=== PATIENT | male | born 1965 | race Caucasian/White ===

== ENCOUNTER 2020-01-03 00:49 | Day surgery (SDC) | payer OTHER, SELFPAY ==
[2019-12-28 14:18] VITALS: BMI 33.8
[2020-01-03 08:23] VITALS: BP 131/92; PULSE 79; RESP 18; TEMP 36.7
[2020-01-03] MEDS: LACTATED RINGERS 1,000 ML 150 ML IV CONT (08:25)
--- NOTE | 2020-01-03 08:37 | WPDANESEPPF ---
Anes - Initial Pre Proc Eval Procedure: Operation Date: 01/03/20 09:00 Proposed Procedures p Screening Colonoscopy - Nabeel Jhaveri DO Date/Time: 01/03/20 08:37 Surgeon: Nabeel Jhaveri DO Pre Op Diagnosis: Fam Hx Colon Ca Patient Data Age: 54 Gender: M Height: 1.8 m Weight: 107 kg Last Vital Signs Temp 36.7 C 01/03/20 08:23 Pulse 79 01/03/20 08:23 Resp 18 01/03/20 08:23 BP 131/92 H 01/03/20 08:23 Allergies Allergy/AdvReac Type Severity Reaction Status Date / Time levothyroxine sodium Allergy Severe Rash Verified 01/03/20 08:18 [From Levothroid] Home Medications Medication Instructions Recorded Confirmed Type escitalopram oxalate 20 mg PO DAILY 12/28/19 01/03/20 History fexofenadine [Herlinda Allergy] 60 mg PO Q12H 12/28/19 01/03/20 History meloxicam 15 mg PO DAILY 12/28/19 01/03/20 History testosterone cypionate 200 mg IM WEEKLY 12/28/19 01/03/20 History thyroid (pork) [[place] Thyroid] 60 mg PO DAILY 12/28/19 01/03/20 History vitamin B complex [Super B-50 1 cap PO DAILY 12/28/19 01/03/20 History Complex] Patient hx anesthesia problems: none Family hx anesthesia problems: none PMFSH Past Medical History Medical History (Updated 01/02/20 @ 14:20 by Aldair Lynch DO) Depression Hypothyroidism JULES (obstructive sleep apnea) Family History Family History (Updated 05/21/16 @ 23:19 by DOCTOR UNKNOWN) Mother Cerebrovascular accident Family history of kidney stones Father Family history of diabetes mellitus in first degree relative Family history of primary malignant neoplasm of liver Family history of malignant neoplasm of kidney Social History Social History Smoking status: Never smoker Alcohol intake: never Anes - Eval Final PreProcedure Day of Procedure 01/03/20 08:37 Patient weight: obese Heart: regular rate and rhythm Lungs: clear to auscultation and normal air movement Airway: Mallampati scale class II Neurological: alert and oriented Last oral intake: >/= 8 hours ASA classification: III Emergent: no Anesthetic plan: proceed Anesthesia type and monitoring: general GIVS and standard monitoring Informed Consent: The patient's anesthetic plan and its attendant risks and benefits were discussed with the patient/family/POA. Questions were solicited and answers provided to the satisfaction of the patient/family/POA.
--- NOTE | 2020-01-03 09:00 | P.HP_ITS ---
H&P: HPI History of Present Illness Chief complaint: Fam Hx Colon Ca Narrative: Reason for visit colonoscopy. This very pleasant gentleman is being seen at the request the primary physician. Patient was examined. Impression: Family history of colon cancer. Renal lithiasis. Hypothyroidism. Obstructive sleep apnea. Depression. Recommendation: Colonoscopy. History: This very pleasant gentleman is a family history colorectal cancer. His GI review systems negative. He is here for colonoscopy. Last colonoscopy was approximately 6 years or so ago. The patient has history of depression and is on medication for such. He also has a history of renal lithiasis. Physical examination: General: very pleasant patient in no acute distress. HEENT: Head was normocephalic sclerae is clear mouth without masses neck was supple. Heart: Rate rhythm regular without S3 or S4. Lungs: CTA. Abdomen: Soft with no guarding or rigidity. Bowel sounds were active. Neurologic: Cranial nerves 2 through 12 intact. No focal defects. No clonus. Musculoskeletal system: Revealed no joint tenderness or swelling no muscle atrophy. Extremities: Reveal no significant edema. Skin: Warm and dry with normal turgor. Mental status: intact. Patient is alert and oriented. Await thank you for allowing me to participate in the care of this most interesting patient. Review of Systems Review of Systems: All systems reviewed & are unremarkable except as noted in HPI and below PMFSH Past Medical History Medical History (Updated 01/03/20 @ 09:01 by Nabeel Jhaveri DO) Depression Hypothyroidism JULES (obstructive sleep apnea) Renal lithiasis Surgical History Surgical History (Updated 01/03/20 @ 09:02 by Nabeel Jhaveri DO) H/O lithotripsy Hx of colonoscopy Family History Family History (Updated 05/21/16 @ 23:19 by DOCTOR UNKNOWN) Mother Cerebrovascular accident Family history of kidney stones Father Family history of diabetes mellitus in first degree relative Family history of primary malignant neoplasm of liver Family history of malignant neoplasm of kidney Social History Social History Smoking status: Never smoker Alcohol intake: never Meds Home Medications and Allergies Home Medications Medication Instructions Recorded Confirmed Type escitalopram oxalate 20 mg PO DAILY 12/28/19 01/03/20 History fexofenadine [Herlinda Allergy] 60 mg PO Q12H 12/28/19 01/03/20 History meloxicam 15 mg PO DAILY 03/06/20 03/12/20 History testosterone cypionate 200 mg IM WEEKLY 12/28/19 01/03/20 History thyroid (pork) [[place] Thyroid] 60 mg PO DAILY 12/28/19 01/03/20 History vitamin B complex [Super B-50 1 cap PO DAILY 12/28/19 01/03/20 History Complex] Allergies Allergy/AdvReac Type Severity Reaction Status Date / Time levothyroxine sodium Allergy Severe Rash Verified 01/03/20 08:18 [From Levothroid] Vital Signs Vital Signs - 24 hr 01/03/20 08:23 Temperature 36.7 C Pulse Rate 79 Respiratory Rate 18 Blood Pressure 131/92 H
[2020-01-03 09:38] VITALS: BP 107/68; PULSE 67; RESP 20; O2SAT 95
[2020-01-03 09:48] VITALS: BP 115/77; PULSE 65; RESP 14; O2SAT 96
[2020-01-03 09:58] VITALS: BP 118/82; PULSE 70; RESP 19; O2SAT 97
== END 2020-01-03 10:14 | disposition home or self-care (01) ==
PROVIDERS: PCP Physician Assistant; Visit Provider Internal Medicine Gastroenterology
PROC: 0DJD8ZZ Inspection of Lower Intestinal Tract, Via Natural or Artificial Opening Endoscopic (ICD-10-PCS; CPT 45378; principal; 2020-01-03 09:00)
DX: Z12.11 Encounter for screening for malignant neoplasm of colon (principal); K63.5 Polyp of colon; K62.1 Rectal polyp; K64.8 Other hemorrhoids; E03.9 Hypothyroidism, unspecified; G47.33 Obstructive sleep apnea (adult) (pediatric); F32.9 Major depressive disorder, single episode, unspecified; E66.9 Obesity, unspecified; Z68.32 Body mass index [BMI] 32.0-32.9, adult
CPT/HCPCS: 45385; 45380; 88305; J2704; J7120

== ENCOUNTER 2020-01-11 08:26 | Outpatient (CLI) | payer OTHER, SELFPAY ==
--- NOTE | ~2020-01-11 | XR_ITS ---
XR abdomen/kub 1V DATE: 01/11/2020 08:46 INDICATION: Right groin pain TECHNIQUE: AP projection, 2 views COMPARISON: 04/20/[address] abdomen pelvis examination FINDINGS: There is an approximately 3 x 5 mm calcified calculus overlying the proximal right ureter a t the L2-3 level. There are multiple calcifications overlying the right kidney consistent with multip le right renal stones. No calcifications are noted overlying the left kidney. The psoas shadows are intact. No visceromegaly is evident. The bowel gas pattern is unremarkable, without evidence of obstruction. IMPRESSION: Approximately 3 x 5 mm proximal calcified right ureteral calculus Multiple nonobstructing right kidney stones Reviewed, dictated and finalized at [facility]. Reviewed, dictated and finalized at location D.
== END 2020-01-11 08:27 | disposition home or self-care (01) ==
PROVIDERS: PCP Physician Assistant; Visit Provider Physician Assistant
DX: R10.31 Right lower quadrant pain (principal); N20.0 Calculus of kidney
CPT/HCPCS: 74018

== ENCOUNTER → 2020-01-23 10:52 | Outpatient (CLI) | payer OTHER, SELFPAY ==
--- NOTE | ~2020-01-23 | XR_ITS ---
XR abdomen/kub 1V DATE: 01/23/2020 11:23 INDICATION: Right ureteral stone TECHNIQUE: AP projection, 2 views COMPARISON: 01/11/2020 KUB 01/23/2020 CT abdomen pelvis noncontrast examination FINDINGS: A calcified stone previously overlying the proximal right ureter on the 01/11/2020 KUB now i s noted in the lower pole right kidney. There are multiple right renal calcified stones. The psoas shadows are intact. No visceromegaly is evident. No evidence of bowel obstruction. Included skeletal structures are unremarkable, with the exception of a transitional lumbosacral verte bra with sacralization and pseudoarthrosis on the right. IMPRESSION: Nephrolithiasis Reviewed, dictated and finalized at [facility]. Reviewed, dictated and finalized at location B. IMPRESSION: Nephrolithiasis
--- NOTE | ~2020-01-23 | CT_ITS ---
EXAMINATION: CT abdomen pelvis wo con DATE: 01/23/2020 11:22 INDICATION: Right ureteral stone TECHNIQUE: Computed tomography (CT) of the abdomen and pelvis was performed without intravenous contr ast. Automated exposure control and iterative reconstruction technique were employed. Exam dose: 911 .67 mGy-cm total exam DLP. COMPARISON: 01/23/2020 KUB 01/11/2020 KUB 04/12/[address] abdomen pelvis FINDINGS: Normal heart size. No pericardial or pleural effusion. The lung bases are clear. The liver, spleen, pancreas and adrenal glands are unremarkable. No renal space-occupying mass lesion is evident on this limited noncontrast examination. There is approximately 3.5 mm obstructing proximal right ureteral calculus at the L2-3 level, with mo derate proximal right hydroureteronephrosis. There are multiple right nonobstructing kidney stones measuring up to 8 mm dimension, and several sma ll left nonobstructing kidney stones. No left ureteral calculus or left-sided hydronephrosis. Normal caliber of the abdominal aorta. No intraperitoneal or retroperitoneal or pelvic mass lesion or adenopathy or ascites. There is mild to moderate diffuse thickening of the urinary bladder wall there is moderate moderate p rostate enlargement. Small fat-containing inguinal hernias. Normal appendix. No bowel obstruction or bowel wall thickening, pneumatosis or intraperitoneal free a ir. Small fat-containing umbilical hernia. Diffuse idiopathic skeletal hyperostosis of the lower thoracic spine. No suspicious osteolytic or ost eoblastic lesions are noted. IMPRESSION: Approximately 3.5 mm obstructing calcified proximal right ureteral stone with moderate r ight hydronephrosis Bilateral nonobstructive nephrolithiasis Reviewed, dictated and finalized at [facility]. Reviewed, dictated and finalized at location B. IMPRESSION: Approximately 3.5 mm obstructing calcified proximal right ureteral stone with moderate right hydronephrosis Bilateral nonobstructive nephrolithiasis
== END ==
PROVIDERS: Visit Provider Urology
DX: N20.1 Calculus of ureter (principal); N20.0 Calculus of kidney; N13.30 Unspecified hydronephrosis
CPT/HCPCS: 74018; 74176

== ENCOUNTER 2020-02-11 12:02 | Outpatient (CLI) | payer OTHER, SELFPAY ==
--- NOTE | ~2020-02-11 | CT_ITS ---
EXAMINATION: CT abdomen pelvis wo con DATE: 02/11/2020 12:32 INDICATION: Calculus of the ureter TECHNIQUE: Computed tomography (CT) of the abdomen and pelvis was performed without intravenous contr ast. Automated exposure control and iterative reconstruction technique were employed. The dose-length product was 460.83 mGy-cm. COMPARISON: 01/23/2020 and 02/11/2020 FINDINGS: Lung bases are clear. Heart size is normal. No pericardial or pleural effusion. Liver, gallbladder, s pleen, pancreas and bilateral adrenal glands are normal. Bilateral nephrolithiasis with 5-6 x 4 mm ob structing stone at the right ureteropelvic junction with mild to moderate right hydronephrosis. At le ast 8 additional stones in the right kidney the next largest measuring 6 7 7 mm to lower pole and 3-4 mm at the upper pole. There are 2 small left renal stones measuring up to 2 mm. No stones along the ureters or left-sided hydronephrosis. Bladder is normal. Bowels including the appendix are normal. Sm all fat-containing left inguinal hernia. No free intraperitoneal gas or fluid. No pathologically enla rged abdominal or pelvic lymphadenopathy. Chronic mild anterior wedging at T5. Mild thoracic spondylo sis. IMPRESSION: 1. Bilateral nephrolithiasis with obstructing 5-6 x 4 mm stone at the right ureteropelvic junction wi th mild to moderate right hydronephrosis. Reviewed, dictated and finalized at location A. IMPRESSION: 1. Bilateral nephrolithiasis with obstructing 5-6 x 4 mm stone at the right ure teropelvic junction with mild to moderate right hydronephrosis.
--- NOTE | ~2020-02-11 | XR_ITS ---
XR abdomen/kub 1V DATE: 02/11/2020 12:16 INDICATION: Ureteral calculus TECHNIQUE: AP projection, 2 views COMPARISON: 01/23/2020 KUB FINDINGS: There is an approximately 6 L calcified calculus overlying the proximal right ureter. Multi ple additional calcified calculi are noted overlying the right kidney and possibly some subtle calcif ications of the left kidney as well. The psoas shadows are intact. No visceromegaly is evident. No evidence of bowel obstruction. Transitional lumbosacral vertebra with sacralization and pseudoarthrosis on the right. IMPRESSION: Approximately 6 mm calcified calculus of proximal right ureter Nephrolithiasis Reviewed, dictated and finalized at [facility]. Reviewed, dictated and finalized at location A.
== END 2020-02-11 12:03 | disposition home or self-care (01) ==
LOC: ANHIMG 12:03
PROVIDERS: PCP Physician Assistant; Visit Provider Urology
DX: N20.1 Calculus of ureter (principal); N20.0 Calculus of kidney; N13.30 Unspecified hydronephrosis
CPT/HCPCS: 74018; 74176

== ENCOUNTER 2020-03-06 11:11 | Outpatient (CLI) | payer OTHER, SELFPAY ==
--- NOTE | ~2020-03-06 | XR_ITS ---
XR abdomen/kub 1V DATE: 03/06/2020 11:28 INDICATION: Ureteral calculus TECHNIQUE: AP projection, 2 views COMPARISON: 02/11/2020 KUB 02/11/[address] abdomen pelvis FINDINGS: Previously reported 6 mm calcified stone overlying proximal right ureter is no longer prese nt. No apparent calcifications are noted overlying the kidneys on the current KUB. Noncontrast CT abd omen pelvis examination would be more sensitive for detection of any urinary tract calculi. No bowel obstruction. The psoas shadows are intact. No visceromegaly is evident. Diffuse idiopathic skeletal hyperostosis of the thoracic spine. Transitional lumbosacral vertebra with sacralization and pseudoarthrosis on the right. IMPRESSION: Resolution of 6 mm proximal right ureteral calcified stone since 02/11/2020 Reviewed, dictated and finalized at [facility]. Reviewed, dictated and finalized at location A.
== END 2020-03-06 11:12 | disposition home or self-care (01) ==
LOC: ANHIMG 11:16
PROVIDERS: PCP Physician Assistant; Visit Provider Urology
DX: N20.1 Calculus of ureter (principal)
CPT/HCPCS: 74018

== ENCOUNTER 2021-02-13 08:00 | Outpatient (CLI) | payer OTHER, SELFPAY ==
--- NOTE | ~2021-02-13 | XR_ITS ---
XR abdomen/kub 1V DATE: 02/13/2021 08:27 INDICATION: Bilateral kidney stones TECHNIQUE: AP projection, 2 views COMPARISON: 03/06/[address] abdomen pelvis FINDINGS: Multiple (at least 5) small (approximately 3 mm or smaller) faint calcific densities are no esteban overlying the lower pole the right kidney. Noncontrast CT examination would be more sensitive 4 d etection and localization of urinary tract calculi. No apparent calcification overlying the ureters. Stable several left-sided calcified pelvic phlebolit hs. No visceromegaly is evident. The psoas shadows are intact. No evidence of bowel obstruction. IMPRESSION: Right nephrolithiasis Reviewed, dictated and finalized at [facility]. Reviewed, dictated and finalized at location A. IMPRESSION: Right nephrolithiasis
== END 2021-02-13 08:01 | disposition home or self-care (01) ==
LOC: ANHIMG 08:06
PROVIDERS: PCP Physician Assistant; Visit Provider Nurse Practitioner Adult Health
DX: N20.0 Calculus of kidney (principal)
CPT/HCPCS: 74018

== ENCOUNTER 2023-08-06 12:02 | Emergency (ER) | payer OTHER, SELFPAY ==
[2023-08-06 12:05] VITALS: BP 174/93; PULSE 87; RESP 16; TEMP 36.3; O2SAT 98
--- NOTE | 2023-08-06 12:38 | ED.HEATRA ---
HPI - Head Injury General Chief complaint: Head Injury Stated complaint: head injury, small laceration Time Seen by Provider: 08/06/23 12:18 Source: patient Mode of arrival: ambulatory Limitations: no limitations History of Present Illness HPI Narrative: This is a 57 year old male that presents to the ER for a head injury just prior to arrival. Reports he was trimming bushes and the handle of the hand zipper trimmer hit him in the head. Sustained a laceration above his right eyebrow. He is up to date on tetanus. Denies vision changes, vomiting, numbness or weakness. Related Data Home Medications Medication Instructions Recorded Confirmed escitalopram oxalate 20 mg tablet 20 mg PO DAILY 12/28/19 09/22/22 fexofenadine 60 mg tablet (Herlinda 60 mg PO Q12H 12/28/19 09/22/22 Allergy) meloxicam 15 mg tablet 15 mg PO DAILY 12/28/19 09/22/22 testosterone cypionate 200 mg/mL 200 mg IM WEEKLY 12/28/19 09/22/22 intramuscular oil thyroid (pork) 60 mg tablet 60 mg PO DAILY 12/28/19 09/22/22 ([place] Thyroid) vitamin B complex (Super B-50 1 cap PO DAILY 12/28/19 09/22/22 Complex capsule) acetaminophen 500 mg tablet 500 mg PO Q6H PRN 08/11/22 09/22/22 (Tylenol Extra Strength) antiarthritic combination no.2 900 mg PO 08/11/22 09/22/22 mg tablet (glucosamine-chondroitin) aspirin 325 mg tablet 325 mg PO DAILY 08/11/22 09/22/22 bupropion HCl 300 mg 24 hr tablet, 300 mg PO QAM 08/11/22 09/22/22 extended release caffeine 200 mg tablet 200 mg PO BID PRN 08/11/22 09/22/22 cholecalciferol (vitamin D3) 125 125 mcg PO DAILY 08/11/22 09/22/22 mcg (5,000 unit) capsule omega-3 fatty acids-fish oil 360 1 cap PO DAILY 08/11/22 09/22/22 mg-1,200 mg capsule (Fish Oil) Allergies Allergy/AdvReac Type Severity Reaction Status Date / Time levothyroxine sodium Allergy Severe Rash Verified 09/22/22 13:30 [From Levothroid] Review of Systems Review of Systems: CONSTITUTIONAL: Denies fever EYES: Denies visual changes GASTROINTESTINAL: Denies vomiting NEUROLOGIC: Denies headache, numbness, or weakness. All systems reviewed & are unremarkable except as noted in HPI and below PMFSH Past Medical History Medical History (Updated 08/06/23 @ 12:51 by Paige Ruff PA-C) Adenomatous colon polyp Allergies Arthritis Asthma Depression History of kidney stones Hypertension Hypothyroidism JULES (obstructive sleep apnea) Renal lithiasis Tear of left rotator cuff Thyroid disorder Surgical History Surgical History H/O lithotripsy History of elbow surgery Hx of colonoscopy Family History Family History Mother Cerebrovascular accident Family history of kidney stones Asthma Depression Thyroid disorder Father Family history of diabetes mellitus in first degree relative Family history of primary malignant neoplasm of liver Family history of malignant neoplasm of kidney Diabetes mellitus Hypertension Depression Heart disease Cerebrovascular accident Sibling Depression Social History Social History Smoking status: Never smoker Alcohol intake: never Substance use: never Living arrangements: with roommate(s) 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 HEAD: Normocephalic. 1.5cm linear superficial laceration above the right eyebrow EYES: PERRLA and EOMI. ENT: Nares clear, no rhinorrhea or epistaxis. Mucous membranes moist. Oropharynx without tonsillar hypertrophy exudate or other lesions. Bilateral TMs pearly paul non-bulging NECK: Supple. No adenopathy or masses. CHEST: Clear to auscultation. No respiratory distress. No wheezes rales or rhonchi HEART: Regular rate and rhythm. No murmur heard. Normal peripheral pulses. EXTREMITIES: Nor
[2023-08-06 12:57] VITALS: BP 163/98; PULSE 89; RESP 16; TEMP 36.6; O2SAT 100
== END 2023-08-06 13:10 | disposition home or self-care (01) ==
PROVIDERS: Emergency Provider Physician Assistant; PCP Physician Assistant
DX: S01.111A Laceration without foreign body of right eyelid and periocular area, initial encounter (principal); J45.909 Unspecified asthma, uncomplicated; I10 Essential (primary) hypertension; G47.33 Obstructive sleep apnea (adult) (pediatric); E03.9 Hypothyroidism, unspecified; M19.90 Unspecified osteoarthritis, unspecified site; F32.A Depression, unspecified; Z79.82 Long term (current) use of aspirin; Z86.010 Personal history of colon polyps; Z87.442 Personal history of urinary calculi; W22.8XXA Striking against or struck by other objects, initial encounter; Y93.H2 Activity, gardening and landscaping
CPT/HCPCS: 12011; 99283

== ENCOUNTER 2024-12-14 10:27 | Emergency (ER) | payer OTHER, SELFPAY ==
[2024-12-14] VITALS (14 sets, daily range): BP systolic 147–176; BP diastolic 99–113; PULSE 85–96; RESP 18; TEMP 36.6; O2SAT 92–100
--- NOTE | ~2024-12-14 | CT_ITS ---
EXAMINATION: CT abdomen pelvis wo con DATE: 12/14/2024 13:18 INDICATION: Left lower quadrant abdominal pain. Nephrolithiasis. TECHNIQUE: Computed tomography (CT) of the abdomen and pelvis was performed without intravenous contr ast. Automated exposure control and iterative reconstruction technique were employed. The dose-length product was 432.82 mGy-cm. COMPARISON: 02/11/2020 FINDINGS: Lung bases are clear. Heart size is normal. No pericardial or pleural effusion. Liver, gallbladder, s pleen, pancreas and bilateral adrenal glands are normal. Multiple bilateral renal stones with 5 mm ob structing stone at the proximal left ureter resulting in mild left hydronephrosis and moderate perine phric stranding. There are at least 12 stones in the right kidney, the largest clustered in a lower p ole calyx measuring up to 6 mm in maximal diameter. There are at least 7 additional stones in the lef t kidney, the largest measuring up to 4 mm. No other ureteral stones. Small region of increased densi ty in the right deep and aspirated bladder near the ureterovesicular junction consistent with collect ion minute stones or milk of calcium. No other ureteral stones. Bladder is otherwise unremarkable. Dimitris wels including appendix are normal. Prostatomegaly measuring 5.3 x 4.3 cm. Small left fat-containing inguinal hernia. No free intraperitoneal gas or fluid. No pathologically enlarged abdominal or pelvic lymphadenopathy. Mild lumbar and lower thoracic spondylosis. IMPRESSION: 1. Bilateral nephrolithiasis with obstructing 5 mm stone at the proximal left ureter with mild left h ydronephrosis and moderate perinephric stranding. Reviewed, dictated and finalized at location A. AR SEPARATOR IMPRESSION: 1. Bilateral nephrolithiasis with obstructing 5 mm stone at the proximal left u reter with mild left hydronephrosis and moderate perinephric stranding.
--- OUTSIDE RECORDS SUMMARY | 2024-12-14 11:01 | XMS_ITS ---
Author Organization Unknown Medications Medication Instructions Effective Dates (start - stop) Status 24 HR bupropion hydrochlorid e 300 MG Extended Release Oral Tablet [id number]:00:00.00 0+00:00 - Completed escitalopram 20 MG Oral Tablet 2 [id number]:00:00.000+00:00 - Completed - [id number]:00 :00.000+00:00 - Completed ofloxacin 3 MG/ML Ophthalmic Solution [id number]:00:00.000+00:0 0 - Completed meloxicam 15 MG Oral Tablet 2022T:00:00.000+00:00 - Completed fluticasone propionate 0.05 MG/ACTUAT Metered Dose Nasal [place] [id number]:00:00.000+00:0 0 - Completed meloxicam 15 MG Oral Tablet 2022:00:00.000+00:00 - Completed escitalopram 20 MG Oral Tablet 2 [id number]:00:00.000+00:00 - Completed triamcinolone acetonide 1 MG /ML Topical Cream [id number]:00:00.000+00:0 0 - Completed - [id number]:00 :00.000+00:00 - Completed escitalopram 20 MG Oral Tablet 2 [id number]:00:00.000+00:00 - Completed 24 HR bupropion hydrochlorid e 300 MG Extended Release Oral Tablet [id number]:00:00.00 0+00:00 - Completed escitalopram 20 MG Oral Tablet 2 [id number]:00:00.000+00:00 - Completed 24 HR bupropion hydrochlorid e 300 MG Extended Release Oral Tablet [id number]:00:00.00 0+00:00 - Completed 24 HR bupropion hydrochlorid e 300 MG Extended Release Oral Tablet [id number]:00:00.00 0+00:00 - Completed ofloxacin 3 MG/ML Otic Solution [id number]:00:00.000+00:00 - Completed meloxicam 15 MG Oral Tablet 2021:00:00.000+00:00 - Completed amoxicillin 875 MG / clavula abhilash 125 MG Oral Tablet [id number]:00:00.000+00:0 0 - Completed Patient Care team information Name Category Status Period Participants - - Proposed period not known -
--- OUTSIDE RECORDS SUMMARY | 2024-12-14 11:01 | XMS_ITS | Clinical Summary ---
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 Name Role Phone Tamiko Solitario Primary Care Provider [phone] Allergies No known active allergies Medications fexofenadine (HERLINDA) 180 mg tablet 1 tablet (180 mg total) daily Active vitamin B complex capsule Rx: Vitamin B Complex-C - Capsule Active cyanocobalamin 2,000 mcg tablet daily Active BD LUER-KAYLEEN SYRINGE 3 mL 23 x 1 syringe USE WEEKLY WITH TESTOSTERONE 12 Syringe 3 9 Active testosterone cypionate (DEPO-TESTOTER ONE) 200 mg/mL injection Inject 0.5 mL (100 mg total) into the muscle as instructed once a week 6 mL 1 9 Active triamcinolone (KENALOG) 0.1 % cream Apply topically 2 (two) times a day as needed for irritation 45 g 3 Active zinc gluconate 50 mg tablet Take 1 tablet (50 mg total) by mouth daily Active fluticasone propionate (FLONASE) 50 mcg/actuation nasal sprayIndicatio ns:Acute maxillary sinusitis, recurrence not specified Administer 2 sprays into each nostril daily 1 each 3 Active omega 3-oqw-wus-fish oil 1,000 mg (120 mg-180 mg) capsule Active glucosam-navid- tkz7-C-owxy-melanie sw 750 mg-644 mg- 30 mg-1 mg tablet Take by mouth Active calcium sirv-M3-terair ium glo 133 mg calcium -133 unit-67 mg capsule Take by mouth Activ e albuterol HFA (PROVENTIL HFA,VENTOLIN HFA,PROAIR HFA) 90 mcg/actuation inhaler Inhale 2 puffs every 6 (six) hours as needed for wheezing 1 each 1 4 12/20/19 25 Active cyclobenzaprin e (FLEXERIL) 10 mg tabletIndicati ons:Muscle soreness Take 1 tablet (10 mg total) by mouth 2 (two) times a day as needed for muscle spasms for up to 5 days 10 tablet 4 Active buPROPion XL (WELLBUTRIN XL) 300 mg 24 hr tablet TAKE 1 TABLET BY MOUTH EVERY DAY IN THE MORNING 90 tablet 1 4 Active Kingsbury Thyroid 60 mg tablet TAKE 1 TABLET BY MOUTH EVERY DAY 30 tablet 5 4 Active escitalopram (LEXAPRO) 20 mg tablet TAKE 1 TABLET BY MOUTH EVERY DAY 90 tablet 1 4 Active meloxicam (MOBIC) 15 mg tabletIndicati ons:Right sided sciatica TAKE 1 TABLET BY MOUTH EVERY DAY 30 tablet 5 4 Active benzonatate (TESSALON) 200 mg capsuleIndicat ions:Acute cough Take 1 capsule (200 mg total) by mouth 3 (three) times a day as needed for cough keep tessalon out of reach of children, especially children under the age of 10, due to possible serious risk such as if ingested by children under the age of 10. 30 capsule 5 Active amoxicillin-cl avulanate (Augmentin) 875-125 mg per tabletIndicati ons:Acute maxillary sinusitis, recurrence not specified Take 1 tablet by mouth 2 (two) times a day for 7 days 14 tablet 5 12/03/19 25 Active Problems Problem Noted Date Diagnosed Date Diabetes mellitus screening 06/20/2024 Assessment & Plan (06/20/2024 5:27 PM CDT): Check labs Elevated hemoglobin (CMS/HCC) 12/31/2023 Assessment & Plan (06/20/2024 5:27 PM CDT): Elevated hemoglobin. Recheck labs. Maybe secondary to his testosterone Assessment & Plan (12/31/2023 3:04 PM MANAGER GRAPHIC): Patient has elevated hemoglobin. Check iron indices. He declines any knowledge of hemochromatosis in the family Obesity (BMI 30-39.9) 06/15/2023 Assessment & Plan (06/20/2024 5:27 PM CDT): Discussed the patient's BMI. The BMI is above average. BMI management plan is completed. BMI Follow-up includes: nutrition counseling, exercise counseling and education provided. Assessment & Plan (02/17/2024 2:56 PM CDT): Weight/BMI is in healthy range. Continue healthy lifestyle to maintain. Assessment & Plan (12/31/2023 3:02 PM MANAGER GRAPHIC): Discussed the patient's BMI. The BMI is above average. BMI management plan is completed. BMI Follow-up includes: nutrition counseling, exercise counseling and education provided. Assessment & Plan (06/15/2023 9:16 AM CDT): Discussed the patient's BMI. The BMI is above average. BMI management plan is completed. BMI Follow-up includes: nutrition counseling, exercise counseling and education provided. Grief 06/15/2023 Assessment & Plan (06/20/2024 8:59 AM CDT): Persistent depression symptoms that seem to be intensified by grief of his father's about a year ago. Discussed grief counseling with [facility] as well as grief share groups. Discussed adding medication to his Lexapro 20 and Wellbutrin XL 300 but together agreed that counseling is helping at this point is most important Assessment & Plan (06/15/2023 10:23 PM CDT): Doing well with Lexapro and Wellbutrin. Feels like he needs a little more help as worried about anxiety. Will go ahead and start BuSpar 10 mg up to t.i.d. p.r.n.. Strongly encouraged counseling through hospice. Also encouraged him sit with hospice so that he understands the dying process so that him and his dad will both have more comfort during this time. Annual physical exam 12/10/2021 Assessment & Plan (06/20/2024 8:59 AM CDT): Encouraged healthy lifestyle, good nutrition and exercise. Encouraged Calcium and Vitamin D and weight bearing exercise for bone health. Reviewed immunizations Reviewed age appropirate screenings. Assessment & Plan (12/31/2023 2:58 PM MANAGER GRAPHIC): Encouraged healthy lifestyle, good nutrition and exercise. Encouraged Calcium and Vitamin D and weight bearing exercise for bone health. Reviewed immunizations Reviewed age appropirate screenings. Assessment & Plan (12/15/2022 9:24 AM MANAGER GRAPHIC): Encouraged healthy lifestyle, good nutrition and exercise. Encouraged Calcium and Vitamin D and weight bearing exercise for bone health. Reviewed immunizations Reviewed age appropirate screenings. Assessment & Plan (12/10/2021 6:28 PM MANAGER GRAPHIC): Encouraged healthy lifestyle, good nutrition and exercise. Encouraged Calcium and Vitamin D and weight bearing exercise for bone health. Reviewed immunizations Reviewed age appropirate screenings. Chronic nasal congestion 08/09/2021 Assessment & Plan (08/09/2021 9:26 PM CDT): Suspect this is sinusitis but with a pandemic in our community will go ahead and rule out COVID. He will be sent for COVID testing at this wants the collection site. He is to quarantine until those test results are available. Will go ahead and start antibiotic, antihistamine (Claritin OR Zyrtec), Mucinex 12hour and Steroid nasal spray (Flonase). Push fluids. Rest. Supportive care. If sxs worsen or don\'t improve, pt is to followup in the office. Fatigue 06/04/2021 Assessment & Plan (06/20/2024 5:27 PM CDT): Probably multifactorial. Check labs and followup to re-evaluate Assessment & Plan (12/15/2022 9:23 AM MANAGER GRAPHIC): Probably multifactorial. Check labs and followup to re-evaluate Assessment & Plan (12/10/2021 6:26 PM MANAGER GRAPHIC): Probably multifactorial. Check labs and followup to re-evaluate Assessment & Plan (06/04/2021 8:40 AM CDT): Probably multifactorial. Check labs and followup to re-evaluate Mixed hyperlipidemia 06/04/2021 Assessment & Plan (06/20/2024 5:27 PM CDT): Encouraged patient to follow low fat/low chol diet like the Mediterranean diet. Increase good fats in the diet. Increase exercise. Monitor labs as needed. Assessment & Plan (12/31/2023 2:59 PM MANAGER GRAPHIC): Encouraged patient to follow low fat/low chol diet like the Mediterranean diet. Increase good fats in the diet. Increase exercise. Monitor labs as needed. Assessment & Plan (12/15/2022 9:23 AM MANAGER GRAPHIC): Encouraged patient to follow low fat/low chol diet like the Mediterranean diet. Increase good fats in the diet. Increase exercise. Monitor labs as needed. Assessment & Plan (12/10/2021 6:26 PM MANAGER GRAPHIC): Encouraged patient to follow fat/low chol diet like the Mediterranean diet. Increase good fats in the diet. Increase exercise. Monitor labs as needed. Assessment & Plan (06/04/2021 8:39 AM CDT): Encouraged patient to follow fat/low chol diet like the Mediterranean diet. Increase good fats in the diet. Increase exercise. Monitor labs as needed. Right sided sciatica 05/30/2020 Assessment & Plan (05/30/2020 7:55 PM CDT): NSAIDs prn ICE/heat Exercise/activity, do not sit/lay around excessively Encouraged PT. . Family history of colon cancer 05/22/2019 Assessment & Plan (06/20/2024 8:57 AM CDT): Next colonoscopy is due in December of 2024. Will refer to his next visit as he prefers to see Dr. Erik billings at [facility]. Assessment & Plan (07/07/2019 10:26 AM CDT): Pt has made contact with Dr. Jhaveri again for followup colonoscopy. He plans to repeat in the new year. Assessment & Plan (05/22/2019 8:21 AM CDT): Refer back to Dr. Jhaveri for repeat colonoscopy Seasonal allergies 04/06/2019 Assessment & Plan (06/20/2024 8:58 AM CDT): Continue allergy regimen with Herlinda albuterol and Flonase Assessment & Plan (12/31/2023 3:01 PM MANAGER GRAPHIC): Continue with allergy regimen Assessment & Plan (06/04/2021 6:42 AM CDT): Stable with current otc regimen Assessment & Plan (12/01/2020 8:27 AM MANAGER GRAPHIC): Continue otc prn Assessment & Plan (07/07/2019 10:27 AM CDT): Stable with current regimen. BMI 32.0-32.9,adult 10/21/2018 Assessment & Plan (06/20/2024 5:26 PM CDT): Discussed the patient's BMI. The BMI is above average. BMI management plan is completed. BMI Follow-up includes: nutrition counseling, exercise counseling and education provided. Assessment & Plan (07/07/2019 10:25 AM CDT): Obesity is unchanged. Discussed the patient's BMI. The BMI is above average. BMI management plan is completed. BMI Follow-up includes: nutrition counseling, exercise counseling and education provided. Assessment & Plan (02/01/2019 8:44 AM CDT): BMI Follow-up includes: Discussed diet and exercising counseling. Acquired hypothyroidism 07/03/2018 Assessment & Plan (06/20/2024 5:27 PM CDT): Continue Kingsbury 60 mg. Monitor labs. Assessment & Plan (12/31/2023 2:59 PM MANAGER GRAPHIC): Continue levothyroxine. Monitor labs. Assessment & Plan (06/15/2023 10:22 PM CDT): Continue levothyroxine. Monitor labs. Assessment & Plan (12/15/2022 9:23 AM MANAGER GRAPHIC): Continue levothyroxine. Monitor labs. Assessment & Plan (12/10/2021 6:23 PM MANAGER GRAPHIC): Continue levothyroxine. Monitor labs. Assessment & Plan (06/04/2021 6:41 AM CDT): Continue levothyroxine. Monitor labs. Assessment & Plan (12/01/2020 8:27 AM MANAGER GRAPHIC): Check labs. Continue Kingsbury Assessment & Plan (04/28/2020 8:30 AM CDT): Due to check labs. Continue replacement Assessment & Plan (11/26/2019 9:13 AM MANAGER GRAPHIC): Continue replacement Assessment & Plan (07/07/2019 10:25 AM CDT): Stable. Continue replacement Assessment & Plan (05/22/2019 8:11 AM CDT): Continue with the Kingsbury. Check the labs prn Hypogonadism in male 07/03/2018 Assessment & Plan (06/20/2024 8:58 AM CDT): Continue with urology for testosterone injections Assessment & Plan (12/31/2023 2:59 PM MANAGER GRAPHIC): Continue testosterone supplement per Urology Assessment & Plan (12/15/2022 9:23 AM MANAGER GRAPHIC): Continue per Urology for management of his hypogonadism and testosterone replacement Assessment & Plan (12/10/2021 6:23 PM MANAGER GRAPHIC): Continue Testosterone replacement managed by Urology Assessment & Plan (06/04/2021 6:41 AM CDT): Continue testosterone injections per Urology Assessment & Plan (12/01/2020 10:32 AM MANAGER GRAPHIC): Managed by Urology Assessment & Plan (04/28/2020 8:30 AM CDT): Managed by Urology Assessment & Plan (11/26/2019 9:12 AM MANAGER GRAPHIC): Continue the replacement Assessment & Plan (07/07/2019 10:24 AM CDT): Stable with testosterone replacement Assessment & Plan (05/22/2019 8:11 AM CDT): Continue the supplement Moderate episode of recurrent major depressive d isorder 05/30/2017 Assessment & Plan (06/20/2024 8:59 AM CDT): Persistent depression symptoms that seem to be intensified by grief of his father's about a year ago. Discussed grief counseling with E[facility] as well as grief share groups. Discussed adding medication to his Lexapro 20 and Wellbutrin XL 300 but together agreed that counseling is helping at this point is most important Assessment & Plan (12/31/2023 3:02 PM MANAGER GRAPHIC): Stable with Wellbutrin and Lexapro Assessment & Plan (06/15/2023 10:22 PM CDT): Doing well with Lexapro and Wellbutrin. Feels like he needs a little more help as worried about anxiety. Will go ahead and start BuSpar 10 mg up to t.i.d. p.r.n.. Strongly encouraged counseling through hospice. Also encouraged him sit with hospice so that he understands the dying process so that him and his dad will both have more comfort during this time. Assessment & Plan (12/15/2022 9:23 AM MANAGER GRAPHIC): Continue Wellbutrin and Lexapro Assessment & Plan (12/10/2021 6:22 PM MANAGER GRAPHIC): Patient is having increased depression sxs. He denies any suicidal or homocidal thoughts. Continue LExapro 20 Increase WellbutrinXL 300mg He is to call if he notes increase in sxs or if his sxs don't respond to the dose increase. Assessment & Plan (06/04/2021 6:42 AM CDT): Stable with wellbutrin and lexapro Assessment & Plan (12/01/2020 8:27 AM MANAGER GRAPHIC): Continue lexapro and Wellbutrin Assessment & Plan (05/30/2020 7:54 PM CDT): Improving with addition of the Wellbutrin. Continue the lexparo Assessment & Plan (04/28/2020 8:31 AM CDT): Continue lexapro. Start Wellbutrin. No history of seizures. Reviewed risks, benefit, alternatives, side effects and proper use. Take first thing in the morning. He is on swing so will have to shift the dosing. He voiced understanding. Assessment & Plan (11/26/2019 9:18 AM MANAGER GRAPHIC): Stable with the Lexapro. Assessment & Plan (07/07/2019 10:27 AM CDT): This is a significant, separately identifiable problem that was evaluated and managed on the same day as the wellness exam Improving with the Lexapro. Still not sleeping great. Monitor closely as may be more related to shift work. Assessment & Plan (05/22/2019 8:24 AM CDT): Not fully controlled. Increase to 20mg daily. Will send a new Rx. Followup 4-6 weeks Resolved Problems Problem Noted Date Diagnosed Date Resolved Date Left thigh pain 02/17/2024 06/20/2024 Assessment & Plan (02/17/2024 3:00 PM CDT): Patient is complaining of left thigh pain. He states he feels very point tender mid thigh lateral side. I do not appreciate an actual mass but I can appreciate the tenderness. He describes numb streak from his groin down to his ankle on the medial side. He has good strength and full range of motion of the hip. Some aggravation with flexion but no aggravation or replication of his pain with trying to stressed that IT band. Suspect this is musculoskeletal and not related to the injection that he received the day of presentation of his discomfort. Recommend physical therapy. Stressed the importance of decreasing and returning back to only Mobic not adding additional ibuprofen as this will not be healthy for his kidney function. He can use Tylenol for breakthrough pain. Ice and heat to the area as well as topicals as needed. Will await evaluation by physical therapy and if symptoms persist will need to further evaluate. He is in agreement with the plan BMI 32.0-32.9,adult 06/15/2023 02/17/20 Assessment & Plan (12/31/2023 3:02 PM MANAGER GRAPHIC): Discussed the patient's BMI. The BMI is above average. BMI management plan is completed. BMI Follow-up includes: nutrition counseling, exercise counseling and education provided. Assessment & Plan (06/15/2023 9:16 AM CDT): Discussed the patient's BMI. The BMI is above average. BMI management plan is completed. BMI Follow-up includes: nutrition counseling, exercise counseling and education provided. Dermatitis 06/15/2023 06/20/2024 Assessment & Plan (06/15/2023 10:23 PM CDT): Sounds like he has tinea cruris. Recommend mixing equal amounts of the triamcinolone with Lamisil available [id number] to use in the area until resolved. Stressed the importance of keeping the area clean and dry may even use a powder if needed. Call if symptoms worsen or do not resolve BMI 31.0-31.9,adult 12/15/2022 06/20/20 Assessment & Plan (02/17/2024 2:56 PM CDT): Weight/BMI is in healthy range. Continue healthy lifestyle to maintain. Assessment & Plan (12/15/2022 8:31 AM MANAGER GRAPHIC): Discussed the patient's BMI. The BMI is above average. BMI management plan is completed. BMI Follow-up includes: nutrition counseling, exercise counseling and education provided. Obesity (BMI 30-39.9) 12/10/20212022 Assessment & Plan (12/15/2022 9:24 AM MANAGER GRAPHIC): Discussed the patient's BMI. The BMI is above average. BMI management plan is completed. BMI Follow-up includes: nutrition counseling, exercise counseling and education provided. Assessment & Plan (12/10/2021 8:11 AM MANAGER GRAPHIC): Obesity is unchanged. Discussed the patient's BMI. The BMI is above average. BMI management plan is completed. BMI Follow-up includes: nutrition counseling, exercise counseling and education provided. BMI 33.0-33.9,adult 12/10/2021 12/15/19 Assessment & Plan (12/10/2021 8:12 AM MANAGER GRAPHIC): Obesity is unchanged. Discussed the patient's BMI. The BMI is above average. BMI management plan is completed. BMI Follow-up includes: nutrition counseling, exercise counseling and education provided. Prostate cancer screening 12/10/2021 Assessment & Plan (12/10/2021 6:26 PM MANAGER GRAPHIC): Check labs Arthralgia 12/10/2021 06/20/2024 Assessment & Plan (12/10/2021 6:27 PM MANAGER GRAPHIC): This is a significant, separately identifiable problem that was evaluated and managed on the same day as the wellness exam Patient is noting increased joint pain. Mother and sister both have RA. Will check labs and determine followup pending results. Acute non-recurrent frontal sinusitis 12/10/2021 12/15/2022 Assessment & Plan (12/10/2021 6:29 PM MANAGER GRAPHIC): This is a significant, separately identifiable problem that was evaluated and managed on the same day as the wellness exam Start antibiotic, antihistamine (Claritin OR Zyrtec), Mucinex 12hour and Steroid nasal spray (Flonase). Push fluids. Rest. Supportive care. If sxs worsen or don\'t improve, pt is to followup in the office. Obesity (BMI 30-39.9) 06/04/20212021 Assessment & Plan (06/04/2021 8:11 AM CDT): Obesity is unchanged. Discussed the patient's BMI. The BMI is above average. BMI management plan is completed. BMI Follow-up includes: nutrition counseling, exercise counseling and education provided. BMI 32.0-32.9,adult 06/04/2021 12/10/19 Assessment & Plan (06/04/2021 8:11 AM CDT): Obesity is unchanged. Discussed the patient's BMI. The BMI is above average. BMI management plan is completed. BMI Follow-up includes: nutrition counseling, exercise counseling and education provided. Diabetes mellitus screening 06/04/2021 06/15/2023 Assessment & Plan (12/15/2022 9:24 AM MANAGER GRAPHIC): Check labs Assessment & Plan (12/10/2021 6:26 PM MANAGER GRAPHIC): Check labs Assessment & Plan (06/04/2021 8:39 AM CDT): Check labs BMI 34.0-34.9,adult 12/01/2020 06/04/20 21 Assessment & Plan (12/01/2020 8:03 AM MANAGER GRAPHIC): Obesity is unchanged. Discussed the patient's BMI. The BMI is above average. BMI management plan is completed. BMI Follow-up includes: nutrition counseling, exercise counseling and education provided. Obesity (BMI 30-39.9) 12/01/20202020 Assessment & Plan (12/01/2020 8:03 AM MANAGER GRAPHIC): Obesity is unchanged. Discussed the patient's BMI. The BMI is above average. BMI management plan is completed. BMI Follow-up includes: nutrition counseling, exercise counseling and education provided. Annual physical exam 11/28/2020 021 Assessment & Plan (12/01/2020 8:28 AM MANAGER GRAPHIC): Encouraged healthy lifestyle, good nutrition and exercise. Encouraged Calcium and Vitamin D and weight bearing exercise for bone health. Reviewed immunizations Reviewed age appropirate screenings. Obesity (BMI 30-39.9) 04/28/20202020 Assessment & Plan (05/30/2020 7:52 PM CDT): Obesity is unchanged. Discussed the patient's BMI. The BMI is above average. BMI management plan is completed. BMI Follow-up includes: nutrition counseling, exercise counseling and education provided. Assessment & Plan (04/28/2020 8:31 AM CDT): Obesity is unchanged. Discussed the patient's BMI. The BMI is above average. BMI management plan is completed. BMI Follow-up includes: nutrition counseling, exercise counseling and education provided. Right groin pain 01/04/2020 04/28/2020 Assessment & Plan (01/04/2020 7:45 AM CDT): Discussed differentials of kidney stones vs hernia vs other etiology. Pt left without leaving urine sample. Will check KUB and await results for plans. If KUB is negative and pain persists, may consider hernia workup Elevated BP without diagnosis of hypertension 11/26/1912/31/2023 Assessment & Plan (12/10/2021 6:26 PM MANAGER GRAPHIC): Bp is elevated today but he is on cold medication. Will have him start the Augmentin and stop all D products. He is to take his bp at work in 1 week to determine control. Assessment & Plan (12/01/2020 8:27 AM MANAGER GRAPHIC): Stable without medication Assessment & Plan (11/26/2019 9:14 AM MANAGER GRAPHIC): Pt to call with readings to see if needs treatment. Annual physical exam 07/07/2019 020 Assessment & Plan (07/07/2019 10:27 AM CDT): Encouraged healthy lifestyle, good nutrition and exercise. Encouraged Calcium and Vitamin D and weight bearing exercise for bone health. Reviewed immunizations Reviewed age appropirate screenings. BMI 35.0-35.9,adult 02/01/2019 12/01/19 21 Assessment & Plan (05/29/2020 8:25 AM CDT): Obesity is unchanged. Discussed the patient's BMI. The BMI is above average. BMI management plan is completed. BMI Follow-up includes: nutrition counseling, exercise counseling and education provided. Assessment & Plan (04/28/2020 8:30 AM CDT): Obesity is unchanged. Discussed the patient's BMI. The BMI is above average. BMI management plan is completed. BMI Follow-up includes: nutrition counseling, exercise counseling and education provided. Assessment & Plan (11/26/2019 9:13 AM MANAGER GRAPHIC): Obesity is unchanged. Discussed the patient's BMI. The BMI is above average. BMI management plan is completed. BMI Follow-up includes: nutrition counseling, exercise counseling and education provided. Assessment & Plan (07/07/2019 10:24 AM CDT): Obesity is unchanged. Discussed the patient's BMI. The BMI is above average. BMI management plan is completed. BMI Follow-up includes: nutrition counseling, exercise counseling and education provided. Assessment & Plan (05/22/2019 7:45 AM CDT): Obesity is unchanged. Discussed the patient's BMI. The BMI is above average. BMI management plan is completed. BMI Follow-up includes: nutrition counseling, exercise counseling and education provided. Assessment & Plan (02/01/2019 8:43 AM CDT): BMI Follow-up includes: Discussed diet and exercising counseling. Encounters Date Type Department Care Team Description 11/26/2024 4:30 PM MANAGER GRAPHIC Office Visit [facility] [address] [address] Jermaine Causey NP Acute maxillary sinusitis, recurrence not specified (Primary Dx); Acute cough from Last 3 Months Immunizations Immunization Administration Dates Next Due Influenza, Quadrivalent, Lexis l Culture-based MDCK, Preservative Free, Antibiotic Free, Intramuscular 07/28/2018 Influenza, Quadrivalent, Spl it, Preservative Free, Intramuscular 09/28/2022,08/16/2021,07/31/2020,08/08,06/20/2017,06/20/2017,06/17/2017 Influenza, Trivalent, IM (MDV) 08/24/2018,2013 Influenza, Unspecified 10/24/2023(Deferr ed: Patient Refused),10/24/2023(Deferred: Patient Refused),10/24/2023(Deferred: Patient Refused),11/24/2022(Deferred: Patient Refused),09/29/2022,08/16/2021, 020,08/08/2019 Pfizer SARS-CoV-2 Monovalent Vaccination (12+ Yrs) PURPLE 09/09/2022,08/16/2021,01/21/2021,11/22 Tdap 10/05/2018 ZOSTER Recombinant 03/14/2021,10/01/2020 Surgical History Surgery Date Site/Laterality Comments LITHOTRIPSY ELBOW SURGERY FRACTURE SURGERY Medical History Medical History Date Comments Obesity (BMI 30-39.9) 04/28/2020 BMI 35.0-35.9,adult 02/01/2019 Anxiety Asthma Depression Sleep apnea Kidney stone Family History Medical History Relation Name Comments Arthritis Father Bharat COPD Father Bharat Cancer Father Bharat Colon cancer Father Bharat Dementia Father Bharat Depression Father Bharat Diabetes Father Bharat Heart disease Father Bharat Hyperlipidemia Father Bharat Hypertension Father Bharat Kidney disease Father Bharat Liver cancer Father Bharat Heart disease Mother Stephany Stroke Mother Stephany Thyroid disease Mother Stephany Relation Name Status Comments Father Bharat Mother Stephany Social History Tobacco Use Types Packs/Day Years Used Date Smoking Tobacco: Never Smokeless Tobacco: Never Tobacco Cessation:Counseling Given: Not Answered Alcohol Use Standard Drinks/Week Comments Never 0 (1 standard drink = 0.6 oz pur e alcohol) AUDIT-C Answer Date Recorded Frequency of Alcohol Consumption Not on file 06/20/2024 Q2: How many drinks containi ng alcohol do you have on a typical day when you are drinking? 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 Not on file Not on file Obstetrics History Last Filed Vital Signs Vital Sign Reading Time Taken Comments Blood Pressure 145/89 11/26/2024 5:00 PM MANAGER GRAPHIC Pulse 82 11/26/2024 5:00 PM MANAGER GRAPHIC Temperature 36.6 C (97.9 F) 11/26/2024 5:00 PM MANAGER GRAPHIC Respiratory Rate 18 11/26/2024 5:00 PM MANAGER GRAPHIC Oxygen Saturation 99% 11/26/2024 5:00 PM MANAGER GRAPHIC Inhaled Oxygen Concentration - - Weight 104.9 kg (231 lb 3.2 oz) 11/26/2024 5:00 PM MANAGER GRAPHIC Height 180.3 cm (5' 10.98 ) 11/26/2024 5:[address] Body Mass Index 32.26 11/26/2024 5:00 PM MANAGER GRAPHIC Plan of Treatment Health Maintenance Due Date Last Done Comments Hepatitis C Screening 1965 Hepatitis B Screening 1981 Prostate Cancer Screening-PSA 01/01/2024 12/31/2021, 10/20/2018 Covid-19 Vaccine ( season) 2024 09/09/2022, 09/08/2022, 08/16/2021, Additional history exists Influenza Vaccine (#1) 2024 2, 09/28/2022, 08/16/2021, Additional history exists Regular Well Visit/Exam 18-64 12/21/2024 12/21/2023, 12/15/2022, 12/10/2021, Additional history exists Colon Cancer Screening-Colonoscopy 01/02/2025 01/03/2020 Depression Screening 06/20/2025 06/20/2024, 06/20/2024, 02/17/2024, Additional history exists DTaP/Tdap/Td Vaccine (2 - Td or Tdap) 10/05/2028 10/05/2018 Colon Cancer Screening-CT Colonography Discontinued 01/03/2020 Colon Cancer Screening-DNA Stool Discontinued 01/03/2020 Colon Cancer Screening-FIT Discontinued 01/03/2020 Colon Cancer Screening-Sigmoidoscopy Discontinued 01/03/2020 Zoster Vaccine Completed 03/14/2021, 10/01/2020 Pneumococcal vaccine <65 Aged Out No longer eligible based on patient's age to complete this topic Procedures Procedure Name Priority Date/Time Associated Diagnosis Comments PSA SCREEN Routine 12/31/2021 8:09 AM MANAGER GRAPHIC COLONOSCOPY Routine 01/03/2020 from Last 3 Months or Most Recently Relevant to Health Maintenance Results * PSA screen (12/31/2021 8:09 AM MANAGER GRAPHIC) [facility] PSA 1.3 0.0 - 4.0 ng/mL [facility] - Comment: Sergio ECLIA methodology. According to the [place] [employer], Serum PSA should decrease and remain at undetectable levels after radical prostatectomy. The AUA defines biochemical recurrence as an initial PSA value 0.2 ng/mL or greater followed by a subsequent confirmatory PSA value 0.2 ng/mL or greater. Values obtained with different assay methods or kits cannot be used interchangeably. Results cannot be interpreted as absolute evidence of the presence or absence of malignant disease. 12/31/2021 8:09 AM MANAGER GRAPHIC 12/31/2021 [facility] 01/01/2022 4:11 PM MANAGER GRAPHIC Performed at: [address] [place], [place] [id number] [place], [place] [id number] Schedule Planning Manager: Gerardo Lundberg PhD, Phone: [phone] Tamiko RAMSEY LAB BLOOD ORDERABLES Final Result [facility] - 01 * Colonoscopy (01/03/2020) Anatomical Region Laterality Modality Other Narrative 01/03/2020 Dr. Emilio Espinal's in [place]. Negative, but plan to repeat in 5 years. Historical Provider MD ENDOSCOPY PROCEDURES Hetal l Result from Last 3 Months or Most Recently Relevant to Health Maintenance Insurance [employer] [facility] [employer] Care Teams Handy Worker Relationship Specialty Start Date End Date Tamiko Solitario PA [address] [address] PCP - General Internal Medicine 02/01/19
--- OUTSIDE RECORDS SUMMARY | 2024-12-14 11:01 | XMS_ITS | Continuity of Care Document ---
Author Organization [facility] Address [address] [place] [address] Phone Care Team Providers Care Towel Rolling Machine Operator Name Role Phone Abad De La Fuente MD Unavailable Unavailable Advance Directives Directive Yes / No Effective Date File Name No Information Encounters Encounter Description Practice Location Reason(s) For Visit Diagnoses Date Provider Providers Copied on Encounter [facility], [address], [place], [place], [id number], tel:[phone] [facility] No Information 2 Sudhakar Melgoza. [address], [place], [place], [id number] , [place]. tel:[phone] Referring Provider: Rah Asif, [address] [place] [address], [place], [address]. tel:[phone] Family History Family Member Type Diagnosis Age At Onset No Information Payers Payer name Insurance type Covered green party ID Authoriza tion(s) No Information Social History Type Description Quantity Date Captured Comments Sex Male Smoking Status No Information Chief Complaint And Reason For Visit No Information Reason For Referral Reason For Referral No Information History Of Present Illness Encounter Date Complaint History Of Prese nt Illness No Information Functional Status Date Functional Assessmen t No Information Instructions Date Instruction Additional Infor mation No Information Assessments Type Assessment Date No Information Patient Care Teams Name Effective Dates (start - stop) Status Members No Information
--- OUTSIDE RECORDS SUMMARY | 2024-12-14 11:01 | XMS_ITS | Clinical Summary ---
Author Organization [facility] Address [address] [place] [address] [address] Phone Care Team Providers Care Coal Inspector Name Role Phone Tamiko Solitario PAC Primary Care Provider [phone]- [phone] Social History Tobacco Use Types Packs/Day Years Used Date Smoking Tobacco: Never Assessed Sex and Gender Information Value Date Recorded Sex Assigned at Not on file Legal Sex Male 12:39 AM CDT Gender Identity Not on file Sexual Orientation Not on file Plan of Treatment Health Maintenance Due Date Last Done Comments Hepatitis C Virus (HCV) Screening 1965 TdaP Immunization 1963 Cologuard 2013 Immunochemical Fecal Occult Blood 2013 Pneumococcal Immunization (5 0+ years) (1 of 1 - PCV) 2013 Zoster Immunization (1 of 2) 2013 PSA Discussion 2018 Influenza Immunization (#1) 2024 SARS-COV-2 Immunization (1 - 2023- season) 2024 Colonoscopy 01/02/2025 01/03/2020 Colorectal Cancer Screening 01/02/2025 Respiratory Syncytial Virus (RSV) Immunization (Adult) (1 - 1-dose 75+ series) 2038 01/03/2020 Hepatitis B Immunization Aged Out No longer eligible based on patient's age to complete this topic Meningococcal Immunization (ACWY) Aged Out No longer eligible based on patient's age to complete this topic Pneumococcal Immunization Combined Aged Out No longer eligible based on patient's age to complete this topic Rotavirus Immunization Aged Out No lo nger eligible based on patient's age to complete this topic Procedures Procedure Name Priority Date/Time Associated Diagnosis Comments COLONOSCOPY Routine 01/03/2020 from Last 3 Months or Most Recently Relevant to Health Maintenance Results * COLONOSCOPY (01/03/2020) Nabeel Jhaveri DO PROCEDURE/MINOR SURGICAL ORDERA BLES Final Result from Last 3 Months or Most Recently Relevant to Health Maintenance Care Teams Coal Inspector Relationship Specialty Start Date End Date Tamiko Solitario, PAC PCP - General Physician Stope Miner 01/09/20
--- OUTSIDE RECORDS SUMMARY | 2024-12-14 11:01 | XMS_ITS | Referral Summary ---
Author Organization [facility] [address] [facility] Address [address] [place] [address] Care Team Providers Care Consulting Services Manager Name Role Phone Tamiko Solitario Primary Care Provider [phone]- [phone] Encounters Date Type Department Care Team Description 11/26/2024 4:30 PM DOCUMENTATION IMPROVEMENT SPECIALIST Office Visit [facility] at [address] [address] Jermaine Causey NP Acute maxillary sinusitis, recurrence not specified (Primary Dx); Acute cough from Last 3 Months Allergies No known active allergies Medications fexofenadine (ZANE) 180 mg tablet 1 tablet (180 mg [...] nostril daily 1 each 3 Active omega 3-fka-qaw-fish oil 1,000 mg (120 mg-180 mg) capsule Active glucosam-navid- tnd8-M-stut-melanie sw 750 mg-644 mg- 30 mg-1 mg tablet Take by mouth Active calcium bimh-R1-fmqcju ium glo 133 mg calcium -133 unit-67 [...] THE MORNING 90 tablet 1 4 Active [place] Thyroid 60 mg tablet TAKE 1 TABLET [...] testosterone Assessment & Plan (12/31/2023 3:04 PM DOCUMENTATION IMPROVEMENT SPECIALIST): Patient has elevated hemoglobin. Check iron indices. [...] maintain. Assessment & Plan (12/31/2023 3:02 PM DOCUMENTATION IMPROVEMENT SPECIALIST): Discussed the patient's BMI. The BMI is [...] screenings. Assessment & Plan (12/31/2023 2:58 PM DOCUMENTATION IMPROVEMENT SPECIALIST): Encouraged healthy lifestyle, good nutrition and exercise. Encouraged Calcium and Vitamin D and weight bearing exercise for bone health. Reviewed immunizations Reviewed age appropirate screenings. Assessment & Plan (12/15/2022 9:24 AM DOCUMENTATION IMPROVEMENT SPECIALIST): Encouraged healthy lifestyle, good nutrition and exercise. Encouraged Calcium and Vitamin D and weight bearing exercise for bone health. Reviewed immunizations Reviewed age appropirate screenings. Assessment & Plan (12/10/2021 6:28 PM DOCUMENTATION IMPROVEMENT SPECIALIST): Encouraged healthy lifestyle, good nutrition and exercise. [...] re-evaluate Assessment & Plan (12/15/2022 9:23 AM DOCUMENTATION IMPROVEMENT SPECIALIST): Probably multifactorial. Check labs and followup to re-evaluate Assessment & Plan (12/10/2021 6:26 PM DOCUMENTATION IMPROVEMENT SPECIALIST): Probably multifactorial. Check labs and followup to re-evaluate Assessment & Plan (06/04/2021 8:40 AM CDT): Probably multifactorial. Check labs and followup to re-evaluate Mixed hyperlipidemia 06/04/2021 Assessment & Plan (06/20/2024 5:27 PM CDT): Encouraged patient to follow low fat/low chol diet like the Mediterranean diet. Increase good fats in the diet. Increase exercise. Monitor labs as needed. Assessment & Plan (12/31/2023 2:59 PM DOCUMENTATION IMPROVEMENT SPECIALIST): Encouraged patient to follow low fat/low chol diet like the Mediterranean diet. Increase good fats in the diet. Increase exercise. Monitor labs as needed. Assessment & Plan (12/15/2022 9:23 AM DOCUMENTATION IMPROVEMENT SPECIALIST): Encouraged patient to follow low fat/low chol diet like the Mediterranean diet. Increase good fats in the diet. Increase exercise. Monitor labs as needed. Assessment & Plan (12/10/2021 6:26 PM DOCUMENTATION IMPROVEMENT SPECIALIST): Encouraged patient to follow fat/low chol diet [...] as he prefers to see Dr. Erik selby at [facility]. Assessment & Plan (07/07/2019 10:26 AM CDT): Pt has made contact with Dr. Jhaveri again for followup colonoscopy. He plans to repeat in the new year. Assessment & Plan (05/22/2019 8:21 AM CDT): Refer back to Dr. Jhaveri for repeat colonoscopy Seasonal allergies 04/06/2019 Assessment & Plan (06/20/2024 8:58 AM CDT): Continue allergy regimen with Zane albuterol and Flonase Assessment & Plan (12/31/2023 3:01 PM DOCUMENTATION IMPROVEMENT SPECIALIST): Continue with allergy regimen Assessment & Plan (06/04/2021 6:42 AM CDT): Stable with current otc regimen Assessment & Plan (12/01/2020 8:27 AM DOCUMENTATION IMPROVEMENT SPECIALIST): Continue otc prn Assessment & Plan (07/07/2019 [...] & Plan (06/20/2024 5:27 PM CDT): Continue [place] 60 mg. Monitor labs. Assessment & Plan (12/31/2023 2:59 PM DOCUMENTATION IMPROVEMENT SPECIALIST): Continue levothyroxine. Monitor labs. Assessment & Plan (06/15/2023 10:22 PM CDT): Continue levothyroxine. Monitor labs. Assessment & Plan (12/15/2022 9:23 AM DOCUMENTATION IMPROVEMENT SPECIALIST): Continue levothyroxine. Monitor labs. Assessment & Plan (12/10/2021 6:23 PM DOCUMENTATION IMPROVEMENT SPECIALIST): Continue levothyroxine. Monitor labs. Assessment & Plan (06/04/2021 6:41 AM CDT): Continue levothyroxine. Monitor labs. Assessment & Plan (12/01/2020 8:27 AM DOCUMENTATION IMPROVEMENT SPECIALIST): Check labs. Continue [place] Assessment & Plan (04/28/2020 8:30 AM CDT): Due to check labs. Continue replacement Assessment & Plan (11/26/2019 9:13 AM DOCUMENTATION IMPROVEMENT SPECIALIST): Continue replacement Assessment & Plan (07/07/2019 10:25 AM CDT): Stable. Continue replacement Assessment & Plan (05/22/2019 8:11 AM CDT): Continue with the [place]. Check the labs prn Hypogonadism in male 07/03/2018 Assessment & Plan (06/20/2024 8:58 AM CDT): Continue with urology for testosterone injections Assessment & Plan (12/31/2023 2:59 PM DOCUMENTATION IMPROVEMENT SPECIALIST): Continue testosterone supplement per Urology Assessment & Plan (12/15/2022 9:23 AM DOCUMENTATION IMPROVEMENT SPECIALIST): Continue per Urology for management of his hypogonadism and testosterone replacement Assessment & Plan (12/10/2021 6:23 PM DOCUMENTATION IMPROVEMENT SPECIALIST): Continue Testosterone replacement managed by Urology Assessment & Plan (06/04/2021 6:41 AM CDT): Continue testosterone injections per Urology Assessment & Plan (12/01/2020 10:32 AM DOCUMENTATION IMPROVEMENT SPECIALIST): Managed by Urology Assessment & Plan (04/28/2020 8:30 AM CDT): Managed by Urology Assessment & Plan (11/26/2019 9:12 AM DOCUMENTATION IMPROVEMENT SPECIALIST): Continue the replacement Assessment & Plan (07/07/2019 [...] important Assessment & Plan (12/31/2023 3:02 PM DOCUMENTATION IMPROVEMENT SPECIALIST): Stable with Wellbutrin and Lexapro Assessment & [...] time. Assessment & Plan (12/15/2022 9:23 AM DOCUMENTATION IMPROVEMENT SPECIALIST): Continue Wellbutrin and Lexapro Assessment & Plan (12/10/2021 6:22 PM DOCUMENTATION IMPROVEMENT SPECIALIST): Patient is having increased depression sxs. He denies any suicidal or homocidal thoughts. Continue LExapro 20 Increase WellbutrinXL 300mg He is to call if he notes increase in sxs or if his sxs don't respond to the dose increase. Assessment & Plan (06/04/2021 6:42 AM CDT): Stable with wellbutrin and lexapro Assessment & Plan (12/01/2020 8:27 AM DOCUMENTATION IMPROVEMENT SPECIALIST): Continue lexapro and Wellbutrin Assessment & Plan [...] understanding. Assessment & Plan (11/26/2019 9:18 AM DOCUMENTATION IMPROVEMENT SPECIALIST): Stable with the Lexapro. Assessment & Plan [...] with the plan BMI 32.0-32.9,adult 06/15/2023 02/17/20 24 Assessment & Plan (12/31/2023 3:02 PM DOCUMENTATION IMPROVEMENT SPECIALIST): Discussed the patient's BMI. The BMI is [...] amounts of the triamcinolone with Lamisil available irxw-wbu-wzjcegr to use in the area until resolved. Stressed the importance of keeping the area clean and dry may even use a powder if needed. Call if symptoms worsen or do not resolve BMI 31.0-31.9,adult 12/15/2022 06/20/20 Assessment & Plan (02/17/2024 2:56 PM CDT): Weight/BMI is in healthy range. Continue healthy lifestyle to maintain. Assessment & Plan (12/15/2022 8:31 AM DOCUMENTATION IMPROVEMENT SPECIALIST): Discussed the patient's BMI. The BMI is above average. BMI management plan is completed. BMI Follow-up includes: nutrition counseling, exercise counseling and education provided. Obesity (BMI 30-39.9) 12/10/20212022 Assessment & Plan (12/15/2022 9:24 AM DOCUMENTATION IMPROVEMENT SPECIALIST): Discussed the patient's BMI. The BMI is above average. BMI management plan is completed. BMI Follow-up includes: nutrition counseling, exercise counseling and education provided. Assessment & Plan (12/10/2021 8:11 AM DOCUMENTATION IMPROVEMENT SPECIALIST): Obesity is unchanged. Discussed the patient's BMI. The BMI is above average. BMI management plan is completed. BMI Follow-up includes: nutrition counseling, exercise counseling and education provided. BMI 33.0-33.9,adult 12/10/2021 12/15/19 Assessment & Plan (12/10/2021 8:12 AM DOCUMENTATION IMPROVEMENT SPECIALIST): Obesity is unchanged. Discussed the patient's BMI. The BMI is above average. BMI management plan is completed. BMI Follow-up includes: nutrition counseling, exercise counseling and education provided. Prostate cancer screening 12/10/2021 Assessment & Plan (12/10/2021 6:26 PM DOCUMENTATION IMPROVEMENT SPECIALIST): Check labs Arthralgia 12/10/2021 06/20/2024 Assessment & Plan (12/10/2021 6:27 PM DOCUMENTATION IMPROVEMENT SPECIALIST): This is a significant, separately identifiable problem that was evaluated and managed on the same day as the wellness exam Patient is noting increased joint pain. Mother and sister both have RA. Will check labs and determine followup pending results. Acute non-recurrent frontal sinusitis 12/10/2021 12/15/2022 Assessment & Plan (12/10/2021 6:29 PM DOCUMENTATION IMPROVEMENT SPECIALIST): This is a significant, separately identifiable problem [...] 06/15/2023 Assessment & Plan (12/15/2022 9:24 AM DOCUMENTATION IMPROVEMENT SPECIALIST): Check labs Assessment & Plan (12/10/2021 6:26 PM DOCUMENTATION IMPROVEMENT SPECIALIST): Check labs Assessment & Plan (06/04/2021 8:39 AM CDT): Check labs BMI 34.0-34.9,adult 12/01/2020 06/04/20 21 Assessment & Plan (12/01/2020 8:03 AM DOCUMENTATION IMPROVEMENT SPECIALIST): Obesity is unchanged. Discussed the patient's BMI. The BMI is above average. BMI management plan is completed. BMI Follow-up includes: nutrition counseling, exercise counseling and education provided. Obesity (BMI 30-39.9) 12/01/20202020 Assessment & Plan (12/01/2020 8:03 AM DOCUMENTATION IMPROVEMENT SPECIALIST): Obesity is unchanged. Discussed the patient's BMI. The BMI is above average. BMI management plan is completed. BMI Follow-up includes: nutrition counseling, exercise counseling and education provided. Annual physical exam 11/28/2020 021 Assessment & Plan (12/01/2020 8:28 AM DOCUMENTATION IMPROVEMENT SPECIALIST): Encouraged healthy lifestyle, good nutrition and exercise. [...] workup Elevated BP without diagnosis of hypertension 11/26/19 20 12/31/2023 Assessment & Plan (12/10/2021 6:26 PM DOCUMENTATION IMPROVEMENT SPECIALIST): Bp is elevated today but he is on cold medication. Will have him start the Augmentin and stop all D products. He is to take his bp at work in 1 week to determine control. Assessment & Plan (12/01/2020 8:27 AM DOCUMENTATION IMPROVEMENT SPECIALIST): Stable without medication Assessment & Plan (11/26/2019 9:14 AM DOCUMENTATION IMPROVEMENT SPECIALIST): Pt to call with readings to see [...] provided. Assessment & Plan (11/26/2019 9:13 AM DOCUMENTATION IMPROVEMENT SPECIALIST): Obesity is unchanged. Discussed the patient's BMI. [...] Follow-up includes: Discussed diet and exercising counseling. Immunizations Immunization Administration Dates Next Due Influenza, Quadrivalent, Lexis l Culture-based MDCK, Preservative Free, Antibiotic Free, Intramuscular 07/28/2018 Influenza, Quadrivalent, Spl it, Preservative Free, Intramuscular 09/28/2022,08/16/2021,07/31/2020,08/08,06/20/2017,06/20/2017,06/17/2017 Influenza, Trivalent, IM (MDV) 08/24/2018,2013 Influenza, Unspecified 10/24/2023(Deferr ed: Patient Refused),10/24/2023(Deferred: Patient Refused),10/24/2023(Deferred: Patient Refused),11/24/2022(Deferred: Patient Refused),09/29/2022,08/16/2021, 020,08/08/2019 Pfizer SARS-CoV-2 Monovalent Vaccination (12+ Yrs) PURPLE 09/09/2022,08/16/2021,01/21/2021,11/22 Tdap 10/05/2018 ZOSTER Recombinant 03/14/2021,10/01/2020 Social History Tobacco Use Types Packs/Day Years [...] on file Legal Sex Male 8:44 PM DOCUMENTATION IMPROVEMENT SPECIALIST Gender Identity Male 08/04/2021 1:13 PM CDT Sexual Orientation Not on file 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3 cm (5' 10.98 ) 11/26/2024 5:[address] Body Mass Index 32.26 11/26/2024 5:00 PM DOCUMENTATION IMPROVEMENT SPECIALIST Plan of Treatment Not on file Procedures Procedure Name Priority Date/Time Associated Diagnosis Comments PSA SCREEN Routine 12/31/2021 8:09 AM DOCUMENTATION IMPROVEMENT SPECIALIST COLONOSCOPY Routine 01/03/2020 from Last 3 Months or Most Recently Relevant to Health Maintenance Results * PSA screen (12/31/2021 8:09 AM DOCUMENTATION IMPROVEMENT SPECIALIST) PSA 1.3 0.0 - 4.0 ng/mL [facility] - 01 Comment: Sergio ECLIA methodology. According to the [place] [employer], Serum PSA should decrease and [...] absence of malignant disease. 12/31/2021 8:09 AM DOCUMENTATION IMPROVEMENT SPECIALIST 12/31/2021 Narrative [facility] - 01/01/2022 4:11 PM DOCUMENTATION IMPROVEMENT SPECIALIST Performed at: [facility] [id number] Government Services Professional: Gerardo Lundberg PhD, Phone: [phone] Tamiko RAMSEY LAB BLOOD ORDERABLES Final Result [facility] - 01 * Colonoscopy (01/03/2020) Anatomical Region Laterality Modality Other Narrative 01/03/2020 Dr. Emilio Espinal's in [place]. Negative, but plan to repeat in 5 years. Historical Provider MD ENDOSCOPY PROCEDURES Hetal l Result from Last 3 Months or Most Recently Relevant to Health Maintenance Insurance [facility] Care Teams Consulting Services Manager Relationship Specialty Start Date End Date Tamiko Solitario PA [address] [place] [id number] PCP - General Internal Medicine 02/01/19
--- NOTE | 2024-12-14 13:04 | ED_ITS ---
HPI - General Adult General Chief complaint: Urogenital-Male <Di Villar PA-C - Last Filed: 12/14/24 13:10> Stated complaint: L. flank pain, hx kidney stones <Di Villar PA-C - Last Filed: 12/14/24 13:10> Time Seen by Provider: 12/14/24 13:04 <Di Villar PA-C - Last Filed: 12/14/24 13:10> Focused HPI: Patient is a 59-year-old male who presents the ED with report left lower abdominal pain. Patient reports pain began around 4am this morning, has been progressively worsening. history of multiple previous kidney stones which have required lithotripsy in the past. Sees Dr. Garcia. States pain today feels similar. Tried taking hydrocodone home without improvement. Reports N/V. Denies diarrhea, constipation, fevers, difficulty urinating, dysuria, hematuria. Denies testicular pain or swelling. GENERAL: Uncomfortable-appearing, obese with BMI of 33.1, and in mild acute distress d/t pain. HEAD: Normocephalic, atraumatic. CHEST: Clear to auscultation. ?No respiratory distress. HEART: Regular rate and rhythm.? ABD: TTP in LLQ, normoactive BS, no rebound. NEURO: ?Alert and oriented x3. Patient screened in triage and initial orders placed.? ?Additional care and disposition to be based upon?diagnostic testing and treatment. <Di Villar PA-C - Last Filed: 12/14/24 13:10> Source: patient <Di Villar PA-C - Last Filed: 12/14/24 13:10> Mode of arrival: ambulatory <Di Villar PA-C - Last Filed: 12/14/24 13:10> Limitations: no limitations <Di Villar PA-C - Last Filed: 12/14/24 13:10> History of Present Illness HPI narrative: Agree with the HPI as described above. Patient did try and go to his urologist's office today and was referred to the emergency department for testing and imaging. <Bentley Roth MD - Last Filed: 12/14/24 15:50> Related Data Home medications: Home Medications ?Medication ?Instructions ?Recorded ?Confirmed ?Last Taken ?Type escitalopram oxalate 20 mg tablet 20 mg PO DAILY 12/28/19 09/22/22 01/03/20 History fexofenadine 60 mg tablet (Herlinda 60 mg PO Q12H 12/28/19 09/22/22 01/02/20 History Allergy) meloxicam 15 mg tablet 15 mg PO DAILY 12/28/19 09/22/22 01/03/20 History testosterone cypionate 200 mg/mL 200 mg IM WEEKLY 12/28/19 09/22/22 12/20/19 History intramuscular oil thyroid (pork) 60 mg tablet 60 mg PO DAILY 12/28/19 09/22/22 01/03/20 History (Dequincy Thyroid) vitamin B complex (Super B-50 1 cap PO DAILY 12/28/19 09/22/22 01/01/20 History Complex capsule) acetaminophen 500 mg tablet 500 mg PO Q6H PRN 08/11/22 09/22/22 Unknown History (Tylenol Extra Strength) antiarthritic combination no.2 900 mg PO 08/11/22 09/22/22 Unknown History mg tablet (glucosamine-chondroitin) aspirin 325 mg tablet 325 mg PO DAILY 08/11/22 09/22/22 Unknown History bupropion HCl 300 mg 24 hr tablet, 300 mg PO QAM 08/11/22 09/22/22 Unknown History extended release caffeine 200 mg tablet 200 mg PO BID PRN 08/11/22 09/22/22 Unknown History cholecalciferol (vitamin D3) 125 125 mcg PO DAILY 08/11/22 09/22/22 Unknown History mcg (5,000 unit) capsule omega-3 fatty acids-fish oil 360 1 cap PO DAILY 08/11/22 09/22/22 Unknown History mg-1,200 mg capsule (Fish Oil) <Di Villar PA-C - Last Filed: 12/14/24 13:10> Allergies/adverse reactions: Allergies Allergy/AdvReac Type Severity Reaction Status Date / Time levothyroxine sodium (From Allergy Severe Rash Verified 12/14/24 10:28 Levothroid) <iD Villar PA-C - Last Filed: 12/14/24 13:10> Review of Systems 2 Review of Systems: As reviewed above in HPI <Bentley Roth MD - Last Filed: 12/14/24 15:50> PMFSH Past Medical History Medical History: Medical History Tear of left rotator cuff History of kidney stones Thyroid disorder Hypertension Arthritis Asthma Allergies Adenomatous colon polyp Renal lithiasis Depression Hypothyroidism JULES (obstructive sleep apnea) <Di Villar PA-C - Last Filed: 12/14/24 13:10> Surgical History Surgical History: Surgical History History of elbow surgery H/O lithotripsy Hx of colonoscopy <Di Villar PA-C - Last Filed: 12/14/24 13:10> Family History Family History: Family History Mother Cerebrovascular accident Family history of kidney stones Asthma Depression Thyroid disorder Father Family history of diabetes mellitus in first degree relative Family history of primary malignant neoplasm of liver Family history of malignant neoplasm of kidney Diabetes mellitus Hypertension Depression Heart disease Cerebrovascular accident Sibling Depression <Di Villar PA-C - Last Filed: 12/14/24 13:10> Social History Social History: Social History Smoking status: Never smoker Alcohol intake: never Substance use: never Living arrangements: with roommate(s) 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 Mucous membranes moist. NECK: Supple. CHEST: [Clear to auscultation. No respiratory distress.] HEART: [Regular rate and rhythm]. No murmur heard. [Normal peripheral pulses.] ABDOMEN: [Soft, nondistended], [nontender], [No rigidity or guarding] EXTREMITIES: Normal range of motion. [No edema.] SKIN: Warm, dry, no rash. NEURO: [No focal deficits]. Alert and oriented [x3.] PSYCH: [Normal mood and affect.] <Bentley Roth MD - Last Filed: 12/14/24 15:50> Course Vital Signs Vital signs: Vital Signs Temperature 36.6 C 12/14/24 10:31 Pulse Rate 85 12/14/24 10:31 Respiratory Rate 18 12/14/24 10:31 Blood Pressure 176/113 H 12/14/24 10:31 Pulse Oximetry 100 12/14/24 10:31 Oxygen Delivery Room Air 12/14/24 10:31 Temperature 36.6 C 12/14/24 10:31 Pulse Rate 96 12/14/24 14:10 Respiratory Rate 18 12/14/24 14:10 Blood Pressure 163/107 H 12/14/24 15:31 Pulse Oximetry 96 12/14/24 15:31 Oxygen Delivery Room Air 12/14/24 10:31 <Di Villar PA-C - Last Filed: 12/14/24 13:10> Vital Signs Temperature 36.6 C 12/14/24 10:31 Pulse Rate 85 12/14/24 10:31 Respiratory Rate 18 12/14/24 10:31 Blood Pressure 176/113 H 12/14/24 10:31 Pulse Oximetry 100 12/14/24 10:31 Oxygen Delivery Room Air 12/14/24 10:31 Temperature 36.6 C 12/14/24 10:31 Pulse Rate 96 12/14/24 14:10 Respiratory Rate 18 12/14/24 14:10 Blood Pressure 163/107 H 12/14/24 15:31 Pulse Oximetry 96 12/14/24 15:31 Oxygen Delivery Room Air 12/14/24 10:31 <Bentley Roth MD - Last Filed: 12/14/24 15:50> Medical Decision Making MDM Narrative Medical decision making narrative: MSE by LULU in triage. <Di Villar PA-C - Last Filed: 12/14/24 13:10> MSE by LULU in triage. 59-year-old male with history of recurrent nephrolithiasis presenting to the emergency room with chief complaint of left- sided lower quadrant pain radiating towards his groin similar to his previous kidney stone pain. Patient has had previous lithotripsy with his urologist Dr. Garcia. Denies any urinary complaints such as hematuria, dysuria, frequency or difficulty urinating. Patient states this feels very similar to his prior kidney stone. Otherwise well-appearing, not any acute distress, soft nontender nondistended abdomen. Patient has some mild hypertension but no tachycardia, fever or hypoxia. Considerations presently are for nephrolithiasis, obstructing kidney stone, nonobstructing kidney stone, hydroureter, less likely infected stone or other intra-abdominal process such as diverticulitis given left lower quadrant localization. He is otherwise well-appearing. Workup was ordered including a noncontrast CT, blood work and urinalysis. Patient was given p.o. medications and re-evaluated with improvement in his pain control. Workup shows a leukocytosis of 14.3, no signs of infection on the urinalysis. Normal appearing platelets and hemoglobin count. Chemistry panel shows normal electrolytes, normal renal function and glucose. Urinalysis without any signs of infection or blood. CT scan shows bilateral nephrolithiasis with a new 5 mm obstructing stone in the proximal left ureter with mild left hydro and moderate perinephric stranding. Patient was re-evaluated and had of pain scale at 0 presently after oral medications. Patient felt significantly improved. Will reach out to his urologist Dr. Garcia for recommendations regarding the obstructing stone. Spoke with the urologist who also presented at bedside to evaluate the patient. Recommendations for outpatient ESWL given patient's improvement with minimal analgesics and no significant derangements on laboratory assessment. Patient comfortable this plan and was given additional dose of oxycodone here in the emergency department followed by being sent home with oral pain medications and instructions on follow-up as provided by Urology with plan for appointment next Tuesday. Patient was given strict return precautions by both myself and Dr. Garcia and was safe for discharge at this time. <Bentley Roth MD - Last Filed: 12/14/24 15:50> Medical Records Medical records reviewed: Yes I reviewed the external patient's medical records. <Bentley Roth MD - Last Filed: 12/14/24 15:50> Vital Signs Vital Signs: Vital Signs Temperature 36.6 C 12/14/24 10:31 Pulse Rate 85 12/14/24 10:31 Respiratory Rate 18 12/14/24 10:31 Blood Pressure 176/113 H 12/14/24 10:31 Pulse Oximetry 100 12/14/24 10:31 Oxygen Delivery Room Air 12/14/24 10:31 Temperature 36.6 C 12/14/24 10:31 Pulse Rate 96 12/14/24 14:10 Respiratory Rate 18 12/14/24 14:10 Blood Pressure 163/107 H 12/14/24 15:31 Pulse Oximetry 96 12/14/24 15:31 Oxygen Delivery Room Air 12/14/24 10:31 <Di Villar PA-C - Last Filed: 12/14/24 13:10> Vital Signs Temperature 36.6 C 12/14/24 10:31 Pulse Rate 85 12/14/24 10:31 Respiratory Rate 18 12/14/24 10:31 Blood Pressure 176/113 H 12/14/24 10:31 Pulse Oximetry 100 12/14/24 10:31 Oxygen Delivery Room Air 12/14/24 10:31 Temperature 36.6 C 12/14/24 10:31 Pulse Rate 96 12/14/24 14:10 Respiratory Rate 18 12/14/24 14:10 Blood Pressure 163/107 H 12/14/24 15:31 Pulse Oximetry 96 12/14/24 15:31 Oxygen Delivery Room Air 12/14/24 10:31 <Bentley Roth MD - Last Filed: 12/14/24 15:50> Lab Data Lab results reviewed: Yes I reviewed the patient's lab results. <Bentley Roth MD - Last Filed: 12/14/24 15:50> Result diagrams: 12/14/24 13:53 12/14/24 13:53 <Di Villar PA-C - Last Filed: 12/14/24 13:10> Labs: Lab Results 12/14/24 Range/Units 13:53 WBC 14.3 H (4.5-10.0) K/mm3 RBC 5.84 (4.6-6.20) M/mm3 Hgb 17.8 (14.0-18.0) g/dL Hct 52.3 H (42.0-52.0) % MCV 89.6 (80-100) fl MCH 30.5 (26-34) pg MCHC 34.0 (32-36) g/dl RDW 13.1 (11.5-14.5) % Plt Count 272 (150-375) k/mm3 MPV 9.0 (7.4-10.4) fl Immature Gran % (Auto) 0.3 (0-0.5) % Neut % (Auto) 83.1 H (45.5-73.1) % Lymph % (Auto) 8.1 L (18.3-44.2) % [place] % (Auto) 7.4 (2.6-8.5) % Eos % (Auto) 0.8 (0-4.4) % Baso % (Auto) 0.3 (0.2-1.2) % Lymph # (Auto) 1.15 (0.9-3.2) K/mm3 [place] # (Auto) 1.1 H (0.1-0.6) K/mm3 Eos # (Auto) 0.1 (0-0.3) K/mm3 Baso # (Auto) 0.0 (0.0-0.1) K/mm3 Abs Immat Gran (auto) 0.04 H (0.00-0.031) K/mm3 Absolute Neuts (auto) 11.9 H (1.3-6.7) K/mm3 Absolute Nucleated RBC 0.000 (0.0-0.012) K/mm3 Nucleated RBC % 0.0 (0.0-0.2) % Sodium 137 (137-145) mmol/L Potassium 4.3 (3.4-5.0) mmol/L Chloride 101 (98-107) mmol/L Carbon Dioxide 25 (22-30) mmol/L Anion Gap 11 (4-12) mmol/L BUN 17 (9-20) mg/dL Creatinine 1.14 (0.7-1.3) mg/dL Estim Creat Clear Calc 73 ml/min Estimated GFR > 60 (59 - ) Glucose 118 H (65-110) mg/dL Calcium 9.9 (8.4-10.2) mg/dL Urine Color Yellow (Yellow) Urine Appearance Clear (Clear) Urine pH 6.5 (5.0-9.0) Ur Specific [place] 1.017 (1.001-1.035) Urine Protein Negative (Negative) mg/dL Urine Glucose (UA) Negative (Negative) mg/dL Urine Ketones Negative (Negative) mg/dL Ur Blood (Man) Negative (Negative) Urine Nitrate Negative (Negative) Urine Bilirubin Negative (Negative) Urine Urobilinogen 0.2 (<2.0) mg/dL Leukocyte Esterase Rfl Negative (Negative) CHARAN/UL <Di Villar PA-C - Last Filed: 12/14/24 13:10> Lab Results 12/14/24 Range/Units 13:53 WBC 14.3 H (4.5-10.0) K/mm3 RBC 5.84 (4.6-6.20) M/mm3 Hgb 17.8 (14.0-18.0) g/dL Hct 52.3 H (42.0-52.0) % MCV 89.6 (80-100) fl MCH 30.5 (26-34) pg MCHC 34.0 (32-36) g/dl RDW 13.1 (11.5-14.5) % Plt Count 272 (150-375) k/mm3 MPV 9.0 (7.4-10.4) fl Immature Gran % (Auto) 0.3 (0-0.5) % Neut % (Auto) 83.1 H (45.5-73.1) % Lymph % (Auto) 8.1 L (18.3-44.2) % [place] % (Auto) 7.4 (2.6-8.5) % Eos % (Auto) 0.8 (0-4.4) % Baso % (Auto) 0.3 (0.2-1.2) % Lymph # (Auto) 1.15 (0.9-3.2) K/mm3 [place] # (Auto) 1.1 H (0.1-0.6) K/mm3 Eos # (Auto) 0.1 (0-0.3) K/mm3 Baso # (Auto) 0.0 (0.0-0.1) K/mm3 Abs Immat Gran (auto) 0.04 H (0.00-0.031) K/mm3 Absolute Neuts (auto) 11.9 H (1.3-6.7) K/mm3 Absolute Nucleated RBC 0.000 (0.0-0.012) K/mm3 Nucleated RBC % 0.0 (0.0-0.2) % Sodium 137 (137-145) mmol/L Potassium 4.3 (3.4-5.0) mmol/L Chloride 101 (98-107) mmol/L Carbon Dioxide 25 (22-30) mmol/L Anion Gap 11 (4-12) mmol/L BUN 17 (9-20) mg/dL Creatinine 1.14 (0.7-1.3) mg/dL Estim Creat Clear Calc 73 ml/min Estimated GFR > 60 (59 - ) Glucose 118 H (65-110) mg/dL Calcium 9.9 (8.4-10.2) mg/dL Urine Color Yellow (Yellow) Urine Appearance Clear (Clear) Urine pH 6.5 (5.0-9.0) Ur Specific [place] 1.017 (1.001-1.035) Urine Protein Negative (Negative) mg/dL Urine Glucose (UA) Negative (Negative) mg/dL Urine Ketones Negative (Negative) mg/dL Ur Blood (Man) Negative (Negative) Urine Nitrate Negative (Negative) Urine Bilirubin Negative (Negative) Urine Urobilinogen 0.2 (<2.0) mg/dL Leukocyte Esterase Rfl Negative (Negative) CHARAN/UL <Bentley Roth MD - Last Filed: 12/14/24 15:50> Imaging Data Attestation: I personally reviewed and interpreted this imaging study as follows: < Bentley Roth MD - Last Filed: 12/14/24 15:50> My impression: Impressions Abdomen/Pelvis CT 12/14/24 14:01 IMPRESSION: 1. Bilateral nephrolithiasis with obstructing 5 mm stone at the proximal left ureter with mild left hydronephrosis and moderate perinephric stranding. <Bentley Roth MD - Last Filed: 12/14/24 15:50> Discharge Plan Discharge Clinical Impression: Kidney stone on left side, History of kidney stones <Di Villar PA-C - Last Filed: 12/14/24 13:10> Patient Disposition: Home, Self-Care <NII Hernandez Last Filed: 12/14/24 13:10> Condition: Stable <NII Hernandez Last Filed: 12/14/24 13:10> Instructions: Antibiotic Form, Kidney Stones (ED), Lithotripsy (DC) <NII Hernandez Last Filed: 12/14/24 13:10> Additional Instructions: Please follow-up with Dr. Garcia outpatient for your scheduled lithotripsy next Tuesday. Call the outpatient urology office if you have any worsening symptoms and need to be seen sooner. If you have intractable pain, intractable nausea or other new concerns such as inability to urinate, developing fevers or any other concerns you could always get repeat evaluation in the emergency department at that time. We will send you home with pain medications. <NII Hernandez Last Filed: 12/14/24 13:10> Patient Language: Telugu <NII Hernandez Last Filed: 12/14/24 13:10> Prescriptions: New oxycodone 5 mg tablet 5 mg PO Q4H PRN (Reason: pain) 3 Days Qty: 18 0RF acetaminophen [Tylenol Extra Strength] 500 mg tablet 1,000 mg PO TID PRN (Reason: pain) Qty: 30 0RF ondansetron 4 mg tablet,disintegrating 4 mg PO Q8H PRN (Reason: nausea and vomiting) Qty: 20 0RF No Action bupropion HCl 300 mg tablet extended release 24 hr 300 mg PO QAM acetaminophen [Tylenol Extra Strength] 500 mg tablet 500 mg PO Q6H PRN cholecalciferol (vitamin D3) 125 mcg (5,000 unit) capsule 125 mcg PO DAILY omega-3 fatty acids-fish oil [Fish Oil] 360-1,200 mg capsule 1 cap PO DAILY glucosamine-chondroitin 900 mg tablet PO aspirin 325 mg tablet 325 mg PO DAILY caffeine 200 mg tablet 200 mg PO BID PRN fexofenadine [Herlinda Allergy] 60 mg Tablet 60 mg PO Q12H meloxicam 15 mg tablet 15 mg PO DAILY testosterone cypionate 200 mg/mL oil 200 mg IM WEEKLY vitamin B complex [Super B-50 Complex] Capsule 1 cap PO DAILY escitalopram oxalate 20 mg tablet 20 mg PO DAILY thyroid (pork) [Dequincy Thyroid] 60 mg tablet 60 mg PO DAILY <Di Villar PA-C - Last Filed: 12/14/24 13:10> Follow-up/Referrals: Nic Garcia MD [Physician] - 1 Week (Lithotripsy outpatient. Left- sided kidney stone.) Altaf,ROXY Morrison [Primary Care Provider] - <Di Villar PA-C - Last Filed: 12/14/24 13:10> Time of Disposition: 15:50 <Di Villar PA-C - Last Filed: 12/14/24 13:10> 15:50 <Bentley Roth MD - Last Filed: 12/14/24 15:50>
--- OUTSIDE RECORDS SUMMARY | 2024-12-14 13:25 | XMS_ITS | Clinical Summary ---
Author Organization [facility] Address [address] [address] Phone Care Team Providers Care Employment Law Specialist Name Role Phone Taimko Solitario PAC Primary Care Provider [phone] Social History Tobacco Use Types Packs/Day Years [...] Recently Relevant to Health Maintenance Care Teams Employment Law Specialist Relationship Specialty Start Date End Date Tamiko Solitario, PAC PCP - General Physician Pool Player 01/09/20
--- OUTSIDE RECORDS SUMMARY | 2024-12-14 13:25 | XMS_ITS | Referral Summary ---
Author Organization [facility] [place] [facility] [facility] Address [address] [place] [address] Care Team Providers Care Manufacturing Technology Professor Name Role Phone Tamiko Solitario Primary Care Provider [phone]- [phone] Encounters Date Type Department Care Team Description 11/26/2024 4:30 PM BASKETBALL COMMENTATOR Office Visit [facility] [address] [address] Jermaine Causey NP Acute maxillary [...] nostril daily 1 each 3 Active omega 6-vsc-dqy-fish oil 1,000 mg (120 mg-180 mg) capsule Active glucosam-navid- tra4-D-xzcb-melanie sw 750 mg-644 mg- 30 mg-1 mg tablet Take by mouth Active calcium nyso-V1-wvlrse ium glo 133 mg calcium -133 unit-67 [...] THE MORNING 90 tablet 1 4 Active [place] Thyroid 60 mg tablet TAKE 1 TABLET [...] testosterone Assessment & Plan (12/31/2023 3:04 PM BASKETBALL COMMENTATOR): Patient has elevated hemoglobin. Check iron indices. [...] maintain. Assessment & Plan (12/31/2023 3:02 PM BASKETBALL COMMENTATOR): Discussed the patient's BMI. The BMI is [...] screenings. Assessment & Plan (12/31/2023 2:58 PM BASKETBALL COMMENTATOR): Encouraged healthy lifestyle, good nutrition and exercise. Encouraged Calcium and Vitamin D and weight bearing exercise for bone health. Reviewed immunizations Reviewed age appropirate screenings. Assessment & Plan (12/15/2022 9:24 AM BASKETBALL COMMENTATOR): Encouraged healthy lifestyle, good nutrition and exercise. Encouraged Calcium and Vitamin D and weight bearing exercise for bone health. Reviewed immunizations Reviewed age appropirate screenings. Assessment & Plan (12/10/2021 6:28 PM BASKETBALL COMMENTATOR): Encouraged healthy lifestyle, good nutrition and exercise. [...] re-evaluate Assessment & Plan (12/15/2022 9:23 AM BASKETBALL COMMENTATOR): Probably multifactorial. Check labs and followup to re-evaluate Assessment & Plan (12/10/2021 6:26 PM BASKETBALL COMMENTATOR): Probably multifactorial. Check labs and followup to re-evaluate Assessment & Plan (06/04/2021 8:40 AM CDT): Probably multifactorial. Check labs and followup to re-evaluate Mixed hyperlipidemia 06/04/2021 Assessment & Plan (06/20/2024 5:27 PM CDT): Encouraged patient to follow low fat/low chol diet like the Mediterranean diet. Increase good fats in the diet. Increase exercise. Monitor labs as needed. Assessment & Plan (12/31/2023 2:59 PM BASKETBALL COMMENTATOR): Encouraged patient to follow low fat/low chol diet like the Mediterranean diet. Increase good fats in the diet. Increase exercise. Monitor labs as needed. Assessment & Plan (12/15/2022 9:23 AM BASKETBALL COMMENTATOR): Encouraged patient to follow low fat/low chol diet like the Mediterranean diet. Increase good fats in the diet. Increase exercise. Monitor labs as needed. Assessment & Plan (12/10/2021 6:26 PM BASKETBALL COMMENTATOR): Encouraged patient to follow fat/low chol diet [...] prefers to see Dr. Erik selby at [facility]. Assessment & Plan (07/07/2019 10:26 AM CDT): [...] Flonase Assessment & Plan (12/31/2023 3:01 PM BASKETBALL COMMENTATOR): Continue with allergy regimen Assessment & Plan (06/04/2021 6:42 AM CDT): Stable with current otc regimen Assessment & Plan (12/01/2020 8:27 AM BASKETBALL COMMENTATOR): Continue otc prn Assessment & Plan (07/07/2019 [...] & Plan (06/20/2024 5:27 PM CDT): Continue [place] 60 mg. Monitor labs. Assessment & Plan (12/31/2023 2:59 PM BASKETBALL COMMENTATOR): Continue levothyroxine. Monitor labs. Assessment & Plan (06/15/2023 10:22 PM CDT): Continue levothyroxine. Monitor labs. Assessment & Plan (12/15/2022 9:23 AM BASKETBALL COMMENTATOR): Continue levothyroxine. Monitor labs. Assessment & Plan (12/10/2021 6:23 PM BASKETBALL COMMENTATOR): Continue levothyroxine. Monitor labs. Assessment & Plan (06/04/2021 6:41 AM CDT): Continue levothyroxine. Monitor labs. Assessment & Plan (12/01/2020 8:27 AM BASKETBALL COMMENTATOR): Check labs. Continue [place] Assessment & Plan (04/28/2020 8:30 AM CDT): Due to check labs. Continue replacement Assessment & Plan (11/26/2019 9:13 AM BASKETBALL COMMENTATOR): Continue replacement Assessment & Plan (07/07/2019 10:25 AM CDT): Stable. Continue replacement Assessment & Plan (05/22/2019 8:11 AM CDT): Continue with the [place]. Check the labs prn Hypogonadism in male 07/03/2018 Assessment & Plan (06/20/2024 8:58 AM CDT): Continue with urology for testosterone injections Assessment & Plan (12/31/2023 2:59 PM BASKETBALL COMMENTATOR): Continue testosterone supplement per Urology Assessment & Plan (12/15/2022 9:23 AM BASKETBALL COMMENTATOR): Continue per Urology for management of his hypogonadism and testosterone replacement Assessment & Plan (12/10/2021 6:23 PM BASKETBALL COMMENTATOR): Continue Testosterone replacement managed by Urology Assessment & Plan (06/04/2021 6:41 AM CDT): Continue testosterone injections per Urology Assessment & Plan (12/01/2020 10:32 AM BASKETBALL COMMENTATOR): Managed by Urology Assessment & Plan (04/28/2020 8:30 AM CDT): Managed by Urology Assessment & Plan (11/26/2019 9:12 AM BASKETBALL COMMENTATOR): Continue the replacement Assessment & Plan (07/07/2019 [...] important Assessment & Plan (12/31/2023 3:02 PM BASKETBALL COMMENTATOR): Stable with Wellbutrin and Lexapro Assessment & [...] time. Assessment & Plan (12/15/2022 9:23 AM BASKETBALL COMMENTATOR): Continue Wellbutrin and Lexapro Assessment & Plan (12/10/2021 6:22 PM BASKETBALL COMMENTATOR): Patient is having increased depression sxs. He denies any suicidal or homocidal thoughts. Continue LExapro 20 Increase WellbutrinXL 300mg He is to call if he notes increase in sxs or if his sxs don't respond to the dose increase. Assessment & Plan (06/04/2021 6:42 AM CDT): Stable with wellbutrin and lexapro Assessment & Plan (12/01/2020 8:27 AM BASKETBALL COMMENTATOR): Continue lexapro and Wellbutrin Assessment & Plan [...] understanding. Assessment & Plan (11/26/2019 9:18 AM BASKETBALL COMMENTATOR): Stable with the Lexapro. Assessment & Plan [...] 24 Assessment & Plan (12/31/2023 3:02 PM BASKETBALL COMMENTATOR): Discussed the patient's BMI. The BMI is [...] amounts of the triamcinolone with Lamisil available [id number]-[id number] to use in the area until resolved. Stressed the importance of keeping the area clean and dry may even use a powder if needed. Call if symptoms worsen or do not resolve BMI 31.0-31.9,adult 12/15/2022 06/20/20 Assessment & Plan (02/17/2024 2:56 PM CDT): Weight/BMI is in healthy range. Continue healthy lifestyle to maintain. Assessment & Plan (12/15/2022 8:31 AM BASKETBALL COMMENTATOR): Discussed the patient's BMI. The BMI is above average. BMI management plan is completed. BMI Follow-up includes: nutrition counseling, exercise counseling and education provided. Obesity (BMI 30-39.9) 12/10/20212022 Assessment & Plan (12/15/2022 9:24 AM BASKETBALL COMMENTATOR): Discussed the patient's BMI. The BMI is above average. BMI management plan is completed. BMI Follow-up includes: nutrition counseling, exercise counseling and education provided. Assessment & Plan (12/10/2021 8:11 AM BASKETBALL COMMENTATOR): Obesity is unchanged. Discussed the patient's BMI. The BMI is above average. BMI management plan is completed. BMI Follow-up includes: nutrition counseling, exercise counseling and education provided. BMI 33.0-33.9,adult 12/10/2021 12/15/19 Assessment & Plan (12/10/2021 8:12 AM BASKETBALL COMMENTATOR): Obesity is unchanged. Discussed the patient's BMI. The BMI is above average. BMI management plan is completed. BMI Follow-up includes: nutrition counseling, exercise counseling and education provided. Prostate cancer screening 12/10/2021 Assessment & Plan (12/10/2021 6:26 PM BASKETBALL COMMENTATOR): Check labs Arthralgia 12/10/2021 06/20/2024 Assessment & Plan (12/10/2021 6:27 PM BASKETBALL COMMENTATOR): This is a significant, separately identifiable problem that was evaluated and managed on the same day as the wellness exam Patient is noting increased joint pain. Mother and sister both have RA. Will check labs and determine followup pending results. Acute non-recurrent frontal sinusitis 12/10/2021 12/15/2022 Assessment & Plan (12/10/2021 6:29 PM BASKETBALL COMMENTATOR): This is a significant, separately identifiable problem [...] 06/15/2023 Assessment & Plan (12/15/2022 9:24 AM BASKETBALL COMMENTATOR): Check labs Assessment & Plan (12/10/2021 6:26 PM BASKETBALL COMMENTATOR): Check labs Assessment & Plan (06/04/2021 8:39 AM CDT): Check labs BMI 34.0-34.9,adult 12/01/2020 06/04/20 21 Assessment & Plan (12/01/2020 8:03 AM BASKETBALL COMMENTATOR): Obesity is unchanged. Discussed the patient's BMI. The BMI is above average. BMI management plan is completed. BMI Follow-up includes: nutrition counseling, exercise counseling and education provided. Obesity (BMI 30-39.9) 12/01/20202020 Assessment & Plan (12/01/2020 8:03 AM BASKETBALL COMMENTATOR): Obesity is unchanged. Discussed the patient's BMI. The BMI is above average. BMI management plan is completed. BMI Follow-up includes: nutrition counseling, exercise counseling and education provided. Annual physical exam 11/28/2020 021 Assessment & Plan (12/01/2020 8:28 AM BASKETBALL COMMENTATOR): Encouraged healthy lifestyle, good nutrition and exercise. [...] 12/31/2023 Assessment & Plan (12/10/2021 6:26 PM BASKETBALL COMMENTATOR): Bp is elevated today but he is on cold medication. Will have him start the Augmentin and stop all D products. He is to take his bp at work in 1 week to determine control. Assessment & Plan (12/01/2020 8:27 AM BASKETBALL COMMENTATOR): Stable without medication Assessment & Plan (11/26/2019 9:14 AM BASKETBALL COMMENTATOR): Pt to call with readings to see [...] provided. Assessment & Plan (11/26/2019 9:13 AM BASKETBALL COMMENTATOR): Obesity is unchanged. Discussed the patient's BMI. 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 Not on file Not on file Last Filed Vital Signs Vital Sign Reading Time Taken Comments Blood Pressure 145/89 11/26/2024 5:00 PM BASKETBALL COMMENTATOR Pulse 82 11/26/2024 5:00 PM BASKETBALL COMMENTATOR Temperature 36.6 C (97.9 F) 11/26/2024 5:00 PM BASKETBALL COMMENTATOR Respiratory Rate 18 11/26/2024 5:00 PM BASKETBALL COMMENTATOR Oxygen Saturation 99% 11/26/2024 5:00 PM BASKETBALL COMMENTATOR Inhaled Oxygen Concentration - - Weight 104.9 kg (231 lb 3.2 oz) 11/26/2024 5:00 PM BASKETBALL COMMENTATOR Height 180.3 cm (5' 10.98 ) 11/26/2024 5:[address] Body Mass Index 32.26 11/26/2024 5:00 PM BASKETBALL COMMENTATOR Plan of Treatment Not on file Procedures Procedure Name Priority Date/Time Associated Diagnosis Comments PSA SCREEN Routine 12/31/2021 8:09 AM BASKETBALL COMMENTATOR COLONOSCOPY Routine 01/03/2020 from Last 3 Months or Most Recently Relevant to Health Maintenance Results * PSA screen (12/31/2021 8:09 AM BASKETBALL COMMENTATOR) PSA 1.3 0.0 - 4.0 ng/mL [facility] - 01 Comment: Sergio ECLIA methodology. According to the [employer], Serum PSA should decrease and [...] absence of malignant disease. 12/31/2021 8:09 AM BASKETBALL COMMENTATOR 12/31/2021 Narrative [facility] - 01/01/2022 4:11 PM BASKETBALL COMMENTATOR Performed at: [facility] [id number] [address] Commissioner: Gerardo Lundberg PhD, Phone: [phone] Tamiko RAMSEY LAB BLOOD ORDERABLES Final Result [facility] - 01 * Colonoscopy (01/03/2020) Anatomical Region Laterality Modality Other Narrative 01/03/2020 Dr. Emilio Espinal's in [place]. Negative, but plan to repeat in 5 years. Historical Provider MD ENDOSCOPY PROCEDURES Hetal l Result from Last 3 Months or Most Recently Relevant to Health Maintenance [facility] Care Teams Manufacturing Technology Professor Relationship Specialty Start Date End Date Tamiko Solitario PA [address] [place] [address] PCP - General Internal Medicine 02/01/19
--- OUTSIDE RECORDS SUMMARY | 2024-12-14 13:25 | XMS_ITS | Clinical Summary ---
Author Organization [facility] [address] [facility] Address [address] [place] [address] Care Team Providers Care Actuarial Director Name Role Phone Tamiko Solitario Primary Care Provider [phone]- [phone] Allergies No known active allergies Medications fexofenadine [...] nostril daily 1 each 3 Active omega 1-spj-jik-fish oil 1,000 mg (120 mg-180 mg) capsule Active glucosam-navid- rhb9-H-iniv-melanie sw 750 mg-644 mg- 30 mg-1 mg tablet Take by mouth Active calcium eysq-R9-dbapsc ium glo 133 mg calcium -133 unit-67 [...] THE MORNING 90 tablet 1 4 Active Union Thyroid 60 mg tablet TAKE 1 TABLET [...] testosterone Assessment & Plan (12/31/2023 3:04 PM BOX LINING MACHINE OPERATOR): Patient has elevated hemoglobin. Check iron indices. [...] maintain. Assessment & Plan (12/31/2023 3:02 PM BOX LINING MACHINE OPERATOR): Discussed the patient's BMI. The BMI is [...] screenings. Assessment & Plan (12/31/2023 2:58 PM BOX LINING MACHINE OPERATOR): Encouraged healthy lifestyle, good nutrition and exercise. Encouraged Calcium and Vitamin D and weight bearing exercise for bone health. Reviewed immunizations Reviewed age appropirate screenings. Assessment & Plan (12/15/2022 9:24 AM BOX LINING MACHINE OPERATOR): Encouraged healthy lifestyle, good nutrition and exercise. Encouraged Calcium and Vitamin D and weight bearing exercise for bone health. Reviewed immunizations Reviewed age appropirate screenings. Assessment & Plan (12/10/2021 6:28 PM BOX LINING MACHINE OPERATOR): Encouraged healthy lifestyle, good nutrition and exercise. [...] re-evaluate Assessment & Plan (12/15/2022 9:23 AM BOX LINING MACHINE OPERATOR): Probably multifactorial. Check labs and followup to re-evaluate Assessment & Plan (12/10/2021 6:26 PM BOX LINING MACHINE OPERATOR): Probably multifactorial. Check labs and followup to re-evaluate Assessment & Plan (06/04/2021 8:40 AM CDT): Probably multifactorial. Check labs and followup to re-evaluate Mixed hyperlipidemia 06/04/2021 Assessment & Plan (06/20/2024 5:27 PM CDT): Encouraged patient to follow low fat/low chol diet like the Mediterranean diet. Increase good fats in the diet. Increase exercise. Monitor labs as needed. Assessment & Plan (12/31/2023 2:59 PM BOX LINING MACHINE OPERATOR): Encouraged patient to follow low fat/low chol diet like the Mediterranean diet. Increase good fats in the diet. Increase exercise. Monitor labs as needed. Assessment & Plan (12/15/2022 9:23 AM BOX LINING MACHINE OPERATOR): Encouraged patient to follow low fat/low chol diet like the Mediterranean diet. Increase good fats in the diet. Increase exercise. Monitor labs as needed. Assessment & Plan (12/10/2021 6:26 PM BOX LINING MACHINE OPERATOR): Encouraged patient to follow fat/low chol diet [...] prefers to see Dr. Erik billings at [facility]. Assessment & Plan (07/07/2019 10:26 AM CDT): [...] Flonase Assessment & Plan (12/31/2023 3:01 PM BOX LINING MACHINE OPERATOR): Continue with allergy regimen Assessment & Plan (06/04/2021 6:42 AM CDT): Stable with current otc regimen Assessment & Plan (12/01/2020 8:27 AM BOX LINING MACHINE OPERATOR): Continue otc prn Assessment & Plan (07/07/2019 [...] & Plan (06/20/2024 5:27 PM CDT): Continue Union 60 mg. Monitor labs. Assessment & Plan (12/31/2023 2:59 PM BOX LINING MACHINE OPERATOR): Continue levothyroxine. Monitor labs. Assessment & Plan (06/15/2023 10:22 PM CDT): Continue levothyroxine. Monitor labs. Assessment & Plan (12/15/2022 9:23 AM BOX LINING MACHINE OPERATOR): Continue levothyroxine. Monitor labs. Assessment & Plan (12/10/2021 6:23 PM BOX LINING MACHINE OPERATOR): Continue levothyroxine. Monitor labs. Assessment & Plan (06/04/2021 6:41 AM CDT): Continue levothyroxine. Monitor labs. Assessment & Plan (12/01/2020 8:27 AM BOX LINING MACHINE OPERATOR): Check labs. Continue Union Assessment & Plan (04/28/2020 8:30 AM CDT): Due to check labs. Continue replacement Assessment & Plan (11/26/2019 9:13 AM BOX LINING MACHINE OPERATOR): Continue replacement Assessment & Plan (07/07/2019 10:25 AM CDT): Stable. Continue replacement Assessment & Plan (05/22/2019 8:11 AM CDT): Continue with the Union. Check the labs prn Hypogonadism in male 07/03/2018 Assessment & Plan (06/20/2024 8:58 AM CDT): Continue with urology for testosterone injections Assessment & Plan (12/31/2023 2:59 PM BOX LINING MACHINE OPERATOR): Continue testosterone supplement per Urology Assessment & Plan (12/15/2022 9:23 AM BOX LINING MACHINE OPERATOR): Continue per Urology for management of his hypogonadism and testosterone replacement Assessment & Plan (12/10/2021 6:23 PM BOX LINING MACHINE OPERATOR): Continue Testosterone replacement managed by Urology Assessment & Plan (06/04/2021 6:41 AM CDT): Continue testosterone injections per Urology Assessment & Plan (12/01/2020 10:32 AM BOX LINING MACHINE OPERATOR): Managed by Urology Assessment & Plan (04/28/2020 8:30 AM CDT): Managed by Urology Assessment & Plan (11/26/2019 9:12 AM BOX LINING MACHINE OPERATOR): Continue the replacement Assessment & Plan (07/07/2019 [...] important Assessment & Plan (12/31/2023 3:02 PM BOX LINING MACHINE OPERATOR): Stable with Wellbutrin and Lexapro Assessment & [...] time. Assessment & Plan (12/15/2022 9:23 AM BOX LINING MACHINE OPERATOR): Continue Wellbutrin and Lexapro Assessment & Plan (12/10/2021 6:22 PM BOX LINING MACHINE OPERATOR): Patient is having increased depression sxs. He denies any suicidal or homocidal thoughts. Continue LExapro 20 Increase WellbutrinXL 300mg He is to call if he notes increase in sxs or if his sxs don't respond to the dose increase. Assessment & Plan (06/04/2021 6:42 AM CDT): Stable with wellbutrin and lexapro Assessment & Plan (12/01/2020 8:27 AM BOX LINING MACHINE OPERATOR): Continue lexapro and Wellbutrin Assessment & Plan [...] understanding. Assessment & Plan (11/26/2019 9:18 AM BOX LINING MACHINE OPERATOR): Stable with the Lexapro. Assessment & Plan [...] 02/17/20 Assessment & Plan (12/31/2023 3:02 PM BOX LINING MACHINE OPERATOR): Discussed the patient's BMI. The BMI is [...] amounts of the triamcinolone with Lamisil available [id number] to use in the area until resolved. Stressed the importance of keeping the area clean and dry may even use a powder if needed. Call if symptoms worsen or do not resolve BMI 31.0-31.9,adult 12/15/2022 06/20/20 Assessment & Plan (02/17/2024 2:56 PM CDT): Weight/BMI is in healthy range. Continue healthy lifestyle to maintain. Assessment & Plan (12/15/2022 8:31 AM BOX LINING MACHINE OPERATOR): Discussed the patient's BMI. The BMI is above average. BMI management plan is completed. BMI Follow-up includes: nutrition counseling, exercise counseling and education provided. Obesity (BMI 30-39.9) 12/10/20212022 Assessment & Plan (12/15/2022 9:24 AM BOX LINING MACHINE OPERATOR): Discussed the patient's BMI. The BMI is above average. BMI management plan is completed. BMI Follow-up includes: nutrition counseling, exercise counseling and education provided. Assessment & Plan (12/10/2021 8:11 AM BOX LINING MACHINE OPERATOR): Obesity is unchanged. Discussed the patient's BMI. The BMI is above average. BMI management plan is completed. BMI Follow-up includes: nutrition counseling, exercise counseling and education provided. BMI 33.0-33.9,adult 12/10/2021 12/15/19 Assessment & Plan (12/10/2021 8:12 AM BOX LINING MACHINE OPERATOR): Obesity is unchanged. Discussed the patient's BMI. The BMI is above average. BMI management plan is completed. BMI Follow-up includes: nutrition counseling, exercise counseling and education provided. Prostate cancer screening 12/10/2021 Assessment & Plan (12/10/2021 6:26 PM BOX LINING MACHINE OPERATOR): Check labs Arthralgia 12/10/2021 06/20/2024 Assessment & Plan (12/10/2021 6:27 PM BOX LINING MACHINE OPERATOR): This is a significant, separately identifiable problem that was evaluated and managed on the same day as the wellness exam Patient is noting increased joint pain. Mother and sister both have RA. Will check labs and determine followup pending results. Acute non-recurrent frontal sinusitis 12/10/2021 12/15/2022 Assessment & Plan (12/10/2021 6:29 PM BOX LINING MACHINE OPERATOR): This is a significant, separately identifiable problem [...] 06/15/2023 Assessment & Plan (12/15/2022 9:24 AM BOX LINING MACHINE OPERATOR): Check labs Assessment & Plan (12/10/2021 6:26 PM BOX LINING MACHINE OPERATOR): Check labs Assessment & Plan (06/04/2021 8:39 AM CDT): Check labs BMI 34.0-34.9,adult 12/01/2020 06/04/20 21 Assessment & Plan (12/01/2020 8:03 AM BOX LINING MACHINE OPERATOR): Obesity is unchanged. Discussed the patient's BMI. The BMI is above average. BMI management plan is completed. BMI Follow-up includes: nutrition counseling, exercise counseling and education provided. Obesity (BMI 30-39.9) 12/01/20202020 Assessment & Plan (12/01/2020 8:03 AM BOX LINING MACHINE OPERATOR): Obesity is unchanged. Discussed the patient's BMI. The BMI is above average. BMI management plan is completed. BMI Follow-up includes: nutrition counseling, exercise counseling and education provided. Annual physical exam 11/28/2020 021 Assessment & Plan (12/01/2020 8:28 AM BOX LINING MACHINE OPERATOR): Encouraged healthy lifestyle, good nutrition and exercise. [...] 11/26/1912/31/2023 Assessment & Plan (12/10/2021 6:26 PM BOX LINING MACHINE OPERATOR): Bp is elevated today but he is on cold medication. Will have him start the Augmentin and stop all D products. He is to take his bp at work in 1 week to determine control. Assessment & Plan (12/01/2020 8:27 AM BOX LINING MACHINE OPERATOR): Stable without medication Assessment & Plan (11/26/2019 9:14 AM BOX LINING MACHINE OPERATOR): Pt to call with readings to see [...] provided. Assessment & Plan (11/26/2019 9:13 AM BOX LINING MACHINE OPERATOR): Obesity is unchanged. Discussed the patient's BMI. 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 Obstetrics History Last Filed Vital Signs Vital Sign Reading Time Taken Comments Blood Pressure 145/89 11/26/2024 5:00 PM BOX LINING MACHINE OPERATOR Pulse 82 11/26/2024 5:00 PM BOX LINING MACHINE OPERATOR Temperature 36.6 C (97.9 F) 11/26/2024 5:00 PM BOX LINING MACHINE OPERATOR Respiratory Rate 18 11/26/2024 5:00 PM BOX LINING MACHINE OPERATOR Oxygen Saturation 99% 11/26/2024 5:00 PM BOX LINING MACHINE OPERATOR Inhaled Oxygen Concentration - - Weight 104.9 kg (231 lb 3.2 oz) 11/26/2024 5:00 PM BOX LINING MACHINE OPERATOR Height 180.3 cm (5' 10.98 ) 11/26/2024 5:[address] Body Mass Index 32.26 11/26/2024 5:00 PM BOX LINING MACHINE OPERATOR Plan of Treatment Health Maintenance Due Date [...] Comments PSA SCREEN Routine 12/31/2021 8:09 AM BOX LINING MACHINE OPERATOR COLONOSCOPY Routine 01/03/2020 from Last 3 Months or Most Recently Relevant to Health Maintenance Results * PSA screen (12/31/2021 8:09 AM BOX LINING MACHINE OPERATOR) [facility] PSA 1.3 0.0 - 4.0 ng/mL [facility] - Comment: Sergio ECLIA methodology. According to the [place] [employer], Serum PSA should decrease and [...] absence of malignant disease. 12/31/2021 8:09 AM BOX LINING MACHINE OPERATOR 12/31/2021 [facility] 01/01/2022 4:11 PM BOX LINING MACHINE OPERATOR Performed at: [address] [place], [place] [id number] [place], [place] [id number] Dye Expert: Gerardo Lundberg PhD, Phone: [phone] Tamiko RAMSEY LAB BLOOD ORDERABLES Final Result [facility] - 01 * Colonoscopy (01/03/2020) Anatomical Region Laterality Modality Other Narrative 01/03/2020 Dr. Emilio Espinal's in [place]. Negative, but plan to repeat in 5 years. Historical Provider MD ENDOSCOPY PROCEDURES Hetal l Result from Last 3 Months or Most Recently Relevant to Health Maintenance Insurance [employer] [facility] [employer] Care Teams Actuarial Director Relationship Specialty Start Date End Date Tamiko Solitario PA [address] [address] PCP - General Internal Medicine 02/01/19
--- OUTSIDE RECORDS SUMMARY | 2024-12-14 13:25 | XMS_ITS | Continuity of Care Document ---
Author Organization [facility] Address [address] [place] [address] Phone Care Team Providers Care Pipeline Systems Operator Name Role Phone Abad De La Fuente MD Unavailable Unavailable Advance Directives Directive Yes / No Effective Date File Name No Information Encounters Encounter Description Practice Location Reason(s) For Visit Diagnoses Date Provider Providers Copied on Encounter [facility], [address], [place], [place], [id number], tel:[phone] [facility] No Information 2 Sudhakar Melgoza. [address], [address], [place], [place], [id number] , [place]. tel:[phone] Referring Provider: Rah Asif, [address] [place] [address] [address], [place], [address]. tel:[phone] Family History Family Member Type Diagnosis Age At Onset No Information Payers Payer name Insurance type Covered libertarian ID Authoriza tion(s) No Information Social History [...]
[2024-12-14] MEDS: oxyCODONE HCL (*CRX) 5 MG TAB IR PO ×2 (13:47→15:51)
[2024-12-14] MEDS: ACETAMINOPHEN 500 MG TABLET 1000 MG PO (13:47)
[2024-12-14] MEDS: ONDANSETRON HCL ODT 4 MG TABLET PO (13:48)
[2024-12-14 14:01] LABS: Add Urine Microscopic? NO; Appearance Urine Clear (Clear); Basophils Percent Auto 0.3 % (0.2-1.2); Bilirubin Urine Negative (Negative); Blood Urine Negative (Negative); Color Urine Yellow (Yellow); Eosinophils Absolute Auto 0.1 K/mm3 (0-0.3); Eosinophils Percent Auto 0.8 % (0-4.4); Glucose Urine UA Negative (Negative); Hematocrit 52.3 % (42.0-52.0); Hemoglobin 17.8 g/dL (14.0-18.0); Immature Granulocyte Absolute 0.04 K/mm3 (0.00-0.031); Immature Granulocyte Percent A 0.3 % (0-0.5); Ketones Urine Negative (Negative); Leukocyte Esterase Ur Negative LEU/UL (Negative); Lymphocytes Absolute Auto 1.15 K/mm3 (0.9-3.2); Lymphocytes Percent Auto 8.1 % (18.3-44.2); Mean Corpuscular Hemoglobin 30.5 pg (26-34); Mean Corpuscular Volume 89.6 fl (80-100); Monocytes Absolute Auto 1.1 K/mm3 (0.1-0.6); Monocytes Percent Auto 7.4 % (2.6-8.5); Neutrophils Absolute Auto 11.9 K/mm3 (1.3-6.7); Neutrophils Percent Auto 83.1 % (45.5-73.1); Nitrate Urine Negative (Negative); Platelet Count Result 272 k/mm3 (150-375); Protein Urine Negative (Negative); Red Blood Count 5.84 M/mm3 (4.6-6.20); Red Cell Distribution Width 13.1 % (11.5-14.5); Specific Grav Ur 1.017 (1.001-1.035); Urobilinogen Urine 0.2 mg/dL (<2.0); White Blood Count 14.3 K/mm3 (4.5-10.0); pH Urine 6.5 (5.0-9.0)
[2024-12-14 14:16] LABS: Anion Gap 11 mmol/L (4-12); Blood Urea Nitrogen 17 mg/dL (9-20); Calcium 9.9 mg/dL (8.4-10.2); Carbon Dioxide 25 mmol/L (22-30); Chloride 101 mmol/L (98-107); Estimated CRCL calculation 73 ml/min; Estimated Glomerular Filt Rate > 60; Glucose 118 mg/dL (65-110); Potassium 4.3 mmol/L (3.4-5.0); Sodium 137 mmol/L (137-145)
--- NOTE | 2024-12-14 15:25 | WPDURCON ---
Assessment and Plan Assessment and plan (1) Left ureteral stone: Code(s): N20.1 - Calculus of ureter Status: Acute (2) Right renal stone: Code(s): N20.0 - Calculus of kidney Status: Acute Assessment and Plan: Patient to be discharged we will make arrangements for left ESWL Urology Consult Note HPI Date Seen: 12/14/24 Primary Care Provider: Tamiko Solitario, PA Consult Narrative Narrative: Rah Chang is a 59 year old male well known to our service with a history urolithiasis that have become significantly less frequent recently. He presents, however with recurrent left flank pain and imaging show an obstructing 5-6 mm left proximal ureteral stone and right lower calyceal stones. He has come quite comfortable with minimal analgesics. After discussion of options he is electing for discharge with outpatient left ESWL. Review of Systems Cardiovascular: Cardiovascular: Denies chest pain, Denies lightheadedness, Denies palpitations and Denies dyspnea Respiratory: Respiratory: Denies dyspnea Gastrointestinal: Gastrointestinal: Denies diarrhea, Denies nausea and Denies vomiting Genitourinary: Genitourinary: Denies hematuria and Denies dysuria Endocrine: Endocrine: Denies palpitations PMFSH Past Medical History Medical History Tear of left rotator cuff History of kidney stones Thyroid disorder Hypertension Arthritis Asthma Allergies Adenomatous colon polyp Renal lithiasis Depression Hypothyroidism JULES (obstructive sleep apnea) Surgical History Surgical History History of elbow surgery H/O lithotripsy Hx of colonoscopy Family History Family History Mother Cerebrovascular accident Family history of kidney stones Asthma Depression Thyroid disorder Father Family history of diabetes mellitus in first degree relative Family history of primary malignant neoplasm of liver Family history of malignant neoplasm of kidney Diabetes mellitus Hypertension Depression Heart disease Cerebrovascular accident Sibling Depression Social History Social History Smoking status: Never smoker Alcohol intake: never Substance use: never Living arrangements: with roommate(s) 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- [employer] Meds Home Medications and Allergies Home Medications ?Medication ?Instructions ?Recorded ?Confirmed ?Type escitalopram oxalate 20 mg tablet 20 mg PO DAILY 12/28/19 09/22/22 History fexofenadine 60 mg tablet (Herlinda 60 mg PO Q12H 12/28/19 09/22/22 History Allergy) meloxicam 15 mg tablet 15 mg PO DAILY 12/28/19 09/22/22 History testosterone cypionate 200 mg/mL 200 mg IM WEEKLY 12/28/19 09/22/22 History intramuscular oil thyroid (pork) 60 mg tablet 60 mg PO DAILY 12/28/19 09/22/22 History ([place]mond Thyroid) vitamin B complex (Super B-50 1 cap PO DAILY 12/28/19 09/22/22 History Complex capsule) acetaminophen 500 mg tablet 500 mg PO Q6H PRN 08/11/22 09/22/22 History (Tylenol Extra Strength) antiarthritic combination no.2 900 mg PO 08/11/22 09/22/22 History mg tablet (glucosamine-chondroitin) aspirin 325 mg tablet 325 mg PO DAILY 08/11/22 09/22/22 History bupropion HCl 300 mg 24 hr tablet, 300 mg PO QAM 08/11/22 09/22/22 History extended release caffeine 200 mg tablet 200 mg PO BID PRN 08/11/22 09/22/22 History cholecalciferol (vitamin D3) 125 125 mcg PO DAILY 08/11/22 09/22/22 History mcg (5,000 unit) capsule omega-3 fatty acids-fish oil 360 1 cap PO DAILY 08/11/22 09/22/22 History mg-1,200 mg capsule (Fish Oil) Allergies Allergy/AdvReac Type Severity Reaction Status Date / Time levothyroxine sodium (From Allergy Severe Rash Verified 12/14/24 10:28 Levothroid) Vital Signs Vital Signs - 24 hr 12/14/24 10:31 12/14/24 13:58 12/14/24 14:00 Temperature 97.9 F Pulse Rate 85 Respiratory Rate 18 Blood Pressure 176/113 H Pulse Oximetry 100 95 96 Oxygen Delivery Room Air 12/14/24 14:01 12/14/24 14:10 12/14/24 14:12 Temperature Pulse Rate 96 Respiratory Rate 18 Blood Pressure 160/104 H 155/103 H 155/103 H Pulse Oximetry 96 96 95 Oxygen Delivery 12/14/24 14:15 12/14/24 14:16 Temperature Pulse Rate Respiratory Rate Blood Pressure 157/99 H Pulse Oximetry 95 93 Oxygen Delivery Exam Const: General: no acute distress Resp: Effort & Inspection: normal respiratory effort GI: Inspection: non-distended GI Palp: No abdominal tenderness and No Guarding due to palpation present (GI) Auscultation: normal bowel sounds Results Labs 12/14/24 13:53 12/14/24 13:53 Labs: Short CBC 12/14/24 Range/Units 13:53 WBC 14.3 H (4.5-10.0) K/mm3 Hgb 17.8 (14.0-18.0) g/dL Hct 52.3 H (42.0-52.0) % Plt Count 272 (150-375) k/mm3 BMP 12/14/24 13:53 Sodium 137 Potassium 4.3 Chloride 101 Carbon Dioxide 25 BUN 17 Creatinine 1.14 Glucose 118 H Calcium 9.9 Urine 12/14/24 Range/Units 13:53 Urine Color Yellow (Yellow) Urine Appearance Clear (Clear) Urine pH 6.5 (5.0-9.0) Ur Specific [place] 1.017 (1.001-1.035) Urine Protein Negative (Negative) mg/dL Urine Glucose (UA) Negative (Negative) mg/dL
== END 2024-12-14 16:18 | disposition home or self-care (01) ==
PROVIDERS: Physician Assistant; Emergency Provider Student in an Organized Health Care Education/Training Program; PCP Physician Assistant
DX: N13.2 Hydronephrosis with renal and ureteral calculous obstruction (principal); I10 Essential (primary) hypertension; J45.909 Unspecified asthma, uncomplicated; E03.9 Hypothyroidism, unspecified; G47.33 Obstructive sleep apnea (adult) (pediatric); M19.90 Unspecified osteoarthritis, unspecified site; F32.A Depression, unspecified; Z86.0101 Personal history of adenomatous and serrated colon polyps; Z87.442 Personal history of urinary calculi; Z79.82 Long term (current) use of aspirin; Z79.899 Other long term (current) drug therapy
CPT/HCPCS: 36415; 74176; 80048; 81003; 85025; 99284; A9270

== ENCOUNTER 2024-12-14 22:42 | Emergency (ER) | payer OTHER, SELFPAY ==
--- OUTSIDE RECORDS SUMMARY | 2024-12-14 22:44 | XMS_ITS ---
Author Organization Unknown Medications Medication Instructions Effective Dates (start - stop) Status 24 HR bupropion hydrochlorid e 300 MG Extended Release Oral Tablet [id number]:00:00.00 0+00:00 - Completed escitalopram 20 MG Oral Tablet 2 470-05-40H57:00:00.000+00:00 - Completed - 1642-92-86D43:00 :00.000+00:00 - Completed ofloxacin 3 MG/ML Ophthalmic Solution [id number]:00:00.000+00:0 0 - Completed meloxicam 15 MG Oral Tablet 2022T:00:00.000+00:00 - Completed fluticasone propionate 0.05 MG/ACTUAT Metered Dose Nasal [place] [id number]:00:00.000+00:0 0 - Completed meloxicam 15 MG Oral Tablet 2022:00:00.000+00:00 - Completed escitalopram 20 MG Oral Tablet 2 [id number]:00:00.000+00:00 - Completed triamcinolone acetonide 1 MG /ML Topical Cream 9748-10-08Z38:00:00.000+00:0 0 - Completed - [id number]:00 :00.000+00:00 - Completed escitalopram 20 MG Oral Tablet 2 [id number]:00:00.000+00:00 - Completed 24 HR bupropion hydrochlorid e 300 MG Extended Release Oral Tablet [id number]:00:00.00 0+00:00 - Completed escitalopram 20 MG Oral Tablet 2 [id number]:00:00.000+00:00 - Completed 24 HR bupropion hydrochlorid e 300 MG Extended Release Oral Tablet [id number]:00:00.00 0+00:00 - Completed 24 HR bupropion hydrochlorid e 300 MG Extended Release Oral Tablet [id number]:00:00.00 0+00:00 - Completed ofloxacin 3 MG/ML Otic Solution [id number]:00:00.000+00:00 - Completed meloxicam 15 MG Oral Tablet 2021:00:00.000+00:00 - Completed amoxicillin 875 MG / clavula abhilash 125 MG Oral Tablet [id number]:00:00.000+00:0 0 - Completed Patient Care team information Name Category Status Period Participants - - Proposed period not known -
--- OUTSIDE RECORDS SUMMARY | 2024-12-14 22:44 | XMS_ITS | Clinical Summary ---
Author Organization [facility] Address [address] [address] Phone Care Team Providers Care Dust Collector Operator Name Role Phone Tamiko Solitario PAC Primary Care Provider [phone]- [phone] Social History Tobacco Use Types Packs/Day Years [...] Recently Relevant to Health Maintenance Care Teams Dust Collector Operator Relationship Specialty Start Date End Date Tamiko Solitario, PAC PCP - General Physician Veterinary Microbiologist 01/09/20
--- OUTSIDE RECORDS SUMMARY | 2024-12-14 22:44 | XMS_ITS | Continuity of Care Document ---
Author Organization [facility] Address [address] [place] [address] Phone Care Team Providers Care Spinal Surgeon Name Role Phone Abad De La Fuente MD Unavailable Unavailable Advance Directives Directive Yes / No Effective Date File Name No Information Encounters Encounter Description Practice Location Reason(s) For Visit Diagnoses Date Provider Providers Copied on Encounter [facility], [address], [place], [place], [id number], tel:[phone] [facility] No Information 2 Sudhakar Melgoza. [address], [place], [place], [address] , [place]. tel:[phone] Referring Provider: Rah Asif, [address] [place] [address] 10, [place], [address]. tel:[phone] Family History Family Member Type Diagnosis Age [...]
--- OUTSIDE RECORDS SUMMARY | 2024-12-14 22:44 | XMS_ITS | Referral Summary ---
Author Organization [facility] [address] [facility] Address [address] [place] [address] Care Team Providers Care Bow Maker Machine Tender Name Role Phone Tamiko Solitario Primary Care Provider [phone]- [phone] Encounters Date Type Department Care Team Description 11/26/2024 4:30 PM BODY DESIGNER Office Visit [facility] at [address] [address] Jermaine Causey NP Acute maxillary [...] nostril daily 1 each 3 Active omega 2-zbp-mna-fish oil 1,000 mg (120 mg-180 mg) capsule Active glucosam-navid- usz2-N-hofr-melanie sw 750 mg-644 mg- 30 mg-1 mg tablet Take by mouth Active calcium igen-M0-hhmhue ium glo 133 mg calcium -133 unit-67 [...] THE MORNING 90 tablet 1 4 Active Hinsdale Thyroid 60 mg tablet TAKE 1 TABLET [...] testosterone Assessment & Plan (12/31/2023 3:04 PM BODY DESIGNER): Patient has elevated hemoglobin. Check iron indices. [...] maintain. Assessment & Plan (12/31/2023 3:02 PM BODY DESIGNER): Discussed the patient's BMI. The BMI is [...] screenings. Assessment & Plan (12/31/2023 2:58 PM BODY DESIGNER): Encouraged healthy lifestyle, good nutrition and exercise. Encouraged Calcium and Vitamin D and weight bearing exercise for bone health. Reviewed immunizations Reviewed age appropirate screenings. Assessment & Plan (12/15/2022 9:24 AM BODY DESIGNER): Encouraged healthy lifestyle, good nutrition and exercise. Encouraged Calcium and Vitamin D and weight bearing exercise for bone health. Reviewed immunizations Reviewed age appropirate screenings. Assessment & Plan (12/10/2021 6:28 PM BODY DESIGNER): Encouraged healthy lifestyle, good nutrition and exercise. [...] re-evaluate Assessment & Plan (12/15/2022 9:23 AM BODY DESIGNER): Probably multifactorial. Check labs and followup to re-evaluate Assessment & Plan (12/10/2021 6:26 PM BODY DESIGNER): Probably multifactorial. Check labs and followup to re-evaluate Assessment & Plan (06/04/2021 8:40 AM CDT): Probably multifactorial. Check labs and followup to re-evaluate Mixed hyperlipidemia 06/04/2021 Assessment & Plan (06/20/2024 5:27 PM CDT): Encouraged patient to follow low fat/low chol diet like the Mediterranean diet. Increase good fats in the diet. Increase exercise. Monitor labs as needed. Assessment & Plan (12/31/2023 2:59 PM BODY DESIGNER): Encouraged patient to follow low fat/low chol diet like the Mediterranean diet. Increase good fats in the diet. Increase exercise. Monitor labs as needed. Assessment & Plan (12/15/2022 9:23 AM BODY DESIGNER): Encouraged patient to follow low fat/low chol diet like the Mediterranean diet. Increase good fats in the diet. Increase exercise. Monitor labs as needed. Assessment & Plan (12/10/2021 6:26 PM BODY DESIGNER): Encouraged patient to follow fat/low chol diet [...] prefers to see Dr. Erik selby at [facility]. Assessment & Plan (07/07/2019 10:26 AM CDT): [...] Flonase Assessment & Plan (12/31/2023 3:01 PM BODY DESIGNER): Continue with allergy regimen Assessment & Plan (06/04/2021 6:42 AM CDT): Stable with current otc regimen Assessment & Plan (12/01/2020 8:27 AM BODY DESIGNER): Continue otc prn Assessment & Plan (07/07/2019 [...] & Plan (06/20/2024 5:27 PM CDT): Continue Hinsdale 60 mg. Monitor labs. Assessment & Plan (12/31/2023 2:59 PM BODY DESIGNER): Continue levothyroxine. Monitor labs. Assessment & Plan (06/15/2023 10:22 PM CDT): Continue levothyroxine. Monitor labs. Assessment & Plan (12/15/2022 9:23 AM BODY DESIGNER): Continue levothyroxine. Monitor labs. Assessment & Plan (12/10/2021 6:23 PM BODY DESIGNER): Continue levothyroxine. Monitor labs. Assessment & Plan (06/04/2021 6:41 AM CDT): Continue levothyroxine. Monitor labs. Assessment & Plan (12/01/2020 8:27 AM BODY DESIGNER): Check labs. Continue Hinsdale Assessment & Plan (04/28/2020 8:30 AM CDT): Due to check labs. Continue replacement Assessment & Plan (11/26/2019 9:13 AM BODY DESIGNER): Continue replacement Assessment & Plan (07/07/2019 10:25 AM CDT): Stable. Continue replacement Assessment & Plan (05/22/2019 8:11 AM CDT): Continue with the Hinsdale. Check the labs prn Hypogonadism in male 07/03/2018 Assessment & Plan (06/20/2024 8:58 AM CDT): Continue with urology for testosterone injections Assessment & Plan (12/31/2023 2:59 PM BODY DESIGNER): Continue testosterone supplement per Urology Assessment & Plan (12/15/2022 9:23 AM BODY DESIGNER): Continue per Urology for management of his hypogonadism and testosterone replacement Assessment & Plan (12/10/2021 6:23 PM BODY DESIGNER): Continue Testosterone replacement managed by Urology Assessment & Plan (06/04/2021 6:41 AM CDT): Continue testosterone injections per Urology Assessment & Plan (12/01/2020 10:32 AM BODY DESIGNER): Managed by Urology Assessment & Plan (04/28/2020 8:30 AM CDT): Managed by Urology Assessment & Plan (11/26/2019 9:12 AM BODY DESIGNER): Continue the replacement Assessment & Plan (07/07/2019 [...] important Assessment & Plan (12/31/2023 3:02 PM BODY DESIGNER): Stable with Wellbutrin and Lexapro Assessment & [...] time. Assessment & Plan (12/15/2022 9:23 AM BODY DESIGNER): Continue Wellbutrin and Lexapro Assessment & Plan (12/10/2021 6:22 PM BODY DESIGNER): Patient is having increased depression sxs. He denies any suicidal or homocidal thoughts. Continue LExapro 20 Increase WellbutrinXL 300mg He is to call if he notes increase in sxs or if his sxs don't respond to the dose increase. Assessment & Plan (06/04/2021 6:42 AM CDT): Stable with wellbutrin and lexapro Assessment & Plan (12/01/2020 8:27 AM BODY DESIGNER): Continue lexapro and Wellbutrin Assessment & Plan [...] understanding. Assessment & Plan (11/26/2019 9:18 AM BODY DESIGNER): Stable with the Lexapro. Assessment & Plan [...] 24 Assessment & Plan (12/31/2023 3:02 PM BODY DESIGNER): Discussed the patient's BMI. The BMI is [...] amounts of the triamcinolone with Lamisil available [id number] to use in the area until resolved. Stressed the importance of keeping the area clean and dry may even use a powder if needed. Call if symptoms worsen or do not resolve BMI 31.0-31.9,adult 12/15/2022 06/20/20 Assessment & Plan (02/17/2024 2:56 PM CDT): Weight/BMI is in healthy range. Continue healthy lifestyle to maintain. Assessment & Plan (12/15/2022 8:31 AM BODY DESIGNER): Discussed the patient's BMI. The BMI is above average. BMI management plan is completed. BMI Follow-up includes: nutrition counseling, exercise counseling and education provided. Obesity (BMI 30-39.9) 12/10/20212022 Assessment & Plan (12/15/2022 9:24 AM BODY DESIGNER): Discussed the patient's BMI. The BMI is above average. BMI management plan is completed. BMI Follow-up includes: nutrition counseling, exercise counseling and education provided. Assessment & Plan (12/10/2021 8:11 AM BODY DESIGNER): Obesity is unchanged. Discussed the patient's BMI. The BMI is above average. BMI management plan is completed. BMI Follow-up includes: nutrition counseling, exercise counseling and education provided. BMI 33.0-33.9,adult 12/10/2021 12/15/19 Assessment & Plan (12/10/2021 8:12 AM BODY DESIGNER): Obesity is unchanged. Discussed the patient's BMI. The BMI is above average. BMI management plan is completed. BMI Follow-up includes: nutrition counseling, exercise counseling and education provided. Prostate cancer screening 12/10/2021 Assessment & Plan (12/10/2021 6:26 PM BODY DESIGNER): Check labs Arthralgia 12/10/2021 06/20/2024 Assessment & Plan (12/10/2021 6:27 PM BODY DESIGNER): This is a significant, separately identifiable problem that was evaluated and managed on the same day as the wellness exam Patient is noting increased joint pain. Mother and sister both have RA. Will check labs and determine followup pending results. Acute non-recurrent frontal sinusitis 12/10/2021 12/15/2022 Assessment & Plan (12/10/2021 6:29 PM BODY DESIGNER): This is a significant, separately identifiable problem [...] 06/15/2023 Assessment & Plan (12/15/2022 9:24 AM BODY DESIGNER): Check labs Assessment & Plan (12/10/2021 6:26 PM BODY DESIGNER): Check labs Assessment & Plan (06/04/2021 8:39 AM CDT): Check labs BMI 34.0-34.9,adult 12/01/2020 06/04/20 21 Assessment & Plan (12/01/2020 8:03 AM BODY DESIGNER): Obesity is unchanged. Discussed the patient's BMI. The BMI is above average. BMI management plan is completed. BMI Follow-up includes: nutrition counseling, exercise counseling and education provided. Obesity (BMI 30-39.9) 12/01/20202020 Assessment & Plan (12/01/2020 8:03 AM BODY DESIGNER): Obesity is unchanged. Discussed the patient's BMI. The BMI is above average. BMI management plan is completed. BMI Follow-up includes: nutrition counseling, exercise counseling and education provided. Annual physical exam 11/28/2020 021 Assessment & Plan (12/01/2020 8:28 AM BODY DESIGNER): Encouraged healthy lifestyle, good nutrition and exercise. [...] 12/31/2023 Assessment & Plan (12/10/2021 6:26 PM BODY DESIGNER): Bp is elevated today but he is on cold medication. Will have him start the Augmentin and stop all D products. He is to take his bp at work in 1 week to determine control. Assessment & Plan (12/01/2020 8:27 AM BODY DESIGNER): Stable without medication Assessment & Plan (11/26/2019 9:14 AM BODY DESIGNER): Pt to call with readings to see [...] provided. Assessment & Plan (11/26/2019 9:13 AM BODY DESIGNER): Obesity is unchanged. Discussed the patient's BMI. 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 Not on file Not on file Last Filed Vital Signs Vital Sign Reading Time Taken Comments Blood Pressure 145/89 11/26/2024 5:00 PM BODY DESIGNER Pulse 82 11/26/2024 5:00 PM BODY DESIGNER Temperature 36.6 C (97.9 F) 11/26/2024 5:00 PM BODY DESIGNER Respiratory Rate 18 11/26/2024 5:00 PM BODY DESIGNER Oxygen Saturation 99% 11/26/2024 5:00 PM BODY DESIGNER Inhaled Oxygen Concentration - - Weight 104.9 kg (231 lb 3.2 oz) 11/26/2024 5:00 PM BODY DESIGNER Height 180.3 cm (5' 10.98 ) 11/26/2024 5:[address] Body Mass Index 32.26 11/26/2024 5:00 PM BODY DESIGNER Plan of Treatment Not on file Procedures Procedure Name Priority Date/Time Associated Diagnosis Comments PSA SCREEN Routine 12/31/2021 8:09 AM BODY DESIGNER COLONOSCOPY Routine 01/03/2020 from Last 3 Months or Most Recently Relevant to Health Maintenance Results * PSA screen (12/31/2021 8:09 AM BODY DESIGNER) PSA 1.3 0.0 - 4.0 ng/mL [facility] - 01 Comment: Sergio ECLIA methodology. According to the [place] [employer], Serum PSA should decrease and [...] absence of malignant disease. 12/31/2021 8:09 AM BODY DESIGNER 12/31/2021 Narrative [facility] - 01/01/2022 4:11 PM BODY DESIGNER Performed at: [facility] [id number] Endband Sizer: Gerardo Lundberg PhD, Phone: [phone] Tamiko RAMSEY LAB BLOOD ORDERABLES Final Result [facility] - 01 * Colonoscopy (01/03/2020) Anatomical Region Laterality Modality Other Narrative 01/03/2020 Dr. Emilio Espinal's in [place]. Negative, but plan to repeat in 5 years. Historical Provider MD ENDOSCOPY PROCEDURES Hetal l Result from Last 3 Months or Most Recently Relevant to Health Maintenance [facility] Care Teams Bow Maker Machine Tender Relationship Specialty Start Date End Date Tamiko Solitario PA [address] [place] [address] PCP - General Internal Medicine 02/01/19
--- OUTSIDE RECORDS SUMMARY | 2024-12-14 22:44 | XMS_ITS | Clinical Summary ---
Author Organization [facility] [address] [facility] Address [address] [place] [address] Care Team Providers Care Space Systems Operations Superintendent Name Role Phone Tamiko Solitario Primary Care Provider +1- [phone] Allergies No known active allergies Medications fexofenadine [...] nostril daily 1 each 3 Active omega 6-cci-wok-fish oil 1,000 mg (120 mg-180 mg) capsule Active glucosam-navid- ypt8-T-zyjv-melanie sw 750 mg-644 mg- 30 mg-1 mg tablet Take by mouth Active calcium uawm-O1-hxzjbr ium glo 133 mg calcium -133 unit-67 [...] THE MORNING 90 tablet 1 4 Active Crapo Thyroid 60 mg tablet TAKE 1 TABLET [...] testosterone Assessment & Plan (12/31/2023 3:04 PM CYBER OPS PLANNER): Patient has elevated hemoglobin. Check iron indices. [...] maintain. Assessment & Plan (12/31/2023 3:02 PM CYBER OPS PLANNER): Discussed the patient's BMI. The BMI is [...] screenings. Assessment & Plan (12/31/2023 2:58 PM CYBER OPS PLANNER): Encouraged healthy lifestyle, good nutrition and exercise. Encouraged Calcium and Vitamin D and weight bearing exercise for bone health. Reviewed immunizations Reviewed age appropirate screenings. Assessment & Plan (12/15/2022 9:24 AM CYBER OPS PLANNER): Encouraged healthy lifestyle, good nutrition and exercise. Encouraged Calcium and Vitamin D and weight bearing exercise for bone health. Reviewed immunizations Reviewed age appropirate screenings. Assessment & Plan (12/10/2021 6:28 PM CYBER OPS PLANNER): Encouraged healthy lifestyle, good nutrition and exercise. [...] re-evaluate Assessment & Plan (12/15/2022 9:23 AM CYBER OPS PLANNER): Probably multifactorial. Check labs and followup to re-evaluate Assessment & Plan (12/10/2021 6:26 PM CYBER OPS PLANNER): Probably multifactorial. Check labs and followup to re-evaluate Assessment & Plan (06/04/2021 8:40 AM CDT): Probably multifactorial. Check labs and followup to re-evaluate Mixed hyperlipidemia 06/04/2021 Assessment & Plan (06/20/2024 5:27 PM CDT): Encouraged patient to follow low fat/low chol diet like the Mediterranean diet. Increase good fats in the diet. Increase exercise. Monitor labs as needed. Assessment & Plan (12/31/2023 2:59 PM CYBER OPS PLANNER): Encouraged patient to follow low fat/low chol diet like the Mediterranean diet. Increase good fats in the diet. Increase exercise. Monitor labs as needed. Assessment & Plan (12/15/2022 9:23 AM CYBER OPS PLANNER): Encouraged patient to follow low fat/low chol diet like the Mediterranean diet. Increase good fats in the diet. Increase exercise. Monitor labs as needed. Assessment & Plan (12/10/2021 6:26 PM CYBER OPS PLANNER): Encouraged patient to follow fat/low chol diet [...] prefers to see Dr. Erik billings at [facility]. Assessment & Plan (07/07/2019 10:26 AM CDT): [...] Flonase Assessment & Plan (12/31/2023 3:01 PM CYBER OPS PLANNER): Continue with allergy regimen Assessment & Plan (06/04/2021 6:42 AM CDT): Stable with current otc regimen Assessment & Plan (12/01/2020 8:27 AM CYBER OPS PLANNER): Continue otc prn Assessment & Plan (07/07/2019 [...] & Plan (06/20/2024 5:27 PM CDT): Continue Crapo 60 mg. Monitor labs. Assessment & Plan (12/31/2023 2:59 PM CYBER OPS PLANNER): Continue levothyroxine. Monitor labs. Assessment & Plan (06/15/2023 10:22 PM CDT): Continue levothyroxine. Monitor labs. Assessment & Plan (12/15/2022 9:23 AM CYBER OPS PLANNER): Continue levothyroxine. Monitor labs. Assessment & Plan (12/10/2021 6:23 PM CYBER OPS PLANNER): Continue levothyroxine. Monitor labs. Assessment & Plan (06/04/2021 6:41 AM CDT): Continue levothyroxine. Monitor labs. Assessment & Plan (12/01/2020 8:27 AM CYBER OPS PLANNER): Check labs. Continue Crapo Assessment & Plan (04/28/2020 8:30 AM CDT): Due to check labs. Continue replacement Assessment & Plan (11/26/2019 9:13 AM CYBER OPS PLANNER): Continue replacement Assessment & Plan (07/07/2019 10:25 AM CDT): Stable. Continue replacement Assessment & Plan (05/22/2019 8:11 AM CDT): Continue with the Crapo. Check the labs prn Hypogonadism in male 07/03/2018 Assessment & Plan (06/20/2024 8:58 AM CDT): Continue with urology for testosterone injections Assessment & Plan (12/31/2023 2:59 PM CYBER OPS PLANNER): Continue testosterone supplement per Urology Assessment & Plan (12/15/2022 9:23 AM CYBER OPS PLANNER): Continue per Urology for management of his hypogonadism and testosterone replacement Assessment & Plan (12/10/2021 6:23 PM CYBER OPS PLANNER): Continue Testosterone replacement managed by Urology Assessment & Plan (06/04/2021 6:41 AM CDT): Continue testosterone injections per Urology Assessment & Plan (12/01/2020 10:32 AM CYBER OPS PLANNER): Managed by Urology Assessment & Plan (04/28/2020 8:30 AM CDT): Managed by Urology Assessment & Plan (11/26/2019 9:12 AM CYBER OPS PLANNER): Continue the replacement Assessment & Plan (07/07/2019 [...] important Assessment & Plan (12/31/2023 3:02 PM CYBER OPS PLANNER): Stable with Wellbutrin and Lexapro Assessment & [...] time. Assessment & Plan (12/15/2022 9:23 AM CYBER OPS PLANNER): Continue Wellbutrin and Lexapro Assessment & Plan (12/10/2021 6:22 PM CYBER OPS PLANNER): Patient is having increased depression sxs. He denies any suicidal or homocidal thoughts. Continue LExapro 20 Increase WellbutrinXL 300mg He is to call if he notes increase in sxs or if his sxs don't respond to the dose increase. Assessment & Plan (06/04/2021 6:42 AM CDT): Stable with wellbutrin and lexapro Assessment & Plan (12/01/2020 8:27 AM CYBER OPS PLANNER): Continue lexapro and Wellbutrin Assessment & Plan [...] understanding. Assessment & Plan (11/26/2019 9:18 AM CYBER OPS PLANNER): Stable with the Lexapro. Assessment & Plan [...] 02/17/20 Assessment & Plan (12/31/2023 3:02 PM CYBER OPS PLANNER): Discussed the patient's BMI. The BMI is [...] amounts of the triamcinolone with Lamisil available tlne-znc-lwwyrwl to use in the area until resolved. Stressed the importance of keeping the area clean and dry may even use a powder if needed. Call if symptoms worsen or do not resolve BMI 31.0-31.9,adult 12/15/2022 06/20/20 Assessment & Plan (02/17/2024 2:56 PM CDT): Weight/BMI is in healthy range. Continue healthy lifestyle to maintain. Assessment & Plan (12/15/2022 8:31 AM CYBER OPS PLANNER): Discussed the patient's BMI. The BMI is above average. BMI management plan is completed. BMI Follow-up includes: nutrition counseling, exercise counseling and education provided. Obesity (BMI 30-39.9) 12/10/20212022 Assessment & Plan (12/15/2022 9:24 AM CYBER OPS PLANNER): Discussed the patient's BMI. The BMI is above average. BMI management plan is completed. BMI Follow-up includes: nutrition counseling, exercise counseling and education provided. Assessment & Plan (12/10/2021 8:11 AM CYBER OPS PLANNER): Obesity is unchanged. Discussed the patient's BMI. The BMI is above average. BMI management plan is completed. BMI Follow-up includes: nutrition counseling, exercise counseling and education provided. BMI 33.0-33.9,adult 12/10/2021 12/15/19 Assessment & Plan (12/10/2021 8:12 AM CYBER OPS PLANNER): Obesity is unchanged. Discussed the patient's BMI. The BMI is above average. BMI management plan is completed. BMI Follow-up includes: nutrition counseling, exercise counseling and education provided. Prostate cancer screening 12/10/2021 Assessment & Plan (12/10/2021 6:26 PM CYBER OPS PLANNER): Check labs Arthralgia 12/10/2021 06/20/2024 Assessment & Plan (12/10/2021 6:27 PM CYBER OPS PLANNER): This is a significant, separately identifiable problem that was evaluated and managed on the same day as the wellness exam Patient is noting increased joint pain. Mother and sister both have RA. Will check labs and determine followup pending results. Acute non-recurrent frontal sinusitis 12/10/2021 12/15/2022 Assessment & Plan (12/10/2021 6:29 PM CYBER OPS PLANNER): This is a significant, separately identifiable problem [...] 06/15/2023 Assessment & Plan (12/15/2022 9:24 AM CYBER OPS PLANNER): Check labs Assessment & Plan (12/10/2021 6:26 PM CYBER OPS PLANNER): Check labs Assessment & Plan (06/04/2021 8:39 AM CDT): Check labs BMI 34.0-34.9,adult 12/01/2020 06/04/20 21 Assessment & Plan (12/01/2020 8:03 AM CYBER OPS PLANNER): Obesity is unchanged. Discussed the patient's BMI. The BMI is above average. BMI management plan is completed. BMI Follow-up includes: nutrition counseling, exercise counseling and education provided. Obesity (BMI 30-39.9) 12/01/20202020 Assessment & Plan (12/01/2020 8:03 AM CYBER OPS PLANNER): Obesity is unchanged. Discussed the patient's BMI. The BMI is above average. BMI management plan is completed. BMI Follow-up includes: nutrition counseling, exercise counseling and education provided. Annual physical exam 11/28/2020 021 Assessment & Plan (12/01/2020 8:28 AM CYBER OPS PLANNER): Encouraged healthy lifestyle, good nutrition and exercise. [...] 11/26/1912/31/2023 Assessment & Plan (12/10/2021 6:26 PM CYBER OPS PLANNER): Bp is elevated today but he is on cold medication. Will have him start the Augmentin and stop all D products. He is to take his bp at work in 1 week to determine control. Assessment & Plan (12/01/2020 8:27 AM CYBER OPS PLANNER): Stable without medication Assessment & Plan (11/26/2019 9:14 AM CYBER OPS PLANNER): Pt to call with readings to see [...] provided. Assessment & Plan (11/26/2019 9:13 AM CYBER OPS PLANNER): Obesity is unchanged. Discussed the patient's BMI. 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 Not on file Not on file Obstetrics History Last Filed Vital Signs Vital Sign Reading Time Taken Comments Blood Pressure 145/89 11/26/2024 5:00 PM CYBER OPS PLANNER Pulse 82 11/26/2024 5:00 PM CYBER OPS PLANNER Temperature 36.6 C (97.9 F) 11/26/2024 5:00 PM CYBER OPS PLANNER Respiratory Rate 18 11/26/2024 5:00 PM CYBER OPS PLANNER Oxygen Saturation 99% 11/26/2024 5:00 PM CYBER OPS PLANNER Inhaled Oxygen Concentration - - Weight 104.9 kg (231 lb 3.2 oz) 11/26/2024 5:00 PM CYBER OPS PLANNER Height 180.3 cm (5' 10.98 ) 11/26/2024 5:[address] Body Mass Index 32.26 11/26/2024 5:00 PM CYBER OPS PLANNER Plan of Treatment Health Maintenance Due Date [...] Comments PSA SCREEN Routine 12/31/2021 8:09 AM CYBER OPS PLANNER COLONOSCOPY Routine 01/03/2020 from Last 3 Months or Most Recently Relevant to Health Maintenance Results * PSA screen (12/31/2021 8:09 AM CYBER OPS PLANNER) [facility] PSA 1.3 0.0 - 4.0 ng/mL [facility] - Comment: Sergio ECLIA methodology. According to the [place] [employer], Serum PSA should decrease and [...] absence of malignant disease. 12/31/2021 8:09 AM CYBER OPS PLANNER 12/31/2021 [facility] 01/01/2022 4:11 PM CYBER OPS PLANNER Performed at: [address] [place], [place] [id number] [place], [place] [id number] Java Project Manager: Gerardo Lundberg PhD, Phone: [phone] Tamiko RAMSEY LAB BLOOD ORDERABLES Final Result [facility] - 01 * Colonoscopy (01/03/2020) Anatomical Region Laterality Modality Other Narrative 01/03/2020 Dr. Emilio Espinal's in [place]. Negative, but plan to repeat in 5 years. Historical Provider MD ENDOSCOPY PROCEDURES Hetal l Result from Last 3 Months or Most Recently Relevant to Health Maintenance Insurance [employer] [facility] [employer] Care Teams Space Systems Operations Superintendent Relationship Specialty Start Date End Date Tamiko Solitario PA [address] [address] PCP - General Internal Medicine 02/01/19
[2024-12-14 22:56] VITALS: BP 168/100; PULSE 93; RESP 17; TEMP 36.4; O2SAT 96
--- NOTE | 2024-12-14 23:29 | PC.NURSE ---
Patient states his pain is now 0/10, my pain meds are working.
--- NOTE | 2024-12-15 00:45 | PC.NURSE ---
Pt to learning and development analyst my pills kicked in, I am going to go ahead on home.
--- OUTSIDE RECORDS SUMMARY | 2024-12-15 01:04 | XMS_ITS ---
Author Organization Unknown Medications Medication Instructions Effective Dates (start - stop) Status 24 HR bupropion hydrochlorid e 300 MG Extended Release Oral Tablet [id number]:00:00.00 0+00:00 - Completed escitalopram 20 MG Oral Tablet 2 [id number]:00:00.000+00:00 - Completed - [id number]:00 :00.000+00:00 - Completed ofloxacin 3 MG/ML Ophthalmic Solution [id number]:00:00.000+00:0 0 - Completed meloxicam 15 MG Oral Tablet 2022T:00:00.000+00:00 - Completed fluticasone propionate 0.05 MG/ACTUAT Metered Dose Nasal [place] [id number]:00:00.000+00:0 0 - Completed meloxicam 15 MG Oral Tablet 2022:00:00.000+00:00 - Completed escitalopram 20 MG Oral Tablet 2 [id number]:00:00.000+00:00 - Completed triamcinolone acetonide 1 MG /ML Topical Cream [id number]:00:00.000+00:0 0 - Completed - [id number]:00 :00.000+00:00 - Completed escitalopram 20 MG Oral Tablet 2 [id number]:00:00.000+00:00 - Completed 24 HR bupropion hydrochlorid e 300 MG Extended Release Oral Tablet [id number]:00:00.00 0+00:00 - Completed escitalopram 20 MG Oral Tablet 2 [id number]:00:00.000+00:00 - Completed 24 HR bupropion hydrochlorid e 300 MG Extended Release Oral Tablet [id number]:00:00.00 0+00:00 - Completed 24 HR bupropion hydrochlorid e 300 MG Extended Release Oral Tablet [id number]:00:00.00 0+00:00 - Completed ofloxacin 3 MG/ML Otic Solution [id number]:00:00.000+00:00 - Completed meloxicam 15 MG Oral Tablet 2021:00:00.000+00:00 - Completed amoxicillin 875 MG / clavula abhilash 125 MG Oral Tablet [id number]:00:00.000+00:0 0 - Completed Patient Care team information Name Category Status Period Participants - - Proposed period not known -
--- OUTSIDE RECORDS SUMMARY | 2024-12-15 01:04 | XMS_ITS | Referral Summary ---
Author Organization [facility] [address] [facility] Address [address] [place] [address] Care Team Providers Care Pediatric Geneticist Name Role Phone Tamiko Solitario Primary Care Provider [phone] Encounters Date Type Department Care Team Description 11/26/2024 4:30 PM [facility] Office Visit [facility] at [address] [address] Jermaine Causey NP Acute maxillary [...] nostril daily 1 each 3 Active omega 3-bkh-qig-fish oil 1,000 mg (120 mg-180 mg) capsule Active glucosam-navid- knh2-L-jjrf-melanie sw 750 mg-644 mg- 30 mg-1 mg tablet Take by mouth Active calcium irfi-D0-nxosou ium glo 133 mg calcium -133 unit-67 [...] THE MORNING 90 tablet 1 4 Active [place] Thyroid 60 mg tablet TAKE 1 TABLET [...] testosterone Assessment & Plan (12/31/2023 3:04 PM [facility]): Patient has elevated hemoglobin. Check iron indices. [...] maintain. Assessment & Plan (12/31/2023 3:02 PM [facility]): Discussed the patient's BMI. The BMI is [...] screenings. Assessment & Plan (12/31/2023 2:58 PM [facility]): Encouraged healthy lifestyle, good nutrition and exercise. Encouraged Calcium and Vitamin D and weight bearing exercise for bone health. Reviewed immunizations Reviewed age appropirate screenings. Assessment & Plan (12/15/2022 9:24 AM [facility]): Encouraged healthy lifestyle, good nutrition and exercise. Encouraged Calcium and Vitamin D and weight bearing exercise for bone health. Reviewed immunizations Reviewed age appropirate screenings. Assessment & Plan (12/10/2021 6:28 PM [facility]): Encouraged healthy lifestyle, good nutrition and exercise. [...] re-evaluate Assessment & Plan (12/15/2022 9:23 AM [facility]): Probably multifactorial. Check labs and followup to re-evaluate Assessment & Plan (12/10/2021 6:26 PM [facility]): Probably multifactorial. Check labs and followup to re-evaluate Assessment & Plan (06/04/2021 8:40 AM CDT): Probably multifactorial. Check labs and followup to re-evaluate Mixed hyperlipidemia 06/04/2021 Assessment & Plan (06/20/2024 5:27 PM CDT): Encouraged patient to follow low fat/low chol diet like the Mediterranean diet. Increase good fats in the diet. Increase exercise. Monitor labs as needed. Assessment & Plan (12/31/2023 2:59 PM [facility]): Encouraged patient to follow low fat/low chol diet like the Mediterranean diet. Increase good fats in the diet. Increase exercise. Monitor labs as needed. Assessment & Plan (12/15/2022 9:23 AM [facility]): Encouraged patient to follow low fat/low chol diet like the Mediterranean diet. Increase good fats in the diet. Increase exercise. Monitor labs as needed. Assessment & Plan (12/10/2021 6:26 PM [facility]): Encouraged patient to follow fat/low chol diet [...] prefers to see Dr. Erik selby at [facility]. Assessment & Plan (07/07/2019 10:26 [...] Flonase Assessment & Plan (12/31/2023 3:01 PM [facility]): Continue with allergy regimen Assessment & Plan (06/04/2021 6:42 AM CDT): Stable with current otc regimen Assessment & Plan (12/01/2020 8:27 AM [facility]): Continue otc prn Assessment & Plan (07/07/2019 [...] & Plan (06/20/2024 5:27 PM CDT): Continue Dallas 60 mg. Monitor labs. Assessment & Plan (12/31/2023 2:59 PM [facility]): Continue levothyroxine. Monitor labs. Assessment & Plan (06/15/2023 10:22 PM CDT): Continue levothyroxine. Monitor labs. Assessment & Plan (12/15/2022 9:23 AM [facility]): Continue levothyroxine. Monitor labs. Assessment & Plan (12/10/2021 6:23 PM [facility]): Continue levothyroxine. Monitor labs. Assessment & Plan (06/04/2021 6:41 AM CDT): Continue levothyroxine. Monitor labs. Assessment & Plan (12/01/2020 8:27 AM [facility]): Check labs. Continue Dallas Assessment & Plan (04/28/2020 8:30 AM CDT): Due to check labs. Continue replacement Assessment & Plan (11/26/2019 9:13 AM [facility]): Continue replacement Assessment & Plan (07/07/2019 10:25 AM CDT): Stable. Continue replacement Assessment & Plan (05/22/2019 8:11 AM CDT): Continue with the Dallas. Check the labs prn Hypogonadism in male 07/03/2018 Assessment & Plan (06/20/2024 8:58 AM CDT): Continue with urology for testosterone injections Assessment & Plan (12/31/2023 2:59 PM [facility]): Continue testosterone supplement per Urology Assessment & Plan (12/15/2022 9:23 AM [facility]): Continue per Urology for management of his hypogonadism and testosterone replacement Assessment & Plan (12/10/2021 6:23 PM [facility]): Continue Testosterone replacement managed by Urology Assessment & Plan (06/04/2021 6:41 AM CDT): Continue testosterone injections per Urology Assessment & Plan (12/01/2020 10:32 AM [facility]): Managed by Urology Assessment & Plan (04/28/2020 8:30 AM CDT): Managed by Urology Assessment & Plan (11/26/2019 9:12 AM [facility]): Continue the replacement Assessment & Plan (07/07/2019 [...] important Assessment & Plan (12/31/2023 3:02 PM [facility]): Stable with Wellbutrin and Lexapro Assessment & [...] time. Assessment & Plan (12/15/2022 9:23 AM [facility]): Continue Wellbutrin and Lexapro Assessment & Plan (12/10/2021 6:22 PM [facility]): Patient is having increased depression sxs. He denies any suicidal or homocidal thoughts. Continue LExapro 20 Increase WellbutrinXL 300mg He is to call if he notes increase in sxs or if his sxs don't respond to the dose increase. Assessment & Plan (06/04/2021 6:42 AM CDT): Stable with wellbutrin and lexapro Assessment & Plan (12/01/2020 8:27 AM [facility]): Continue lexapro and Wellbutrin Assessment & Plan [...] understanding. Assessment & Plan (11/26/2019 9:18 AM [facility]): Stable with the Lexapro. Assessment & Plan [...] 24 Assessment & Plan (12/31/2023 3:02 PM [facility]): Discussed the patient's BMI. The BMI is [...] amounts of the triamcinolone with Lamisil available frgb-eez-faqovhk to use in the area until resolved. Stressed the importance of keeping the area clean and dry may even use a powder if needed. Call if symptoms worsen or do not resolve BMI 31.0-31.9,adult 12/15/2022 06/20/20 Assessment & Plan (02/17/2024 2:56 PM CDT): Weight/BMI is in healthy range. Continue healthy lifestyle to maintain. Assessment & Plan (12/15/2022 8:31 AM [facility]): Discussed the patient's BMI. The BMI is above average. BMI management plan is completed. BMI Follow-up includes: nutrition counseling, exercise counseling and education provided. Obesity (BMI 30-39.9) 12/10/20212022 Assessment & Plan (12/15/2022 9:24 AM [facility]): Discussed the patient's BMI. The BMI is above average. BMI management plan is completed. BMI Follow-up includes: nutrition counseling, exercise counseling and education provided. Assessment & Plan (12/10/2021 8:11 AM [facility]): Obesity is unchanged. Discussed the patient's BMI. The BMI is above average. BMI management plan is completed. BMI Follow-up includes: nutrition counseling, exercise counseling and education provided. BMI 33.0-33.9,adult 12/10/2021 12/15/19 Assessment & Plan (12/10/2021 8:12 AM [facility]): Obesity is unchanged. Discussed the patient's BMI. The BMI is above average. BMI management plan is completed. BMI Follow-up includes: nutrition counseling, exercise counseling and education provided. Prostate cancer screening 12/10/2021 Assessment & Plan (12/10/2021 6:26 PM [facility]): Check labs Arthralgia 12/10/2021 06/20/2024 Assessment & Plan (12/10/2021 6:27 PM [facility]): This is a significant, separately identifiable problem that was evaluated and managed on the same day as the wellness exam Patient is noting increased joint pain. Mother and sister both have RA. Will check labs and determine followup pending results. Acute non-recurrent frontal sinusitis 12/10/2021 12/15/2022 Assessment & Plan (12/10/2021 6:29 PM [facility]): This is a significant, separately identifiable problem [...] 06/15/2023 Assessment & Plan (12/15/2022 9:24 AM [facility]): Check labs Assessment & Plan (12/10/2021 6:26 PM [facility]): Check labs Assessment & Plan (06/04/2021 8:39 AM CDT): Check labs BMI 34.0-34.9,adult 12/01/2020 06/04/20 21 Assessment & Plan (12/01/2020 8:03 AM [facility]): Obesity is unchanged. Discussed the patient's BMI. The BMI is above average. BMI management plan is completed. BMI Follow-up includes: nutrition counseling, exercise counseling and education provided. Obesity (BMI 30-39.9) 12/01/20202020 Assessment & Plan (12/01/2020 8:03 AM [facility]): Obesity is unchanged. Discussed the patient's BMI. The BMI is above average. BMI management plan is completed. BMI Follow-up includes: nutrition counseling, exercise counseling and education provided. Annual physical exam 11/28/2020 021 Assessment & Plan (12/01/2020 8:28 AM [facility]): Encouraged healthy lifestyle, good nutrition and exercise. [...] 12/31/2023 Assessment & Plan (12/10/2021 6:26 PM [facility]): Bp is elevated today but he is on cold medication. Will have him start the Augmentin and stop all D products. He is to take his bp at work in 1 week to determine control. Assessment & Plan (12/01/2020 8:27 AM [facility]): Stable without medication Assessment & Plan (11/26/2019 9:14 AM [facility]): Pt to call with readings to see [...] provided. Assessment & Plan (11/26/2019 9:13 AM [facility]): Obesity is unchanged. Discussed the patient's BMI. 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 Not on file Not on file Last Filed Vital Signs Vital Sign Reading Time Taken Comments Blood Pressure 145/89 11/26/2024 5:00 PM [facility] Pulse 82 11/26/2024 5:00 PM [facility] Temperature 36.6 C (97.9 F) 11/26/2024 5:00 PM [facility] Respiratory Rate 18 11/26/2024 5:00 PM [facility] Oxygen Saturation 99% 11/26/2024 5:00 PM [facility] Inhaled Oxygen Concentration - - Weight 104.9 kg (231 lb 3.2 oz) 11/26/2024 5:00 PM [facility] Height 180.3 cm (5' 10.98 ) 11/26/2024 5:[address] Body Mass Index 32.26 11/26/2024 5:00 PM [facility] Plan of Treatment Not on file Procedures Procedure Name Priority Date/Time Associated Diagnosis Comments PSA SCREEN Routine 12/31/2021 8:09 AM [facility] COLONOSCOPY Routine 01/03/2020 from Last 3 Months or Most Recently Relevant to Health Maintenance Results * PSA screen (12/31/2021 8:09 AM [facility]) PSA 1.3 0.0 - 4.0 ng/mL [facility] - 01 Comment: Sergio ECLIA methodology. According to the [employer], Serum PSA should decrease and [...] absence of malignant disease. 12/31/2021 8:09 AM [facility] 12/31/2021 Narrative [facility] - 01/01/2022 4:11 PM [facility] Performed at: [facility] [id number] Import Export Agent: Gerardo Lundberg PhD, Phone: [phone] Tamiko RAMSEY LAB BLOOD ORDERABLES Final Result [facility] - 01 * Colonoscopy (01/03/2020) Anatomical Region Laterality Modality Other Narrative 01/03/2020 Dr. Emilio Espinal's in [place]. Negative, but plan to repeat in 5 years. Historical Provider MD ENDOSCOPY PROCEDURES Hetal l Result from Last 3 Months or Most Recently Relevant to Health Maintenance Insurance [facility] Care Teams Pediatric Geneticist Relationship Specialty Start Date End Date Tamiko Solitario PA [address] [place] [address] PCP - General Internal Medicine 02/01/19
--- OUTSIDE RECORDS SUMMARY | 2024-12-15 01:04 | XMS_ITS | Clinical Summary ---
Author Organization [facility] [address] [facility] [place] Address [address] [place] [address] Care Team Providers Care Gem Carver Name Role Phone Tamiko Solitario Primary Care Provider +1- [phone] Allergies No known active allergies Medications fexofenadine [...] nostril daily 1 each 3 Active omega 3-wfk-bgf-fish oil 1,000 mg (120 mg-180 mg) capsule Active glucosam-navid- jwy4-X-ukis-melanie sw 750 mg-644 mg- 30 mg-1 mg tablet Take by mouth Active calcium brox-Z7-lpjwer ium glo 133 mg calcium -133 unit-67 [...] THE MORNING 90 tablet 1 4 Active Cheney Thyroid 60 mg tablet TAKE 1 TABLET [...] testosterone Assessment & Plan (12/31/2023 3:04 PM FLOATING LABOR GANG SUPERVISOR): Patient has elevated hemoglobin. Check iron indices. [...] maintain. Assessment & Plan (12/31/2023 3:02 PM FLOATING LABOR GANG SUPERVISOR): Discussed the patient's BMI. The BMI is [...] screenings. Assessment & Plan (12/31/2023 2:58 PM FLOATING LABOR GANG SUPERVISOR): Encouraged healthy lifestyle, good nutrition and exercise. Encouraged Calcium and Vitamin D and weight bearing exercise for bone health. Reviewed immunizations Reviewed age appropirate screenings. Assessment & Plan (12/15/2022 9:24 AM FLOATING LABOR GANG SUPERVISOR): Encouraged healthy lifestyle, good nutrition and exercise. Encouraged Calcium and Vitamin D and weight bearing exercise for bone health. Reviewed immunizations Reviewed age appropirate screenings. Assessment & Plan (12/10/2021 6:28 PM FLOATING LABOR GANG SUPERVISOR): Encouraged healthy lifestyle, good nutrition and exercise. [...] re-evaluate Assessment & Plan (12/15/2022 9:23 AM FLOATING LABOR GANG SUPERVISOR): Probably multifactorial. Check labs and followup to re-evaluate Assessment & Plan (12/10/2021 6:26 PM FLOATING LABOR GANG SUPERVISOR): Probably multifactorial. Check labs and followup to re-evaluate Assessment & Plan (06/04/2021 8:40 AM CDT): Probably multifactorial. Check labs and followup to re-evaluate Mixed hyperlipidemia 06/04/2021 Assessment & Plan (06/20/2024 5:27 PM CDT): Encouraged patient to follow low fat/low chol diet like the Mediterranean diet. Increase good fats in the diet. Increase exercise. Monitor labs as needed. Assessment & Plan (12/31/2023 2:59 PM FLOATING LABOR GANG SUPERVISOR): Encouraged patient to follow low fat/low chol diet like the Mediterranean diet. Increase good fats in the diet. Increase exercise. Monitor labs as needed. Assessment & Plan (12/15/2022 9:23 AM FLOATING LABOR GANG SUPERVISOR): Encouraged patient to follow low fat/low chol diet like the Mediterranean diet. Increase good fats in the diet. Increase exercise. Monitor labs as needed. Assessment & Plan (12/10/2021 6:26 PM FLOATING LABOR GANG SUPERVISOR): Encouraged patient to follow fat/low chol diet [...] prefers to see Dr. Erik billings at [facility]. Assessment & Plan (07/07/2019 10:26 AM [...] Flonase Assessment & Plan (12/31/2023 3:01 PM FLOATING LABOR GANG SUPERVISOR): Continue with allergy regimen Assessment & Plan (06/04/2021 6:42 AM CDT): Stable with current otc regimen Assessment & Plan (12/01/2020 8:27 AM FLOATING LABOR GANG SUPERVISOR): Continue otc prn Assessment & Plan (07/07/2019 [...] & Plan (06/20/2024 5:27 PM CDT): Continue Cheney 60 mg. Monitor labs. Assessment & Plan (12/31/2023 2:59 PM FLOATING LABOR GANG SUPERVISOR): Continue levothyroxine. Monitor labs. Assessment & Plan (06/15/2023 10:22 PM CDT): Continue levothyroxine. Monitor labs. Assessment & Plan (12/15/2022 9:23 AM FLOATING LABOR GANG SUPERVISOR): Continue levothyroxine. Monitor labs. Assessment & Plan (12/10/2021 6:23 PM FLOATING LABOR GANG SUPERVISOR): Continue levothyroxine. Monitor labs. Assessment & Plan (06/04/2021 6:41 AM CDT): Continue levothyroxine. Monitor labs. Assessment & Plan (12/01/2020 8:27 AM FLOATING LABOR GANG SUPERVISOR): Check labs. Continue Cheney Assessment & Plan (04/28/2020 8:30 AM CDT): Due to check labs. Continue replacement Assessment & Plan (11/26/2019 9:13 AM FLOATING LABOR GANG SUPERVISOR): Continue replacement Assessment & Plan (07/07/2019 10:25 AM CDT): Stable. Continue replacement Assessment & Plan (05/22/2019 8:11 AM CDT): Continue with the Cheney. Check the labs prn Hypogonadism in male 07/03/2018 Assessment & Plan (06/20/2024 8:58 AM CDT): Continue with urology for testosterone injections Assessment & Plan (12/31/2023 2:59 PM FLOATING LABOR GANG SUPERVISOR): Continue testosterone supplement per Urology Assessment & Plan (12/15/2022 9:23 AM FLOATING LABOR GANG SUPERVISOR): Continue per Urology for management of his hypogonadism and testosterone replacement Assessment & Plan (12/10/2021 6:23 PM FLOATING LABOR GANG SUPERVISOR): Continue Testosterone replacement managed by Urology Assessment & Plan (06/04/2021 6:41 AM CDT): Continue testosterone injections per Urology Assessment & Plan (12/01/2020 10:32 AM FLOATING LABOR GANG SUPERVISOR): Managed by Urology Assessment & Plan (04/28/2020 8:30 AM CDT): Managed by Urology Assessment & Plan (11/26/2019 9:12 AM FLOATING LABOR GANG SUPERVISOR): Continue the replacement Assessment & Plan (07/07/2019 [...] important Assessment & Plan (12/31/2023 3:02 PM FLOATING LABOR GANG SUPERVISOR): Stable with Wellbutrin and Lexapro Assessment & [...] time. Assessment & Plan (12/15/2022 9:23 AM FLOATING LABOR GANG SUPERVISOR): Continue Wellbutrin and Lexapro Assessment & Plan (12/10/2021 6:22 PM FLOATING LABOR GANG SUPERVISOR): Patient is having increased depression sxs. He denies any suicidal or homocidal thoughts. Continue LExapro 20 Increase WellbutrinXL 300mg He is to call if he notes increase in sxs or if his sxs don't respond to the dose increase. Assessment & Plan (06/04/2021 6:42 AM CDT): Stable with wellbutrin and lexapro Assessment & Plan (12/01/2020 8:27 AM FLOATING LABOR GANG SUPERVISOR): Continue lexapro and Wellbutrin Assessment & Plan [...] understanding. Assessment & Plan (11/26/2019 9:18 AM FLOATING LABOR GANG SUPERVISOR): Stable with the Lexapro. Assessment & Plan [...] 02/17/20 Assessment & Plan (12/31/2023 3:02 PM FLOATING LABOR GANG SUPERVISOR): Discussed the patient's BMI. The BMI is [...] amounts of the triamcinolone with Lamisil available [id number] to use in the area until resolved. Stressed the importance of keeping the area clean and dry may even use a powder if needed. Call if symptoms worsen or do not resolve BMI 31.0-31.9,adult 12/15/2022 06/20/20 Assessment & Plan (02/17/2024 2:56 PM CDT): Weight/BMI is in healthy range. Continue healthy lifestyle to maintain. Assessment & Plan (12/15/2022 8:31 AM FLOATING LABOR GANG SUPERVISOR): Discussed the patient's BMI. The BMI is above average. BMI management plan is completed. BMI Follow-up includes: nutrition counseling, exercise counseling and education provided. Obesity (BMI 30-39.9) 12/10/20212022 Assessment & Plan (12/15/2022 9:24 AM FLOATING LABOR GANG SUPERVISOR): Discussed the patient's BMI. The BMI is above average. BMI management plan is completed. BMI Follow-up includes: nutrition counseling, exercise counseling and education provided. Assessment & Plan (12/10/2021 8:11 AM FLOATING LABOR GANG SUPERVISOR): Obesity is unchanged. Discussed the patient's BMI. The BMI is above average. BMI management plan is completed. BMI Follow-up includes: nutrition counseling, exercise counseling and education provided. BMI 33.0-33.9,adult 12/10/2021 12/15/19 Assessment & Plan (12/10/2021 8:12 AM FLOATING LABOR GANG SUPERVISOR): Obesity is unchanged. Discussed the patient's BMI. The BMI is above average. BMI management plan is completed. BMI Follow-up includes: nutrition counseling, exercise counseling and education provided. Prostate cancer screening 12/10/2021 Assessment & Plan (12/10/2021 6:26 PM FLOATING LABOR GANG SUPERVISOR): Check labs Arthralgia 12/10/2021 06/20/2024 Assessment & Plan (12/10/2021 6:27 PM FLOATING LABOR GANG SUPERVISOR): This is a significant, separately identifiable problem that was evaluated and managed on the same day as the wellness exam Patient is noting increased joint pain. Mother and sister both have RA. Will check labs and determine followup pending results. Acute non-recurrent frontal sinusitis 12/10/2021 12/15/2022 Assessment & Plan (12/10/2021 6:29 PM FLOATING LABOR GANG SUPERVISOR): This is a significant, separately identifiable problem [...] 06/15/2023 Assessment & Plan (12/15/2022 9:24 AM FLOATING LABOR GANG SUPERVISOR): Check labs Assessment & Plan (12/10/2021 6:26 PM FLOATING LABOR GANG SUPERVISOR): Check labs Assessment & Plan (06/04/2021 8:39 AM CDT): Check labs BMI 34.0-34.9,adult 12/01/2020 06/04/20 21 Assessment & Plan (12/01/2020 8:03 AM FLOATING LABOR GANG SUPERVISOR): Obesity is unchanged. Discussed the patient's BMI. The BMI is above average. BMI management plan is completed. BMI Follow-up includes: nutrition counseling, exercise counseling and education provided. Obesity (BMI 30-39.9) 12/01/20202020 Assessment & Plan (12/01/2020 8:03 AM FLOATING LABOR GANG SUPERVISOR): Obesity is unchanged. Discussed the patient's BMI. The BMI is above average. BMI management plan is completed. BMI Follow-up includes: nutrition counseling, exercise counseling and education provided. Annual physical exam 11/28/2020 021 Assessment & Plan (12/01/2020 8:28 AM FLOATING LABOR GANG SUPERVISOR): Encouraged healthy lifestyle, good nutrition and exercise. [...] 11/26/1912/31/2023 Assessment & Plan (12/10/2021 6:26 PM FLOATING LABOR GANG SUPERVISOR): Bp is elevated today but he is on cold medication. Will have him start the Augmentin and stop all D products. He is to take his bp at work in 1 week to determine control. Assessment & Plan (12/01/2020 8:27 AM FLOATING LABOR GANG SUPERVISOR): Stable without medication Assessment & Plan (11/26/2019 9:14 AM FLOATING LABOR GANG SUPERVISOR): Pt to call with readings to see [...] provided. Assessment & Plan (11/26/2019 9:13 AM FLOATING LABOR GANG SUPERVISOR): Obesity is unchanged. Discussed the patient's BMI. [...] Department Care Team Description 11/26/2024 4:30 PM FLOATING LABOR GANG SUPERVISOR Office Visit [facility] [address] [address] Jermaine Causey NP Acute maxillary [...] on file Legal Sex Male 8:44 PM FLOATING LABOR GANG SUPERVISOR Gender Identity Male 08/04/2021 1:13 PM CDT Sexual Orientation Not on file Occupation Industry Job Start Date Job End Date [employer] Not on file Not on file Not on file Obstetrics History Last Filed Vital Signs Vital Sign Reading Time Taken Comments Blood Pressure 145/89 11/26/2024 5:00 PM FLOATING LABOR GANG SUPERVISOR Pulse 82 11/26/2024 5:00 PM FLOATING LABOR GANG SUPERVISOR Temperature 36.6 C (97.9 F) 11/26/2024 5:00 PM FLOATING LABOR GANG SUPERVISOR Respiratory Rate 18 11/26/2024 5:00 PM FLOATING LABOR GANG SUPERVISOR Oxygen Saturation 99% 11/26/2024 5:00 PM FLOATING LABOR GANG SUPERVISOR Inhaled Oxygen Concentration - - Weight 104.9 kg (231 lb 3.2 oz) 11/26/2024 5:00 PM FLOATING LABOR GANG SUPERVISOR Height 180.3 cm (5' 10.98 ) 11/26/2024 5:[address] Body Mass Index 32.26 11/26/2024 5:00 PM FLOATING LABOR GANG SUPERVISOR Plan of Treatment Health Maintenance Due Date [...] Comments PSA SCREEN Routine 12/31/2021 8:09 AM FLOATING LABOR GANG SUPERVISOR COLONOSCOPY Routine 01/03/2020 from Last 3 Months or Most Recently Relevant to Health Maintenance Results * PSA screen (12/31/2021 8:09 AM FLOATING LABOR GANG SUPERVISOR) [facility] PSA 1.3 0.0 - 4.0 ng/mL [facility] - Comment: Sergio ECLIA methodology. According to the [place] [employer], Serum PSA should decrease and [...] absence of malignant disease. 12/31/2021 8:09 AM FLOATING LABOR GANG SUPERVISOR 12/31/2021 [facility] 01/01/2022 4:11 PM FLOATING LABOR GANG SUPERVISOR Performed at: [address] [place], [place] [id number] [place], [place] [id number] Utility Tech: Gerardo Lundberg PhD, Phone: [phone] Tamiko RAMSEY LAB BLOOD ORDERABLES Final Result [facility] - 01 * Colonoscopy (01/03/2020) Anatomical Region Laterality Modality Other Narrative 01/03/2020 Dr. Emilio Espnial's in [place]. Negative, but plan to repeat in 5 years. Historical Provider MD ENDOSCOPY PROCEDURES Hetal l Result from Last 3 Months or Most Recently Relevant to Health Maintenance Insurance [employer] [facility] [employer] Care Teams Gem Carver Relationship Specialty Start Date End Date Tamiko Solitario PA [address] [address] PCP - General Internal Medicine 02/01/19
--- OUTSIDE RECORDS SUMMARY | 2024-12-15 01:04 | XMS_ITS | Continuity of Care Document ---
Author Organization [facility] Address [address] [place] [address] Phone Care Team Providers Care Cork Tipper Name Role Phone Abad De La Fuente MD Unavailable Unavailable Advance Directives Directive Yes / No Effective Date File Name No Information Encounters Encounter Description Practice Location Reason(s) For Visit Diagnoses Date Provider Providers Copied on Encounter [facility], [address], [place], [place], [id number], tel:[phone] [facility] No Information 2 Sudhakar Melgoza. [address], [place], [place], [id number] , [place]. tel:[phone] Referring Provider: Rah Asif, [address] [place] [address] [address], [place], [address]. tel:[phone] Family History Family Member Type Diagnosis Age At Onset No Information Payers Payer name Insurance type Covered democrat ID Authoriza tion(s) No Information Social History [...]
--- OUTSIDE RECORDS SUMMARY | 2024-12-15 01:04 | XMS_ITS | Clinical Summary ---
Author Organization [facility] Address [address] [address] Phone Care Team Providers Care Effervescent Salts Compounder Name Role Phone Tamiko Solitario PAC Primary Care Provider [phone]- [phone] Social History Tobacco Use Types Packs/Day Years [...] Recently Relevant to Health Maintenance Care Teams Effervescent Salts Compounder Relationship Specialty Start Date End Date Tamiko Solitario, PAC PCP - General Physician Bobbin Stripper 01/09/20
== END 2024-12-15 01:27 | disposition left against medical advice (07) ==
PROVIDERS: PCP Physician Assistant
DX: R10.9 Unspecified abdominal pain (principal)
CPT/HCPCS: 99199

== ENCOUNTER 2024-12-17 13:42 | Outpatient (CLI) | payer OTHER, SELFPAY ==
[2024-12-17 14:47] LABS: INR 0.9; Prothrombin Time 12.3 Seconds (11.1-14.7)
[2024-12-17 14:48] LABS: Partial Thromboplastin Time 27.6 Seconds (22.3-36.8)
--- OUTSIDE RECORDS SUMMARY | 2024-12-17 15:49 | XMS_ITS ---
Author Organization Unknown Medications Medication Instructions Effective Dates (start - stop) Status 24 HR bupropion hydrochlorid e 300 MG Extended Release Oral Tablet [id number]:00:00.00 0+00:00 - Completed escitalopram 20 MG Oral Tablet 2 590-49-09S09:00:00.000+00:00 - Completed - [id number]:00 :00.000+00:00 - Completed ofloxacin 3 MG/ML Ophthalmic Solution [id number]:00:00.000+00:0 0 - Completed meloxicam 15 MG Oral Tablet 2022T:00:00.000+00:00 - Completed fluticasone propionate 0.05 MG/ACTUAT Metered Dose Nasal [place] [id number]:00:00.000+00:0 0 - Completed meloxicam 15 MG Oral Tablet 2022:00:00.000+00:00 - Completed escitalopram 20 MG Oral Tablet 2 [id number]:00:00.000+00:00 - Completed triamcinolone acetonide 1 MG /ML Topical Cream [id number]:00:00.000+00:0 0 - Completed - [id number]:00 :00.000+00:00 - Completed escitalopram 20 MG Oral Tablet 2 [id number]:00:00.000+00:00 - Completed 24 HR bupropion hydrochlorid e 300 MG Extended Release Oral Tablet [id number]:00:00.00 0+00:00 - Completed escitalopram 20 MG Oral Tablet 2 [id number]:00:00.000+00:00 - Completed 24 HR bupropion hydrochlorid e 300 MG Extended Release Oral Tablet [id number]:00:00.00 0+00:00 - Completed 24 HR bupropion hydrochlorid e 300 MG Extended Release Oral Tablet [id number]:00:00.00 0+00:00 - Completed ofloxacin 3 MG/ML Otic Solution [id number]:00:00.000+00:00 - Completed meloxicam 15 MG Oral Tablet 2021:00:00.000+00:00 - Completed amoxicillin 875 MG / clavula abhilash 125 MG Oral Tablet [id number]:00:00.000+00:0 0 - Completed Patient Care team information Name Category Status Period Participants - - Proposed period not known -
--- OUTSIDE RECORDS SUMMARY | 2024-12-17 15:49 | XMS_ITS | Clinical Summary ---
Author Organization [facility] Address [address] [address] Phone Care Team Providers Care Adult Literacy Instructor Name Role Phone Tamiko Solitario PAC Primary Care Provider +1- [phone] Social History Tobacco Use Types Packs/Day Years [...] Recently Relevant to Health Maintenance Care Teams Adult Literacy Instructor Relationship Specialty Start Date End Date Tamiko Solitario, PAC PCP - General Physician Airplane Dispatch Clerk 01/09/20
--- OUTSIDE RECORDS SUMMARY | 2024-12-17 15:49 | XMS_ITS | Clinical Summary ---
Author Organization [facility] [address] [facility] Address [address] [place] [address] Care Team Providers Care Exhaust Equipment Operator Name Role Phone Tamiko Solitario Primary Care Provider +1- [phone] Allergies No known active allergies Medications fexofenadine [...] nostril daily 1 each 3 Active omega 2-hzp-pgo-fish oil 1,000 mg (120 mg-180 mg) capsule Active glucosam-navid- opo2-U-rbzs-melanie sw 750 mg-644 mg- 30 mg-1 mg tablet Take by mouth Active calcium vdxi-A8-dcwued ium glo 133 mg calcium -133 unit-67 [...] THE MORNING 90 tablet 1 4 Active [place] Thyroid 60 mg tablet TAKE 1 TABLET [...] testosterone Assessment & Plan (12/31/2023 3:04 PM GAMB CUTTER): Patient has elevated hemoglobin. Check iron indices. [...] maintain. Assessment & Plan (12/31/2023 3:02 PM GAMB CUTTER): Discussed the patient's BMI. The BMI is [...] screenings. Assessment & Plan (12/31/2023 2:58 PM GAMB CUTTER): Encouraged healthy lifestyle, good nutrition and exercise. Encouraged Calcium and Vitamin D and weight bearing exercise for bone health. Reviewed immunizations Reviewed age appropirate screenings. Assessment & Plan (12/15/2022 9:24 AM GAMB CUTTER): Encouraged healthy lifestyle, good nutrition and exercise. Encouraged Calcium and Vitamin D and weight bearing exercise for bone health. Reviewed immunizations Reviewed age appropirate screenings. Assessment & Plan (12/10/2021 6:28 PM GAMB CUTTER): Encouraged healthy lifestyle, good nutrition and exercise. [...] re-evaluate Assessment & Plan (12/15/2022 9:23 AM GAMB CUTTER): Probably multifactorial. Check labs and followup to re-evaluate Assessment & Plan (12/10/2021 6:26 PM GAMB CUTTER): Probably multifactorial. Check labs and followup to re-evaluate Assessment & Plan (06/04/2021 8:40 AM CDT): Probably multifactorial. Check labs and followup to re-evaluate Mixed hyperlipidemia 06/04/2021 Assessment & Plan (06/20/2024 5:27 PM CDT): Encouraged patient to follow low fat/low chol diet like the Mediterranean diet. Increase good fats in the diet. Increase exercise. Monitor labs as needed. Assessment & Plan (12/31/2023 2:59 PM GAMB CUTTER): Encouraged patient to follow low fat/low chol diet like the Mediterranean diet. Increase good fats in the diet. Increase exercise. Monitor labs as needed. Assessment & Plan (12/15/2022 9:23 AM GAMB CUTTER): Encouraged patient to follow low fat/low chol diet like the Mediterranean diet. Increase good fats in the diet. Increase exercise. Monitor labs as needed. Assessment & Plan (12/10/2021 6:26 PM GAMB CUTTER): Encouraged patient to follow fat/low chol diet [...] prefers to see Dr. Erik billings at [facility]. Assessment & Plan (07/07/2019 10:26 [...] Flonase Assessment & Plan (12/31/2023 3:01 PM GAMB CUTTER): Continue with allergy regimen Assessment & Plan (06/04/2021 6:42 AM CDT): Stable with current otc regimen Assessment & Plan (12/01/2020 8:27 AM GAMB CUTTER): Continue otc prn Assessment & Plan (07/07/2019 [...] & Plan (06/20/2024 5:27 PM CDT): Continue [place] 60 mg. Monitor labs. Assessment & Plan (12/31/2023 2:59 PM GAMB CUTTER): Continue levothyroxine. Monitor labs. Assessment & Plan (06/15/2023 10:22 PM CDT): Continue levothyroxine. Monitor labs. Assessment & Plan (12/15/2022 9:23 AM GAMB CUTTER): Continue levothyroxine. Monitor labs. Assessment & Plan (12/10/2021 6:23 PM GAMB CUTTER): Continue levothyroxine. Monitor labs. Assessment & Plan (06/04/2021 6:41 AM CDT): Continue levothyroxine. Monitor labs. Assessment & Plan (12/01/2020 8:27 AM GAMB CUTTER): Check labs. Continue [place] Assessment & Plan (04/28/2020 8:30 AM CDT): Due to check labs. Continue replacement Assessment & Plan (11/26/2019 9:13 AM GAMB CUTTER): Continue replacement Assessment & Plan (07/07/2019 10:25 AM CDT): Stable. Continue replacement Assessment & Plan (05/22/2019 8:11 AM CDT): Continue with the [place]. Check the labs prn Hypogonadism in male 07/03/2018 Assessment & Plan (06/20/2024 8:58 AM CDT): Continue with urology for testosterone injections Assessment & Plan (12/31/2023 2:59 PM GAMB CUTTER): Continue testosterone supplement per Urology Assessment & Plan (12/15/2022 9:23 AM GAMB CUTTER): Continue per Urology for management of his hypogonadism and testosterone replacement Assessment & Plan (12/10/2021 6:23 PM GAMB CUTTER): Continue Testosterone replacement managed by Urology Assessment & Plan (06/04/2021 6:41 AM CDT): Continue testosterone injections per Urology Assessment & Plan (12/01/2020 10:32 AM GAMB CUTTER): Managed by Urology Assessment & Plan (04/28/2020 8:30 AM CDT): Managed by Urology Assessment & Plan (11/26/2019 9:12 AM GAMB CUTTER): Continue the replacement Assessment & Plan (07/07/2019 [...] important Assessment & Plan (12/31/2023 3:02 PM GAMB CUTTER): Stable with Wellbutrin and Lexapro Assessment & [...] time. Assessment & Plan (12/15/2022 9:23 AM GAMB CUTTER): Continue Wellbutrin and Lexapro Assessment & Plan (12/10/2021 6:22 PM GAMB CUTTER): Patient is having increased depression sxs. He denies any suicidal or homocidal thoughts. Continue LExapro 20 Increase WellbutrinXL 300mg He is to call if he notes increase in sxs or if his sxs don't respond to the dose increase. Assessment & Plan (06/04/2021 6:42 AM CDT): Stable with wellbutrin and lexapro Assessment & Plan (12/01/2020 8:27 AM GAMB CUTTER): Continue lexapro and Wellbutrin Assessment & Plan [...] understanding. Assessment & Plan (11/26/2019 9:18 AM GAMB CUTTER): Stable with the Lexapro. Assessment & Plan [...] 02/17/20 Assessment & Plan (12/31/2023 3:02 PM GAMB CUTTER): Discussed the patient's BMI. The BMI is [...] amounts of the triamcinolone with Lamisil available cegw-mea-cvtxidi to use in the area until resolved. Stressed the importance of keeping the area clean and dry may even use a powder if needed. Call if symptoms worsen or do not resolve BMI 31.0-31.9,adult 12/15/2022 06/20/20 Assessment & Plan (02/17/2024 2:56 PM CDT): Weight/BMI is in healthy range. Continue healthy lifestyle to maintain. Assessment & Plan (12/15/2022 8:31 AM GAMB CUTTER): Discussed the patient's BMI. The BMI is above average. BMI management plan is completed. BMI Follow-up includes: nutrition counseling, exercise counseling and education provided. Obesity (BMI 30-39.9) 12/10/20212022 Assessment & Plan (12/15/2022 9:24 AM GAMB CUTTER): Discussed the patient's BMI. The BMI is above average. BMI management plan is completed. BMI Follow-up includes: nutrition counseling, exercise counseling and education provided. Assessment & Plan (12/10/2021 8:11 AM GAMB CUTTER): Obesity is unchanged. Discussed the patient's BMI. The BMI is above average. BMI management plan is completed. BMI Follow-up includes: nutrition counseling, exercise counseling and education provided. BMI 33.0-33.9,adult 12/10/2021 12/15/19 Assessment & Plan (12/10/2021 8:12 AM GAMB CUTTER): Obesity is unchanged. Discussed the patient's BMI. The BMI is above average. BMI management plan is completed. BMI Follow-up includes: nutrition counseling, exercise counseling and education provided. Prostate cancer screening 12/10/2021 Assessment & Plan (12/10/2021 6:26 PM GAMB CUTTER): Check labs Arthralgia 12/10/2021 06/20/2024 Assessment & Plan (12/10/2021 6:27 PM GAMB CUTTER): This is a significant, separately identifiable problem that was evaluated and managed on the same day as the wellness exam Patient is noting increased joint pain. Mother and sister both have RA. Will check labs and determine followup pending results. Acute non-recurrent frontal sinusitis 12/10/2021 12/15/2022 Assessment & Plan (12/10/2021 6:29 PM GAMB CUTTER): This is a significant, separately identifiable problem [...] 06/15/2023 Assessment & Plan (12/15/2022 9:24 AM GAMB CUTTER): Check labs Assessment & Plan (12/10/2021 6:26 PM GAMB CUTTER): Check labs Assessment & Plan (06/04/2021 8:39 AM CDT): Check labs BMI 34.0-34.9,adult 12/01/2020 06/04/20 21 Assessment & Plan (12/01/2020 8:03 AM GAMB CUTTER): Obesity is unchanged. Discussed the patient's BMI. The BMI is above average. BMI management plan is completed. BMI Follow-up includes: nutrition counseling, exercise counseling and education provided. Obesity (BMI 30-39.9) 12/01/20202020 Assessment & Plan (12/01/2020 8:03 AM GAMB CUTTER): Obesity is unchanged. Discussed the patient's BMI. The BMI is above average. BMI management plan is completed. BMI Follow-up includes: nutrition counseling, exercise counseling and education provided. Annual physical exam 11/28/2020 021 Assessment & Plan (12/01/2020 8:28 AM GAMB CUTTER): Encouraged healthy lifestyle, good nutrition and exercise. [...] 11/26/1912/31/2023 Assessment & Plan (12/10/2021 6:26 PM GAMB CUTTER): Bp is elevated today but he is on cold medication. Will have him start the Augmentin and stop all D products. He is to take his bp at work in 1 week to determine control. Assessment & Plan (12/01/2020 8:27 AM GAMB CUTTER): Stable without medication Assessment & Plan (11/26/2019 9:14 AM GAMB CUTTER): Pt to call with readings to see [...] provided. Assessment & Plan (11/26/2019 9:13 AM GAMB CUTTER): Obesity is unchanged. Discussed the patient's BMI. [...] Encounters Date Type Department Care Team Description 12/17/2024 Telephone [facility] Family Medicine [address] [place] [address] Tamiko Solitario PA 11/26/2024 4:30 PM GAMB CUTTER Office Visit [facility] Care at [address] [address] Jermaine Causey NP Acute maxillary [...] Father Bharat Depression Father Bharat Diabetes Father Bhraat Heart disease Father Bharat Hyperlipidemia Father Bharat [...] on file Legal Sex Male 8:44 PM GAMB CUTTER Gender Identity Male 08/04/2021 1:13 PM CDT Sexual Orientation Not on file 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 Not on file Not on file Obstetrics History Last Filed Vital Signs Vital Sign Reading Time Taken Comments Blood Pressure 145/89 11/26/2024 5:00 PM GAMB CUTTER Pulse 82 11/26/2024 5:00 PM GAMB CUTTER Temperature 36.6 C (97.9 F) 11/26/2024 5:00 PM GAMB CUTTER Respiratory Rate 18 11/26/2024 5:00 PM GAMB CUTTER Oxygen Saturation 99% 11/26/2024 5:00 PM GAMB CUTTER Inhaled Oxygen Concentration - - Weight 104.9 kg (231 lb 3.2 oz) 11/26/2024 5:00 PM GAMB CUTTER Height 180.3 cm (5' 10.98 ) 11/26/2024 5:[address] Body Mass Index 32.26 11/26/2024 5:00 PM GAMB CUTTER Plan of Treatment Health Maintenance Due Date Last Done Comments Hepatitis C Screening 1963 Hepatitis B Screening 1981 Pneumococcal vaccine <65 (1 of 2 - PCV) 1982 Prostate Cancer Screening-PSA 01/01/2024 12/31/2021, 10/20/2018 Covid-19 Vaccine (2023-2 5 season) 2024 09/09/2022, 09/08/2022, 08/16/2021, Additional history exists Influenza Vaccine (#1) 2024 , 09/28/2022, 08/16/2021, Additional history exists Regular Well Visit/Exam 18-64 12/21/2024, 12/15/2022, 12/10/2021, Additional history exists Colon Cancer Screening-Colonoscopy 01/02/2025 01/03/2020 Depression Screening 06/20/2025 06/20/2024, 06/20/2024, 02/17/2024, Additional history exists DTaP/Tdap/Td Vaccine (2 - Td or Tdap) 10/05/2028 10/05/2018 Colon Cancer Screening-CT Colonography Discontinued 01/03/2020 Colon Cancer Screening-DNA Stool Discontinued 01/03/20 20 Colon Cancer Screening-FIT Discontinued 01/03/2020 Colon Cancer Screening-Sigmoidoscopy Discontinued 01/03/2020 Zoster Vaccine Completed 03/14/2021, 10/01/2020 Procedures Procedure Name Priority Date/Time Associated Diagnosis Comments PSA SCREEN Routine 12/31/2021 8:09 AM GAMB CUTTER COLONOSCOPY Routine 01/03/2020 from Last 3 Months or Most Recently Relevant to Health Maintenance Results * PSA screen (12/31/2021 8:09 AM GAMB CUTTER) PSA 1.3 0.0 - 4.0 ng/mL [facility] - 01 Comment: Sergio ECLIA methodology. According to the [employer], Serum PSA should decrease and [...] absence of malignant disease. 12/31/2021 8:09 AM GAMB CUTTER 12/31/2021 Narrative [facility] - 01/01/2022 4:11 PM GAMB CUTTER Performed at: - [address] [id number] Shake Out Worker: Gerardo Lundberg PhD, Phone: [phone] Tamiko RAMSEY LAB BLOOD ORDERABLES Final Result [facility] - 01 * Colonoscopy (01/03/2020) Anatomical Region Laterality Modality Other Narrative 01/03/2020 Dr. Emilio Espinal's in [place]. Negative, but plan to repeat in 5 years. Historical Provider MD ENDOSCOPY PROCEDURES Hetal l Result from Last 3 Months or Most Recently Relevant to Health Maintenance Insurance [employer] [facility] Care Teams Exhaust Equipment Operator Relationship Specialty Start Date End Date Tamiko Solitario PA [address] [facility] [address] [place] [address] PCP - General Internal Medicine 02/01/19
--- OUTSIDE RECORDS SUMMARY | 2024-12-17 15:49 | XMS_ITS | Encounter Summary ---
Author Organization [facility] Address [address] [place] [address] Care Team Providers Care Divider Operator Name Role Phone Tamiko Solitario Primary Care Provider +1- [phone] Encounter Details Date Type Department Care Team (Late st Contact Info) Description 12/17/2024 Telephone [facility] Family Medicine [address] [place] [address] Tamiko Solitario PA [address] [place] [address] Social History Tobacco Use Types Packs/Day Years Used Date Smoking Tobacco: Never Smokeless Tobacco: Never Alcohol Use Standard Drinks/Week Comments Never 0 [...] on file Legal Sex Male 8:44 PM REPAIR SUPERVISOR Gender Identity Male 08/04/2021 1:13 PM CDT Sexual Orientation Not on file 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 Discharged on Oxycodone, APAP, and Zofran as needed. See Attached Notes Staff will f/u with pt IR SUPERVISOR documented in this encounter Plan of Treatment Not on file documented as of this encounter Visit Diagnoses Not on filedocumented in this encounter Care Teams Divider Operator Relationship Specialty Start Date End Date Tamiko Solitario PA [address] [facility] [address] [place] [address] PCP - General Internal Medicine 02/01/19 documented as of this encounter
--- OUTSIDE RECORDS SUMMARY | 2024-12-17 15:49 | XMS_ITS | Referral Summary ---
Author Organization [facility] [address] [facility] Address [address] [place] [address] Care Team Providers Care Spiral Spring Winder Name Role Phone Tamiko Solitario Primary Care Provider [phone] Encounters Date Type Department Care Team Description 12/17/2024 Telephone [facility] [address] [facility] [address] [place] [address] Tamiko Solitario PA 11/26/2024 4:30 PM WEIGHER AND MIXER Office Visit [facility] Care at [address] [address] Jermaine Causey NP Acute maxillary [...] nostril daily 1 each 3 Active omega 9-ypq-fbl-fish oil 1,000 mg (120 mg-180 mg) capsule Active glucosam-navid- vac0-L-nkwn-melanie sw 750 mg-644 mg- 30 mg-1 mg tablet Take by mouth Active calcium vutm-A1-mjhacn ium glo 133 mg calcium -133 unit-67 [...] THE MORNING 90 tablet 1 4 Active [place] Thyroid 60 mg tablet TAKE 1 TABLET [...] a day for 7 days 14 tablet 12/03/19 25 Active Problems Problem Noted Date Diagnosed Date Diabetes mellitus screening 06/20/2024 Assessment & Plan (06/20/2024 5:27 PM CDT): Check labs Elevated hemoglobin (CMS/HCC) 12/31/2023 Assessment & Plan (06/20/2024 5:27 PM CDT): Elevated hemoglobin. Recheck labs. Maybe secondary to his testosterone Assessment & Plan (12/31/2023 3:04 PM WEIGHER AND MIXER): Patient has elevated hemoglobin. Check iron indices. [...] maintain. Assessment & Plan (12/31/2023 3:02 PM WEIGHER AND MIXER): Discussed the patient's BMI. The BMI is [...] screenings. Assessment & Plan (12/31/2023 2:58 PM WEIGHER AND MIXER): Encouraged healthy lifestyle, good nutrition and exercise. Encouraged Calcium and Vitamin D and weight bearing exercise for bone health. Reviewed immunizations Reviewed age appropirate screenings. Assessment & Plan (12/15/2022 9:24 AM WEIGHER AND MIXER): Encouraged healthy lifestyle, good nutrition and exercise. Encouraged Calcium and Vitamin D and weight bearing exercise for bone health. Reviewed immunizations Reviewed age appropirate screenings. Assessment & Plan (12/10/2021 6:28 PM WEIGHER AND MIXER): Encouraged healthy lifestyle, good nutrition and exercise. [...] re-evaluate Assessment & Plan (12/15/2022 9:23 AM WEIGHER AND MIXER): Probably multifactorial. Check labs and followup to re-evaluate Assessment & Plan (12/10/2021 6:26 PM WEIGHER AND MIXER): Probably multifactorial. Check labs and followup to re-evaluate Assessment & Plan (06/04/2021 8:40 AM CDT): Probably multifactorial. Check labs and followup to re-evaluate Mixed hyperlipidemia 06/04/2021 Assessment & Plan (06/20/2024 5:27 PM CDT): Encouraged patient to follow low fat/low chol diet like the Mediterranean diet. Increase good fats in the diet. Increase exercise. Monitor labs as needed. Assessment & Plan (12/31/2023 2:59 PM WEIGHER AND MIXER): Encouraged patient to follow low fat/low chol diet like the Mediterranean diet. Increase good fats in the diet. Increase exercise. Monitor labs as needed. Assessment & Plan (12/15/2022 9:23 AM WEIGHER AND MIXER): Encouraged patient to follow low fat/low chol diet like the Mediterranean diet. Increase good fats in the diet. Increase exercise. Monitor labs as needed. Assessment & Plan (12/10/2021 6:26 PM WEIGHER AND MIXER): Encouraged patient to follow fat/low chol diet [...] prefers to see Dr. Erik selby at [facility]. Assessment & Plan (07/07/2019 10:26 AM [...] Flonase Assessment & Plan (12/31/2023 3:01 PM WEIGHER AND MIXER): Continue with allergy regimen Assessment & Plan (06/04/2021 6:42 AM CDT): Stable with current otc regimen Assessment & Plan (12/01/2020 8:27 AM WEIGHER AND MIXER): Continue otc prn Assessment & Plan (07/07/2019 [...] & Plan (06/20/2024 5:27 PM CDT): Continue Bismarck 60 mg. Monitor labs. Assessment & Plan (12/31/2023 2:59 PM WEIGHER AND MIXER): Continue levothyroxine. Monitor labs. Assessment & Plan (06/15/2023 10:22 PM CDT): Continue levothyroxine. Monitor labs. Assessment & Plan (12/15/2022 9:23 AM WEIGHER AND MIXER): Continue levothyroxine. Monitor labs. Assessment & Plan (12/10/2021 6:23 PM WEIGHER AND MIXER): Continue levothyroxine. Monitor labs. Assessment & Plan (06/04/2021 6:41 AM CDT): Continue levothyroxine. Monitor labs. Assessment & Plan (12/01/2020 8:27 AM WEIGHER AND MIXER): Check labs. Continue B[place]ck Assessment & Plan (04/28/2020 8:30 AM CDT): Due to check labs. Continue replacement Assessment & Plan (11/26/2019 9:13 AM WEIGHER AND MIXER): Continue replacement Assessment & Plan (07/07/2019 10:25 AM CDT): Stable. Continue replacement Assessment & Plan (05/22/2019 8:11 AM CDT): Continue with the Bismarck. Check the labs prn Hypogonadism in male 07/03/2018 Assessment & Plan (06/20/2024 8:58 AM CDT): Continue with urology for testosterone injections Assessment & Plan (12/31/2023 2:59 PM WEIGHER AND MIXER): Continue testosterone supplement per Urology Assessment & Plan (12/15/2022 9:23 AM WEIGHER AND MIXER): Continue per Urology for management of his hypogonadism and testosterone replacement Assessment & Plan (12/10/2021 6:23 PM WEIGHER AND MIXER): Continue Testosterone replacement managed by Urology Assessment & Plan (06/04/2021 6:41 AM CDT): Continue testosterone injections per Urology Assessment & Plan (12/01/2020 10:32 AM WEIGHER AND MIXER): Managed by Urology Assessment & Plan (04/28/2020 8:30 AM CDT): Managed by Urology Assessment & Plan (11/26/2019 9:12 AM WEIGHER AND MIXER): Continue the replacement Assessment & Plan (07/07/2019 [...] important Assessment & Plan (12/31/2023 3:02 PM WEIGHER AND MIXER): Stable with Wellbutrin and Lexapro Assessment & [...] time. Assessment & Plan (12/15/2022 9:23 AM WEIGHER AND MIXER): Continue Wellbutrin and Lexapro Assessment & Plan (12/10/2021 6:22 PM WEIGHER AND MIXER): Patient is having increased depression sxs. He denies any suicidal or homocidal thoughts. Continue LExapro 20 Increase WellbutrinXL 300mg He is to call if he notes increase in sxs or if his sxs don't respond to the dose increase. Assessment & Plan (06/04/2021 6:42 AM CDT): Stable with wellbutrin and lexapro Assessment & Plan (12/01/2020 8:27 AM WEIGHER AND MIXER): Continue lexapro and Wellbutrin Assessment & Plan [...] understanding. Assessment & Plan (11/26/2019 9:18 AM WEIGHER AND MIXER): Stable with the Lexapro. Assessment & Plan [...] 02/17/20 Assessment & Plan (12/31/2023 3:02 PM WEIGHER AND MIXER): Discussed the patient's BMI. The BMI is [...] amounts of the triamcinolone with Lamisil available [id number] to use in the area until resolved. Stressed the importance of keeping the area clean and dry may even use a powder if needed. Call if symptoms worsen or do not resolve BMI 31.0-31.9,adult 12/15/2022 06/20/20 Assessment & Plan (02/17/2024 2:56 PM CDT): Weight/BMI is in healthy range. Continue healthy lifestyle to maintain. Assessment & Plan (12/15/2022 8:31 AM WEIGHER AND MIXER): Discussed the patient's BMI. The BMI is above average. BMI management plan is completed. BMI Follow-up includes: nutrition counseling, exercise counseling and education provided. Obesity (BMI 30-39.9) 12/10/20212022 Assessment & Plan (12/15/2022 9:24 AM WEIGHER AND MIXER): Discussed the patient's BMI. The BMI is above average. BMI management plan is completed. BMI Follow-up includes: nutrition counseling, exercise counseling and education provided. Assessment & Plan (12/10/2021 8:11 AM WEIGHER AND MIXER): Obesity is unchanged. Discussed the patient's BMI. The BMI is above average. BMI management plan is completed. BMI Follow-up includes: nutrition counseling, exercise counseling and education provided. BMI 33.0-33.9,adult 12/10/2021 12/15/19 Assessment & Plan (12/10/2021 8:12 AM WEIGHER AND MIXER): Obesity is unchanged. Discussed the patient's BMI. The BMI is above average. BMI management plan is completed. BMI Follow-up includes: nutrition counseling, exercise counseling and education provided. Prostate cancer screening 12/10/2021 Assessment & Plan (12/10/2021 6:26 PM WEIGHER AND MIXER): Check labs Arthralgia 12/10/2021 06/20/2024 Assessment & Plan (12/10/2021 6:27 PM WEIGHER AND MIXER): This is a significant, separately identifiable problem that was evaluated and managed on the same day as the wellness exam Patient is noting increased joint pain. Mother and sister both have RA. Will check labs and determine followup pending results. Acute non-recurrent frontal sinusitis 12/10/2021 12/15/2022 Assessment & Plan (12/10/2021 6:29 PM WEIGHER AND MIXER): This is a significant, separately identifiable problem [...] 06/15/2023 Assessment & Plan (12/15/2022 9:24 AM WEIGHER AND MIXER): Check labs Assessment & Plan (12/10/2021 6:26 PM WEIGHER AND MIXER): Check labs Assessment & Plan (06/04/2021 8:39 AM CDT): Check labs BMI 34.0-34.9,adult 12/01/2020 06/04/20 Assessment & Plan (12/01/2020 8:03 AM WEIGHER AND MIXER): Obesity is unchanged. Discussed the patient's BMI. The BMI is above average. BMI management plan is completed. BMI Follow-up includes: nutrition counseling, exercise counseling and education provided. Obesity (BMI 30-39.9) 12/01/20202020 Assessment & Plan (12/01/2020 8:03 AM WEIGHER AND MIXER): Obesity is unchanged. Discussed the patient's BMI. The BMI is above average. BMI management plan is completed. BMI Follow-up includes: nutrition counseling, exercise counseling and education provided. Annual physical exam 11/28/2020 021 Assessment & Plan (12/01/2020 8:28 AM WEIGHER AND MIXER): Encouraged healthy lifestyle, good nutrition and exercise. [...] 11/26/1912/31/2023 Assessment & Plan (12/10/2021 6:26 PM WEIGHER AND MIXER): Bp is elevated today but he is on cold medication. Will have him start the Augmentin and stop all D products. He is to take his bp at work in 1 week to determine control. Assessment & Plan (12/01/2020 8:27 AM WEIGHER AND MIXER): Stable without medication Assessment & Plan (11/26/2019 9:14 AM WEIGHER AND MIXER): Pt to call with readings to see [...] provided. Assessment & Plan (11/26/2019 9:13 AM WEIGHER AND MIXER): Obesity is unchanged. Discussed the patient's BMI. 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 Not on file Not on file Last Filed Vital Signs Vital Sign Reading Time Taken Comments Blood Pressure 145/89 11/26/2024 5:00 PM WEIGHER AND MIXER Pulse 82 11/26/2024 5:00 PM WEIGHER AND MIXER Temperature 36.6 C (97.9 F) 11/26/2024 5:00 PM WEIGHER AND MIXER Respiratory Rate 18 11/26/2024 5:00 PM WEIGHER AND MIXER Oxygen Saturation 99% 11/26/2024 5:00 PM WEIGHER AND MIXER Inhaled Oxygen Concentration - - Weight 104.9 kg (231 lb 3.2 oz) 11/26/2024 5:00 PM WEIGHER AND MIXER Height 180.3 cm (5' 10.98 ) 11/26/2024 5:[address] Body Mass Index 32.26 11/26/2024 5:00 PM WEIGHER AND MIXER Plan of Treatment Not on file Procedures Procedure Name Priority Date/Time Associated Diagnosis Comments PSA SCREEN Routine 12/31/2021 8:09 AM WEIGHER AND MIXER COLONOSCOPY Routine 01/03/2020 from Last 3 Months or Most Recently Relevant to Health Maintenance Results * PSA screen (12/31/2021 8:09 AM WEIGHER AND MIXER) PSA 1.3 0.0 - 4.0 ng/mL [facility] - 01 Comment: Sergio ECLIA methodology. According to the [place] [employer], Serum PSA should decrease and [...] absence of malignant disease. 12/31/2021 8:09 AM WEIGHER AND MIXER 12/31/2021 Narrative [facility] - 01/01/2022 4:11 PM WEIGHER AND MIXER Performed at: 01 - [address] [id number] Race Car Mechanic: Gerardo Lundberg PhD, Phone: [phone] Tamiko RAMSEY LAB BLOOD ORDERABLES Final Result [facility] - 01 * Colonoscopy (01/03/2020) Anatomical Region Laterality Modality Other Narrative 01/03/2020 Dr. Emilio Pachecos in [place]. Negative, but plan to repeat in 5 years. Historical Provider MD ENDOSCOPY PROCEDURES Hetal l Result from Last 3 Months or Most Recently Relevant to Health Maintenance Insurance [facility] Care Teams Spiral Spring Winder Relationship Specialty Start Date End Date Tamiko Solitario PA [address] [place] [address] PCP - General Internal Medicine 02/01/19
--- OUTSIDE RECORDS SUMMARY | 2024-12-17 15:49 | XMS_ITS | Continuity of Care Document ---
Author Organization [facility] Address [address] [place] [address] Phone Care Team Providers Care Direct Marketing Manager Name Role Phone Abad De La Fuente MD Unavailable Unavailable Advance Directives Directive Yes / No Effective Date File Name No Information Encounters Encounter Description Practice Location Reason(s) For Visit Diagnoses Date Provider Providers Copied on Encounter [facility], [address], [place], [place], [id number], tel:[phone] [facility] No Information 2 Sudhakar Melgoza. [address], [address], [place], [place], [id number] , [place]. tel:[phone] Referring Provider: Rah Asif, [address] [place] [address] [address], [place], [address]. tel:[phone] Family History Family Member Type Diagnosis Age At Onset No Information Payers Payer name Insurance type Covered constitution party ID Authoriza tion(s) No Information Social [...]
== END 2024-12-17 13:43 | disposition home or self-care (01) ==
LOC: ANHLAB 13:44
PROVIDERS: PCP Physician Assistant; Visit Provider Urology
DX: N20.1 Calculus of ureter (principal); Z01.818 Encounter for other preprocedural examination
CPT/HCPCS: 36415; 85610; 85730; 87086

== ENCOUNTER 2024-12-21 01:09 | Day surgery (SDC) | payer OTHER, SELFPAY ==
[2024-12-17 13:09] VITALS: BMI 33.0
--- NOTE | 2024-12-17 13:15 | PC.NURSE ---
Report to the Outpatient Waiting Room, entrance under the green pavilion located off [facility], at time _0600_ on date _[id number]_. Planned Procedure Time: _0730_.? Time changes happen often and if your time is changed the preop area will call you the afternoon before. - You and your visitor will be asked to self-screen and do not enter if you have any COVID symptoms. Please call surgeon if you need to reschedule. - A mask is optional within the hospital at this time. Patients may have clear liquids (water, carbonated beverages, clear teas, apple juice) until 3 hours prior to surgery with a maximum of 20 ounces. - No food from midnight until time of surgery and no smoking, or chewing tobacco (or any form of nicotine). No chewing gum, candy or mints. Take only the following medications with a SIP of water on the morning of surgery: __Thyroid, Escitalopram and Bupropion DO NOT STOP ANY OF YOUR OTHER PRESCRIPTION MEDICATIONS PRIOR TO SURGERY EXCEPT THE FOLLOWING Hold all vitamins and supplements for 3 days per anesthesiologist. Medications to discontinue per physician ___Patient stopping Meloxicam today per Michelle's instruction.____ Date to take last dose Please no make-up, nail danish, hairspray, perfume, deodorant, or body powder the day of surgery.? No jewelry (including any body piercings) or valuables the day of surgery, leave them at home.? Please take a shower or bath the night before, or the morning of, surgery with an antibacterial soap.? Wear comfortable, loose fitting clothing. - Jewelry must be removed prior to entering the operating room.? Rings and piercings that are not removed may be cut off. - The hospital will not accept responsibility for valuables.? - Please leave all valuables, including medications, at home the day of surgery. If you are going home after surgery, a licensed combine driver must drive you home.? - NO public transportation without another adult if you receive anesthesia. - We recommend that an adult stay with you for 24 hours following discharge. - We also recommend that you do not drive, make important decision, drink alcoholic beverages, or take any drugs that were not prescribed by your health care provider for at least 24 hours after your discharge time. Follow any additional instructions given to you from your surgeon. Telephone instructions given to _Tim__and asked if any additional questions and then verbalized understanding. Patient advised to call surgeon office or pre surgery nurse liaison [phone] if any additional questions.
[2024-12-21] VITALS (8 sets, daily range): BP systolic 122–161; BP diastolic 70–97; PULSE 88–96; RESP 16–20; TEMP 36.4–37.1; O2SAT 98–100; BMI 32.8
[2024-12-21] MEDS: LACTATED RINGERS 1,000 ML 30 ML IV CONT (06:35)
--- NOTE | 2024-12-21 07:00 | WPDANESEPPF ---
Anes - Initial Pre Proc Eval Procedure: Operation Date: 12/21/24 07:30 Proposed Procedures p Left Extracorporeal Shock Wave Lithotripsy - Umang Morgan MD Date/Time: 12/21/24 07:00 Surgeon: Umang Morgan MD Pre Op Diagnosis: Left Ureteral Stone Patient Data Age: 59 Gender: M Height: 1.78 m Weight: 103.6 kg Allergies Allergy/AdvReac Type Severity Reaction Status Date / Time levothyroxine sodium (From Allergy Severe Hives Verified 12/21/24 06:45 Levothroid) Home Medications ?Medication ?Instructions ?Recorded ?Confirmed ?Type escitalopram oxalate 20 mg tablet 20 mg PO DAILY 12/28/19 12/21/24 History fexofenadine 60 mg tablet (Herlinda 60 mg PO Q12H 12/28/19 12/21/24 History Allergy) meloxicam 15 mg tablet 15 mg PO DAILY 12/28/19 12/21/24 History testosterone cypionate 200 mg/mL 200 mg IM WEEKLY 12/28/19 12/17/24 History intramuscular oil thyroid (pork) 60 mg tablet 60 mg PO DAILY 12/28/19 12/21/24 History ([place] Thyroid) vitamin B complex (Super B-50 1 cap PO DAILY 12/28/19 12/21/24 History Complex capsule) antiarthritic combination no.2 900 900 mg PO DAILY 08/11/22 12/21/24 History mg tablet (glucosamine-chondroitin) bupropion HCl 300 mg 24 hr tablet, 300 mg PO QAM 08/11/22 12/21/24 History extended release caffeine 200 mg tablet 200 mg PO BID PRN drowsiness 08/11/22 12/21/24 History cholecalciferol (vitamin D3) 125 125 mcg PO DAILY 08/11/22 12/21/24 History mcg (5,000 unit) capsule omega-3 fatty acids-fish oil 360 1 cap PO DAILY 08/11/22 12/21/24 History mg-1,200 mg capsule (Fish Oil) acetaminophen 500 mg tablet 1,000 mg (2 x 500 mg) PO TID PRN 12/14/24 12/17/24 Rx (Tylenol Extra Strength) pain #30 tabs ondansetron 4 mg disintegrating 4 mg PO Q8H PRN nausea and 12/14/24 12/21/24 Rx tablet vomiting #20 tabs oxycodone 5 mg tablet 5 mg PO Q4H PRN pain 3 days #18 12/14/24 12/17/24 Rx tabs Patient hx anesthesia problems: none Family hx anesthesia problems: none Results Review: All pre-operative results and documents have been reviewed as part of the pre-operative evaluation. [facility] Past Medical History Medical History Tear of left rotator cuff History of kidney stones Thyroid disorder Hypertension Arthritis Asthma Allergies Adenomatous colon polyp Renal lithiasis Depression Hypothyroidism JULES (obstructive sleep apnea) Surgical History Surgical History History of elbow surgery H/O lithotripsy Hx of colonoscopy Family History Family History Mother Cerebrovascular accident Family history of kidney stones Asthma Depression Thyroid disorder Father Family history of diabetes mellitus in first degree relative Family history of primary malignant neoplasm of liver Family history of malignant neoplasm of kidney Diabetes mellitus Hypertension Depression Heart disease Cerebrovascular accident Sibling Depression Social History Social History Smoking status: Never smoker Alcohol intake: never Substance use: never Living arrangements: with family 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 Hypothyroidism, JULES but non tolerating CPAP. Informed Consent: The patient's anesthetic plan and its attendant risks and benefits were discussed with the patient/family/POA. Questions were solicited and answers provided to the satisfaction of the patient/family/POA.
--- NOTE | 2024-12-21 07:29 | SUR.PREOP ---
0728- Patient to CT with IV saline locked via wheelchair.
--- NOTE | 2024-12-21 08:07 | WPDHPUPDATE1 ---
History and Physical Update Update Date/Time: 12/21/24 08:07 History and Physical has been reviewed, including an updated exam of the patient. There are NO changes in the patient's condition. Risks, benefits, and alternatives have been discussed and questions answered. Patient agrees to proceed with procedure. STONE HAS MOVED OVER THE SACRAL AREA ON THE LEFT. IT IS NOT VISIBLE ON KUB. WILL PROCEED WITH CYSTOSCOPY, LEFT RETROGRADE, LEFT URETEROSCOPY WITH STONE EXTRACTION POSSIBLE LASER STENT PLACEMENT
[2024-12-21] MEDS: ceFAZolin 2 GM/D5W 50 ML 2 GM/50 ML BAG IVPB (09:04)
--- NOTE | 2024-12-21 09:31 | W.PM.PROC2 ---
Procedure Note - Detailed Date of Procedure 12/21/24 Pre-op Diagnosis Left Ureteral Stone Post-op Diagnosis Same Procedure Performed Cystoscopy, left retrograde pyelogram, left ureteroscopy with holmium laser, stone extraction, stent placement 4.8 Kosovan contour Surgeon Umang Morgan MD Anesthesia General Description of Procedure Patient was taken to the operative suite correctly identified. Once anesthesia was obtained was placed in dorsal lithotomy position and prepped draped usual sterile fashion. Twenty-two Kosovan scope was inserted the bladder. There were no tumors noted. The left ureteral orifice was cannulated with a guidewire. I dilated with an 8/10 dilator. Rigid ureteral scope was inserted stone was localized in the mid ureter. It was too large to retrieved in 1 piece. Using a 240 micron fiber we fragmented the stone. Large pieces were sent for analysis. Reinspection of the ureter revealed no residual stone. Pyelogram was then performed confirm placement of the stent. 4.8 Kosovan contour stent was then placed with the proximal end coiled in the renal pelvis and the distal in the bladder. Bladder was drained. 2% viscous lidocaine was inserted into the urethra patient is taken recovery room stable condition. He will follow-up in 1 week for stent removal. This completes dictation. Please send a copy of op note to the office. Estimated Blood Loss 0 Drains Yes Packing No Pathology Yes Complications No immediate complications Condition Stable Disposition PACU
== END 2024-12-21 11:14 | disposition home or self-care (01) ==
PROVIDERS: PCP Physician Assistant; Visit Provider Urology
PROC: (CPT 50590; principal; 2024-12-21 07:30)
DX: N20.1 Calculus of ureter (principal)
CPT/HCPCS: 52356; 74018; 74176; 74420; 82365; 88300; C1758; C1769; J0330; J0690; J1100; J2003; J2250; J2405; J2704; J3010; J7120; Q9966

== ENCOUNTER 2025-04-15 01:26 | Day surgery (SDC) | payer OTHER, SELFPAY ==
[2025-04-15 12:19] VITALS: BP 138/95; PULSE 86; RESP 18; TEMP 36.5; O2SAT 98
[2025-04-15] MEDS: LACTATED RINGERS 1,000 ML 30 ML IV CONT (12:28)
--- NOTE | 2025-04-15 12:50 | WPDANESEPPF ---
Anes - Initial Pre Proc Eval Procedure: Operation Date: 04/15/25 13:45 Proposed Procedures p Screening Colonoscopy - Mychal Jalloh MD Date/Time: 04/15/25 12:50 Surgeon: Mychal Jalloh MD Pre Op Diagnosis: Personal history of colon polyps, unspecified Patient Data Age: 59 Gender: M Height: 1.8 m Weight: 99.6 kg Last Vital Signs Temp 36.5 C 04/15/25 12:19 Pulse 86 04/15/25 12:19 Resp 18 04/15/25 12:19 BP 138/95 H 04/15/25 12:19 Pulse Ox 98 04/15/25 12:19 O2 Del Method Room Air 04/15/25 12:19 Allergies Allergy/AdvReac Type Severity Reaction Status Date / Time levothyroxine sodium (From Allergy Severe Hives Verified 04/15/25 12:18 Levothroid) Home Medications ?Medication ?Instructions ?Recorded ?Confirmed ?Type escitalopram oxalate 20 mg tablet 20 mg PO DAILY 12/28/19 03/29/25 History fexofenadine 60 mg tablet (Herlinda 60 mg PO Q12H 12/28/19 03/29/25 History Allergy) meloxicam 15 mg tablet 15 mg PO DAILY 12/28/19 03/29/25 History testosterone cypionate 200 mg/mL 200 mg IM WEEKLY 12/28/19 03/29/25 History intramuscular oil thyroid (pork) 60 mg tablet 60 mg PO DAILY 12/28/19 03/29/25 History ([place] Thyroid) vitamin B complex (Super B-50 1 cap PO DAILY 12/28/19 03/29/25 History Complex capsule) antiarthritic combination no.2 900 900 mg PO DAILY 08/11/22 03/29/25 History mg tablet (glucosamine-chondroitin) bupropion HCl 300 mg 24 hr tablet, 300 mg PO QAM 08/11/22 03/29/25 History extended release caffeine 200 mg tablet 200 mg PO BID PRN drowsiness 08/11/22 03/29/25 History cholecalciferol (vitamin D3) 125 125 mcg PO DAILY 08/11/22 03/29/25 History mcg (5,000 unit) capsule omega-3 fatty acids-fish oil 360 1 cap PO DAILY 08/11/22 03/29/25 History mg-1,200 mg capsule (Fish Oil) acetaminophen 500 mg tablet 1,000 mg (2 x 500 mg) PO TID PRN 12/14/24 03/29/25 Rx (Tylenol Extra Strength) pain #30 tabs ondansetron 4 mg disintegrating 4 mg PO Q8H PRN nausea and 12/14/24 03/29/25 Rx tablet vomiting #20 tabs Patient hx anesthesia problems: none Family hx anesthesia problems: none Results Review: All pre-operative results and documents have been reviewed as part of the pre-operative evaluation. [facility] Past Medical History Medical History Tear of left rotator cuff History of kidney stones Thyroid disorder Hypertension Arthritis Asthma Allergies Adenomatous colon polyp Renal lithiasis Depression Hypothyroidism JULES (obstructive sleep apnea) Surgical History Surgical History History of elbow surgery H/O lithotripsy Hx of colonoscopy Family History Family History Mother Cerebrovascular accident Family history of kidney stones Asthma Depression Thyroid disorder Father Family history of diabetes mellitus in first degree relative Family history of primary malignant neoplasm of liver Family history of malignant neoplasm of kidney Diabetes mellitus Hypertension Depression Heart disease Cerebrovascular accident Sibling Depression Social History Social History Smoking status: Never smoker Alcohol intake: never Substance use: never Substance use type: does not use Living arrangements: with family 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 Informed Consent: The patient's anesthetic plan and its attendant risks and benefits were discussed with the patient/family/POA. Questions were solicited and answers provided to the satisfaction of the patient/family/POA.
--- NOTE | 2025-04-15 14:11 | PM.IMHP ---
H&P: HPI History of Present Illness Date/Time: 04/15/25 14:11 Chief Complaint: History of colon polyps Narrative: The patient has a history of colonic polyps, the last colonoscopy was Review of Systems Review of Systems: All systems reviewed & are unremarkable except as noted in HPI and below PMFSH Past Medical History Medical History Tear of left rotator cuff History of kidney stones Thyroid disorder Hypertension Arthritis Asthma Allergies Adenomatous colon polyp Renal lithiasis Depression Hypothyroidism JULES (obstructive sleep apnea) Surgical History Surgical History History of elbow surgery H/O lithotripsy Hx of colonoscopy Family History Family History Mother Cerebrovascular accident Family history of kidney stones Asthma Depression Thyroid disorder Father Family history of diabetes mellitus in first degree relative Family history of primary malignant neoplasm of liver Family history of malignant neoplasm of kidney Diabetes mellitus Hypertension Depression Heart disease Cerebrovascular accident Sibling Depression Social History Social History Smoking status: Never smoker Alcohol intake: never Substance use: never Substance use type: does not use Living arrangements: with family 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- [employer] Spiritual care concerns: No Meds Home Medications and Allergies Home Medications ?Medication ?Instructions ?Recorded ?Confirmed ?Type escitalopram oxalate 20 mg tablet 20 mg PO DAILY 12/28/19 03/29/25 History fexofenadine 60 mg tablet (Herlinda 60 mg PO Q12H 12/28/19 03/29/25 History Allergy) meloxicam 15 mg tablet 15 mg PO DAILY 12/28/19 03/29/25 History testosterone cypionate 200 mg/mL 200 mg IM WEEKLY 12/28/19 03/29/25 History intramuscular oil thyroid (pork) 60 mg tablet 60 mg PO DAILY 12/28/19 03/29/25 History ([place] Thyroid) vitamin B complex (Super B-50 1 cap PO DAILY 12/28/19 03/29/25 History Complex capsule) antiarthritic combination no.2 900 900 mg PO DAILY 08/11/22 03/29/25 History mg tablet (glucosamine-chondroitin) bupropion HCl 300 mg 24 hr tablet, 300 mg PO QAM 08/11/22 03/29/25 History extended release caffeine 200 mg tablet 200 mg PO BID PRN drowsiness 08/11/22 03/29/25 History cholecalciferol (vitamin D3) 125 125 mcg PO DAILY 08/11/22 03/29/25 History mcg (5,000 unit) capsule omega-3 fatty acids-fish oil 360 1 cap PO DAILY 08/11/22 03/29/25 History mg-1,200 mg capsule (Fish Oil) acetaminophen 500 mg tablet 1,000 mg (2 x 500 mg) PO TID PRN 12/14/24 03/29/25 Rx (Tylenol Extra Strength) pain #30 tabs ondansetron 4 mg disintegrating 4 mg PO Q8H PRN nausea and 12/14/24 03/29/25 Rx tablet vomiting #20 tabs Allergies Allergy/AdvReac Type Severity Reaction Status Date / Time levothyroxine sodium (From Allergy Severe Hives Verified 04/15/25 12:18 Levothroid) Vital Signs Vital Signs - 24 hr 04/15/25 12:19 Temperature 97.7 F Pulse Rate 86 Respiratory Rate 18 Blood Pressure 138/95 H Pulse Oximetry 98 Oxygen Delivery Room Air Assessment and Plan Assessment and plan (1) History of colonic polyps: Code(s): Z86.0100 - Personal history of colon polyps, unspecified Status: Acute Assessment and Plan: The patient is deemed a good candidate for the procedure. Consent signed. Will proceed.
[2025-04-15] MEDS: SIMETHICONE ORAL SUSPENSION 20 MG/0.3 ML 30 ML BOTTLE 0.6 ML IRRIGATION (14:30)
[2025-04-15 14:39] VITALS: BP 98/67; PULSE 82; RESP 17; O2SAT 95
[2025-04-15 14:49] VITALS: BP 104/74; PULSE 80; RESP 23; O2SAT 95
[2025-04-15 14:59] VITALS: BP 122/83; PULSE 78; RESP 20; O2SAT 98
== END 2025-04-15 15:14 | disposition home or self-care (01) ==
PROVIDERS: PCP Physician Assistant; Referring Provider Physician Assistant; Visit Provider Internal Medicine Gastroenterology
PROC: 0DJD8ZZ Inspection of Lower Intestinal Tract, Via Natural or Artificial Opening Endoscopic (ICD-10-PCS; CPT 45378; principal; 2025-04-15 13:45)
DX: Z12.11 Encounter for screening for malignant neoplasm of colon (principal); Z86.0100 Personal history of colon polyps, unspecified; E66.9 Obesity, unspecified; Z68.30 Body mass index [BMI] 30.0-30.9, adult
CPT/HCPCS: 45378; J2003; J2704; J7120

== ENCOUNTER 2025-09-09 14:27 | Observation (INO) | payer OTHER, SELFPAY ==
--- NOTE | ~2025-09-09 | CT_ITS ---
EXAMINATION: CT abdomen pelvis wo con DATE: 09/09/2025 18:49 INDICATION: Right flank pain. History of kidney stones. TECHNIQUE: Computed tomography (CT) of the abdomen and pelvis was performed without intravenous contrast. Automated exposure control and iterative reconstruction technique were employed. The dose-length product was 394.09 mGy-cm. COMPARISON: CT dated 12/21/2024. FINDINGS: The lung bases do not show acute findings. No focal abnormalities of the liver and spleen. In the left kidney, a few small intrarenal calculi, one to 3 mm in size. No ureteric calculi or obstruction on the left side. On the right side, intrarenal calculi are noted measuring up to 8 mm in diameter. There is a 9 mm size calculus in the proximal right ureter at L2 level causing moderately significant right hydronephrosis. No bladder calculi are seen. IMPRESSION: 1. Limited noncontrast examination is not optimal for evaluation of solid viscera, neoplasms and vascular structures. 2. Bilateral intrarenal calculi as described above. 3. 9 mm size calculus in the proximal right ureter at the L2 level causing moderately significant right hydronephrosis. 4. Degenerative disc disease at L4-5 level. Reviewed, dictated and finalized at location T. O POOL SUPERVISOR IMPRESSION: 1. Limited noncontrast examination is not optimal for evaluation of solid visce ra, neoplasms and vascular structures. 2. Bilateral intrarenal calculi as described above. 3. 9 mm size calculus in the proximal right ureter at the L2 level causing mode rately significant right hydronephrosis. 4. Degenerative disc disease at L4-5 level.
--- NOTE | ~2025-09-09 | XR_ITS ---
EXAM/PROCEDURE: XR retrograde pyelo w/stent RT HISTORY: RIGHT SPECIAL COMPARISON: None available. Fluoroscopy time: 16.5 seconds Cumulative dose: 8.03 mGy FINDINGS: A right ureteral stent is present with partial filling of the dilated right collecting system consistent with hydronephrosis. No extravasation of contrast seen. IMPRESSION: As above. No radiologist present for this procedure. See also procedure/operative notes for complete evaluation. Reviewed, dictated and finalized at location A. NEYMAN OPERATOR ASSISTANT IMPRESSION: As above. No radiologist present for this procedure. See also procedure/operati ve notes for complete evaluation.
[2025-09-09 15:00] VITALS: BP 168/95; PULSE 109; RESP 18; TEMP 36.8; O2SAT 98
[2025-09-09 17:03] LABS: Hematocrit 48.3 % (42.0-52.0); Hemoglobin 16.2 g/dL (14.0-18.0); Immature Granulocyte Percent A 0.4 % (0-0.5); Lymphocytes Absolute Auto 1.64 K/mm3 (0.9-3.2); Mean Corpuscular HGB Conc 33.5 g/dl (32-36); Mean Corpuscular Hemoglobin 30.2 pg (26-34); Mean Corpuscular Volume 90.1 fl (80-100); Nucleated Red Blood Cells Absolute Auto 0.000 K/mm3 (0.0-0.012); Nucleated Red Blood Cells Perc 0.0 % (0.0-0.2); Platelet Count Result 301 k/mm3 (150-375); Red Blood Count 5.36 M/mm3 (4.6-6.20); White Blood Count 9.1 K/mm3 (4.5-10.0)
[2025-09-09 17:05] LABS: Add Urine Microscopic? YES; Appearance Urine Clear (Clear); Glucose Urine UA Negative (Negative); Leukocyte Esterase Ur 2+ LEU/UL (Negative); Nitrate Urine Positive (Negative); Non Pathogenic Casts 0-2; Specific Grav Ur 1.012 (1.001-1.035)
[2025-09-09 17:11] LABS: Alanine Aminotransferase 39 U/L (6-50); Albumin Level 4.6 g/dL (3.5-5.1); Alkaline Phosphatase 83 U/L (38-126); Anion Gap 8 mmol/L (4-12); Aspartate Amino Transferase 38 U/L (17-59); Bilirubin,Total 0.5 mg/dL (0.2-1.3); Blood Urea Nitrogen 20 mg/dL (9-20); Calcium 9.5 mg/dL (8.4-10.2); Carbon Dioxide 26 mmol/L (22-30); Chloride 103 mmol/L (98-107); Estimated CRCL calculation 76 ml/min; Estimated Glomerular Filt Rate > 60; Glucose 102 mg/dL (65-110); Lipase 126 U/L (23-300); Potassium 4.1 mmol/L (3.4-5.0); Sodium 137 mmol/L (137-145); Total Protein 7.3 g/dL (6.3-8.2)
[2025-09-09 17:22] VITALS: BP 168/102; PULSE 95; RESP 16; O2SAT 97
[2025-09-09] MEDS: oxyCODONE HCL (*CRX) 5 MG TAB IR PO ×2 (18:39→22:12)
--- NOTE | 2025-09-09 20:11 | ED.GENADULT ---
HPI - General Adult General Chief complaint: Urogenital-Male Stated complaint: RLQ pain into back. Hx of kidney stones Time Seen by Provider: 09/09/25 17:38 History of Present Illness HPI narrative: 59-year-old male presenting with right flank pain that radiates to his abdomen since this afternoon. Patient states he is a significant kidney stone history and that this instance feels the exact same as before. Denies nausea/vomiting, urinary complaints, GI complaints, or chest pain/shortness of breath. Related Data Home Medications ?Medication ?Instructions ?Recorded ?Confirmed ?Last Taken ?Type escitalopram oxalate 20 mg tablet 20 mg PO DAILY 12/28/19 09/09/25 09/08/25 History fexofenadine 60 mg tablet (Herlinda 180 mg PO DAILY 12/28/19 09/09/25 09/08/25 History Allergy) meloxicam 15 mg tablet 15 mg PO DAILY 12/28/19 09/09/25 09/08/25 History testosterone cypionate 200 mg/mL 100 mg IM .biweekly 12/28/19 09/09/25 09/06/25 History intramuscular oil thyroid (pork) 60 mg tablet 60 mg PO DAILY 12/28/19 09/09/25 09/08/25 History ([place] Thyroid) vitamin B complex (Super B-50 1 cap PO DAILY 12/28/19 09/09/25 09/08/25 History Complex capsule) antiarthritic combination no.2 900 900 mg PO DAILY 08/11/22 09/09/25 09/08/25 History mg tablet (glucosamine-chondroitin) bupropion HCl 300 mg 24 hr tablet, 300 mg PO QAM 08/11/22 09/09/25 09/08/25 History extended release caffeine 200 mg tablet 200 mg PO BID PRN drowsiness 08/11/22 09/09/25 09/08/25 History cholecalciferol (vitamin D3) 125 125 mcg PO DAILY 08/11/22 09/09/25 09/08/25 History mcg (5,000 unit) capsule omega-3 fatty acids-fish oil 360 1 cap PO DAILY 08/11/22 09/09/25 09/08/25 History mg-1,200 mg capsule (Fish Oil) calcium 333 mg-vit D3 200 1 tablet PO DAILY 09/09/25 09/09/25 09/08/25 History unit-magnesium 133 mg-zinc 5 mg tablet fluticasone propionate 50 2 spray intranasal Q12H PRN 09/09/25 09/09/25 09/08/25 History mcg/actuation nasal congestion spray,suspension magnesium oxide 400 mg PO DAILY 09/09/25 09/09/25 09/08/25 History tamsulosin 0.4 mg capsule 0.4 mg PO Q24H 09/09/25 09/09/25 09/08/25 History triamcinolone acetonide 0.1 % 1 applic topical BID 09/09/25 09/09/25 09/08/25 History topical cream zinc gluconate 50 mg tablet 50 mg PO ONCE 09/09/25 09/09/25 09/08/25 History Allergies Allergy/AdvReac Type Severity Reaction Status Date / Time levothyroxine sodium (From Allergy Severe Hives Verified 09/09/25 23:04 Levothroid) [facility], [facility] Past Medical History Medical History Tear of left rotator cuff History of kidney stones Thyroid disorder Hypertension Arthritis Asthma Allergies Adenomatous colon polyp Renal lithiasis Depression Hypothyroidism JULES (obstructive sleep apnea) Surgical History Surgical History History of elbow surgery H/O lithotripsy Hx of colonoscopy Family History Family History Mother Cerebrovascular accident Family history of kidney stones Asthma Depression Thyroid disorder Father Family history of diabetes mellitus in first degree relative Family history of primary malignant neoplasm of liver Family history of malignant neoplasm of kidney Diabetes mellitus Hypertension Depression Heart disease Cerebrovascular accident Sibling Depression Social History Social History Smoking status: Never smoker Alcohol intake: never Substance use: never Substance use type: does not use Living arrangements: with family 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- [employer] Spiritual care concerns: No Course Vital Signs Vital signs: Vital Signs Temperature 98.3 F 09/09/25 15:00 Pulse Rate 109 H 09/09/25 15:00 Respiratory Rate 18 09/09/25 15:00 Blood Pressure 168/95 H 09/09/25 15:00 Pulse Oximetry 98 09/09/25 15:00 Oxygen Delivery Room Air 09/09/25 15:00 Temperature 98.3 F 09/09/25 15:00 Pulse Rate 95 09/09/25 17:22 Respiratory Rate 16 09/09/25 17:22 Blood Pressure 168/102 H 09/09/25 17:22 Pulse Oximetry 97 09/09/25 17:22 Oxygen Delivery Room Air 09/09/25 15:00 Medical Decision Making MDM Narrative Medical decision making narrative: 59-year-old male presenting with right flank pain that radiates to his abdomen since this afternoon. Patient states he is a significant kidney stone history and that this instance feels the exact same as before. Denies nausea/vomiting, urinary complaints, GI complaints, or chest pain/shortness of breath. Upon my initial exam patient is pacing the room endorsing that it improves his discomfort. Patient reports that he is already well-established with Urology. CT abdomen pelvis demonstrates a 9 mm stone in proximal right ureter with hydronephrosis. Administered oxycodone which improved patient's symptoms. Patient has stable vitals, no leukocytosis, and kidney function within normal limits. Discussed with Dr. Tenorio with urology patient presentation and workup. Agrees with admission at this time. Discussed patient with hospitalist Xiomara Kate WOODWORKING BELT SANDER for admission, recommended starting patient on Ceftriaxone. Patient is stable and agreeable to admission; awaiting bed placement. Medical Records Medical records reviewed: Yes I reviewed the external patient's medical records. Vital Signs Vital Signs: Vital Signs Temperature 98.3 F 09/09/25 15:00 Pulse Rate 109 H 09/09/25 15:00 Respiratory Rate 18 09/09/25 15:00 Blood Pressure 168/95 H 09/09/25 15:00 Pulse Oximetry 98 09/09/25 15:00 Oxygen Delivery Room Air 09/09/25 15:00 Temperature 98.3 F 09/09/25 15:00 Pulse Rate 95 09/09/25 17:22 Respiratory Rate 16 09/09/25 17:22 Blood Pressure 168/102 H 09/09/25 17:22 Pulse Oximetry 97 09/09/25 17:22 Oxygen Delivery Room Air 09/09/25 15:00 Lab Data Lab results reviewed: Yes I reviewed the patient's lab results. 09/09/25 16:53 09/09/25 16:53 Labs: Lab Results 09/09/25 Range/Units 16:53 WBC 9.1 (4.5-10.0) K/mm3 RBC 5.36 (4.6-6.20) M/mm3 Hgb 16.2 (14.0-18.0) g/dL Hct 48.3 (42.0-52.0) % MCV 90.1 (80-100) fl MCH 30.2 (26-34) pg MCHC 33.5 (32-36) g/dl RDW 13.3 (11.5-14.5) % Plt Count 301 (150-375) k/mm3 MPV 9.0 (7.4-10.4) fl Immature Gran % (Auto) 0.4 (0-0.5) % Neut % (Auto) 65.1 (45.5-73.1) % Lymph % (Auto) 18.1 L (18.3-44.2) % [place] % (Auto) 11.8 H (2.6-8.5) % Eos % (Auto) 3.9 (0-4.4) % Baso % (Auto) 0.7 (0.2-1.2) % Lymph # (Auto) 1.64 (0.9-3.2) K/mm3 [place] # (Auto) 1.1 H (0.1-0.6) K/mm3 Eos # (Auto) 0.4 H (0-0.3) K/mm3 Baso # (Auto) 0.1 (0.0-0.1) K/mm3 Abs Immat Gran (auto) 0.04 H (0.00-0.031) K/mm3 Absolute Neuts (auto) 5.9 (1.3-6.7) K/mm3 Absolute Nucleated RBC 0.000 (0.0-0.012) K/mm3 Nucleated RBC % 0.0 (0.0-0.2) % Sodium 137 (137-145) mmol/L Potassium 4.1 (3.4-5.0) mmol/L Chloride 103 (98-107) mmol/L Carbon Dioxide 26 (22-30) mmol/L Anion Gap 8 (4-12) mmol/L BUN 20 (9-20) mg/dL Creatinine 1.12 (0.7-1.3) mg/dL Estim Creat Clear Calc 76 ml/min Estimated GFR > 60 (59 - ) Glucose 102 (65-110) mg/dL Calcium 9.5 (8.4-10.2) mg/dL Total Bilirubin 0.5 (0.2-1.3) mg/dL AST 38 (17-59) U/L ALT 39 (6-50) U/L Alkaline Phosphatase 83 (38-126) U/L Total Protein 7.3 (6.3-8.2) g/dL Albumin 4.6 (3.5-5.1) g/dL Lipase 126 (23-300) U/L Urine Color Yellow (Yellow) Urine Appearance Clear (Clear) Urine pH 7.0 (5.0-9.0) Ur Specific [place] 1.012 (1.001-1.035) Urine Protein Negative (Negative) mg/dL Urine Glucose (UA) Negative (Negative) mg/dL Urine Ketones Negative (Negative) mg/dL Ur Blood (Man) Non-hemolyzed trace (Negative) Urine Nitrate Positive H (Negative) Urine Bilirubin Negative (Negative) Urine Urobilinogen 0.2 (<2.0) mg/dL Leukocyte Esterase Rfl 2+ H (Negative) CHARAN/UL Urine RBC 6-10 H (0-2) /hpf Urine WBC 21-50 H (0-3) /hpf Ur Squamous Epith Cells None seen (Few) /hpf Urine Bacteria Rare /hpf Urine Casts 0-2 Imaging Data Attestation: I personally reviewed and interpreted this imaging study as follows: Radiologist's impression: ITS Impressions Abdomen/Pelvis CT 09/09/25 18:52 IMPRESSION: 1. Limited noncontrast examination is not optimal for evaluation of solid viscera, neoplasms and vascular structures. 2. Bilateral intrarenal calculi as described above. 3. 9 mm size calculus in the proximal right ureter at the L2 level causing moderately significant right hydronephrosis. 4. Degenerative disc disease at L4-5 level. Discharge Plan Discharge Clinical Impression: Nephrolithiasis Patient Disposition: Still a Patient Condition: Stable
[2025-09-09 20:28] VITALS: BP 137/102; PULSE 102; RESP 16; TEMP 36.6; O2SAT 97
[2025-09-09] MEDS: cefTRIAXone 1 GM in SODIUM CHLORIDE 0.9% IV 50 ML 100 ML IVPB (20:45)
[2025-09-09 21:57] VITALS: BP 147/102; PULSE 98; RESP 16; TEMP 36.6; O2SAT 98
--- NOTE | 2025-09-09 21:59 | WPCEDHO ---
ED Hand Off Checklist All vitals saved:Y IV Site documented:Y All med administrations documented:Y Triage Note Triage Note Pt presents to ED c/o R lower 09/09/25 16:36 quadrant abd pain. pt states it feels similar to when he had kidney stones before. Pt states pain radiates to lower back. Pt states no difficulty urinating. Pt denies n/v, fevers, cough or sore throat. Allergies levothyroxine sodium (From Levothroid) Allergy (Severe, Verified 09/09/25 15:03) Hives Family History (Last Reviewed 12/14/24 @ 13:58 by Bentley Roth MD) Mother Cerebrovascular accident Family history of kidney stones Asthma Depression Thyroid disorder Father Family history of diabetes mellitus in first degree relative Family history of primary malignant neoplasm of liver Family history of malignant neoplasm of kidney Diabetes mellitus Hypertension Depression Heart disease Cerebrovascular accident Sibling Depression Administered/Completed Medications Discontinued Medications Ceftriaxone Sodium 1 gm/ (Sodium Chloride) 50 mls @ 100 mls/hr IVPB ONCE STA Stop: 09/09/25 21:02 Last Infusion: 09/09/25 21:18 Dose: Infused Documented By: Admin: 09/09/25 20:45 Dose: 100 mls/hr Documented By: SHANNON Oxycodone HCl (Oxycodone Hcl (*Crx) 5 Mg Tab Ir) 5 mg PO ONCE STA Stop: 09/09/25 18:30 Last Admin: 09/09/25 18:39 Dose: 5 mg Documented By: ANGELA Interventions/Assessments IV / Saline Lock, Insert Start: 09/09/25 16:31 Freq: STAT Status: Active Protocol: Document 09/09/25 16:52 KKR (Rec: 09/09/25 16:52 KKR [id number]) IV Assessment Peripheral Access Right Forearm IV Catheter Access Initiated IV Insertion Date 09/09/25 IV Insertion Time 16:52 Catheter Gauge 20 IV Insertion 1 Attempts Ultrasound Used for No Placement IV Site Assessment WNL IV Care and WNL Maintenance PA: Genitourinary Assessment Start: 09/09/25 17:00 Freq: Status: Active Protocol: Document 09/09/25 17:00 LDD (Rec: 09/09/25 17:00 LDD [id number]) Assessment Genitourinary Flank Pain Symptoms Voiding Method Toilet PA: Musculoskeletal Assessment Start: 09/09/25 14:27 Freq: Status: Active Protocol: Document 09/09/25 16:36 KKR (Rec: 09/09/25 16:39 KKR [id number]) Musculoskeletal Assessment Lower Abdomen Musculoskeletal None Symptoms Limb Description Normal Range of Motion Full Range of Motion Last Vital Signs Temperature 97.8 F 09/09/25 21:57 Pulse Rate 98 09/09/25 21:57 Respiratory Rate 16 09/09/25 21:57 Pulse Oximetry 98 09/09/25 21:57 Blood Pressure 147/102 H 09/09/25 21:57 Blood Pressure Mean 117 09/09/25 21:57 Oxygen Delivery Room Air 09/09/25 15:00 Weight 104.1 kg 09/09/25 15:00 Last Result - Abnormals Only Lymph % (Auto) 18.1 % (18.3-44.2) L 09/09/25 16:53 [place] % (Auto) 11.8 % (2.6-8.5) H 09/09/25 16:53 [place] # (Auto) 1.1 K/mm3 (0.1-0.6) H 09/09/25 16:53 Eos # (Auto) 0.4 K/mm3 (0-0.3) H 09/09/25 16:53 Abs Immat Gran (auto) 0.04 K/mm3 (0.00-0.031) H 09/09/25 16:53 Urine Nitrate Positive (Negative) H 09/09/25 16:53 Leukocyte Esterase Rfl 2+ CHARAN/UL (Negative) H 09/09/25 16:53 Urine RBC 6-10 /hpf (0-2) H 09/09/25 16:53 Urine WBC 21-50 /hpf (0-3) H 09/09/25 16:53 Most Recent Suicide Severity Rating Suicide Severity Rating NO RISK INDICATED 09/09/25 16:36
[2025-09-09 22:34] VITALS: BP 164/83; PULSE 89; RESP 16; TEMP 36.2; O2SAT 98; BMI 32.4
[2025-09-09 22:57] VITALS: BMI 31.1
--- NOTE | 2025-09-09 22:57 | ADMGEN ---
This patient, Rah Chang, was admitted to [facility] Surg Room 332-02. Patient/family oriented to hospital policies and general routines including ID bracelet, bed and alarms, visiting hours, pain management, procedures, bathroom and other care routines, personal items, smoking policy, room service/diet, and visiting hours. Information on how to activate the Rapid Response Team has been discussed. Patient/Family are encouraged to report perceived risks to care and to ask questions if they do not understand what they are told or what they should do.
[2025-09-10] VITALS (14 sets, daily range): BP systolic 117–170; BP diastolic 83–99; PULSE 87–106; RESP 16–21; TEMP 36.3–37.6; O2SAT 91–96
[2025-09-10] MEDS: HYDROcodone/acetaminophen (*CRX) 5-325 MG TABLET 1 TAB PO ×3 (04:03→20:23)
[2025-09-10] MEDS: HYDROmorphone HCL INJ (*CRX) 1 MG/ML SYR IV PUSH ×2 (04:38→07:52)
[2025-09-10 06:23] LABS: Hematocrit 49.2 % (42.0-52.0); Hemoglobin 16.3 g/dL (14.0-18.0); Mean Corpuscular HGB Conc 33.1 g/dl (32-36); Mean Corpuscular Hemoglobin 29.9 pg (26-34); Mean Corpuscular Volume 90.3 fl (80-100); Platelet Count Result 255 k/mm3 (150-375); Red Blood Count 5.45 M/mm3 (4.6-6.20); White Blood Count 8.7 K/mm3 (4.5-10.0)
--- NOTE | 2025-09-10 06:26 | PM.IMHP ---
H&P: HPI History of Present Illness Date/Time: 09/10/25 06:26 Chief Complaint: right lower quadrant discomfort Narrative: This is a 59 year old male patient who has a history of kidney stones. He stated that he developed intense right flank pain in the afternoon that felt like a kidney stone.He has had multiple kidney stones and had multiple lithotripsies. He denied any fever or chills. He has been urinating without difficulty . He denies any Fever, chills, nausea , or vomiting .His blood pressure was elevagted 168/95 and 168/102. IMPRESSION: 1. Limited noncontrast examination is not optimal for evaluation of solid viscera, neoplasms and vascular structures. 2. Bilateral intrarenal calculi as described above. 3. 9 mm size calculus in the proximal right ureter at the L2 level causing moderately significant right hydronephrosis. 4. Degenerative disc disease at L4-5 level. Urology has been consulted. He was started on rocephin in the er . His wbc count was not noted to be elevated. urine had 2 plus leukocytes, positive nitrates, urine rbc 6-10, wbc 21-50. He is being admitted to observation status on the date of service 09/10/2025 Review of Systems Constitutional: Constitutional: Reports as per HPI and Reports no additional constitutional complaints Eyes: Eyes: Reports as per HPI and Reports no additional eye complaints ENT: Reports no additional ear, nose, mouth, and throat complaints and Reports Normal hearing present Cardiovascular: Cardiovascular: Reports no additional cardiovascular complaints Respiratory: Respiratory: Reports as per HPI and Reports no additional respiratory complaints Gastrointestinal: Gastrointestinal: Reports as per HPI and Reports no additional gastrointestinal complaints Musculoskeletal: Musculoskeletal: Reports no additional musculoskeletal complaints Integumentary/Breasts: Skin/Breast: Reports system reviewed and no additional complaints, except as docu Neurologic: Reports no additional neurologic complaints and Reports Normal hearing present Psychiatric: Psychiatric: Reports no additional psychiatric complaints and Reports as per HPI Hematologic/Lymphatic: Hematologic/Lymphatic: Reports no additional hematologic/lymphatic complaints Allergic/Immunologic: Allergic/Immunologic: Reports no additional allergic/immunologic complaints [facility] Past Medical History Medical History (Updated 09/10/25 @ 09:45 by Xiomara Kate, LASHELL) Tear of left rotator cuff History of kidney stones Thyroid disorder Hypertension Arthritis Asthma Allergies Adenomatous colon polyp Renal lithiasis Depression Hypothyroidism JULES (obstructive sleep apnea) Surgical History Surgical History (Updated 09/10/25 @ 09:38 by Xiomara Kate APRN) History of elbow surgery right elbow H/O lithotripsy Hx of colonoscopy Family History Family History Mother Cerebrovascular accident Family history of kidney stones Asthma Depression Thyroid disorder Father Family history of diabetes mellitus in first degree relative Family history of primary malignant neoplasm of liver Family history of malignant neoplasm of kidney Diabetes mellitus Hypertension Depression Heart disease Cerebrovascular accident Sibling Depression Social History Social History (Updated 09/10/25 @ 09:41 by Xiomara Kate APRN) Social History: He is but from his currently. He has one adopted daughter . 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 Spiritual care concerns: No Meds Home Medications and Allergies Home Medications ?Medication ?Instructions ?Recorded ?Confirmed ?Type escitalopram oxalate 20 mg tablet 20 mg PO DAILY 12/28/19 09/09/25 History fexofenadine 60 mg tablet (Herlinda 180 mg PO DAILY 12/28/19 09/09/25 History Allergy) meloxicam 15 mg tablet 15 mg PO DAILY 12/28/19 09/09/25 History testosterone cypionate 200 mg/mL 100 mg IM .biweekly 12/28/19 09/09/25 History intramuscular oil thyroid (pork) 60 mg tablet 60 mg PO DAILY 12/28/19 09/09/25 History ([place] Thyroid) vitamin B complex (Super B-50 1 cap PO DAILY 12/28/19 09/09/25 History Complex capsule) antiarthritic combination no.2 900 900 mg PO DAILY 08/11/22 09/09/25 History mg tablet (glucosamine-chondroitin) bupropion HCl 300 mg 24 hr tablet, 300 mg PO QAM 08/11/22 09/09/25 History extended release caffeine 200 mg tablet 200 mg PO BID PRN drowsiness 08/11/22 09/09/25 History cholecalciferol (vitamin D3) 125 125 mcg PO DAILY 08/11/22 09/09/25 History mcg (5,000 unit) capsule omega-3 fatty acids-fish oil 360 1 cap PO DAILY 08/11/22 09/09/25 History mg-1,200 mg capsule (Fish Oil) acetaminophen 500 mg tablet 1,000 mg (2 x 500 mg) PO TID PRN 12/14/24 09/09/25 Rx (Tylenol Extra Strength) pain #30 tabs calcium 333 mg-vit D3 200 1 tablet PO DAILY 09/09/25 09/09/25 History unit-magnesium 133 mg-zinc 5 mg tablet fluticasone propionate 50 2 spray intranasal Q12H PRN 09/09/25 09/09/25 History mcg/actuation nasal congestion spray,suspension magnesium oxide 400 mg PO DAILY 09/09/25 09/09/25 History tamsulosin 0.4 mg capsule 0.4 mg PO Q24H 09/09/25 09/09/25 History triamcinolone acetonide 0.1 % 1 applic topical BID 09/09/25 09/09/25 History topical cream zinc gluconate 50 mg tablet 50 mg PO ONCE 09/09/25 09/09/25 History Allergies Allergy/AdvReac Type Severity Reaction Status Date / Time levothyroxine sodium (From Allergy Severe Hives Verified 09/10/25 15:41 Levothroid) Vital Signs Vital Signs - 24 hr 09/09/25 15:00 09/09/25 17:22 09/09/25 20:28 Temperature 98.3 F 97.8 F Pulse Rate 109 H 95 102 H Respiratory Rate 18 16 16 Blood Pressure 168/95 H 168/102 H 137/102 H Pulse Oximetry 98 97 97 Oxygen Delivery Room Air 09/09/25 21:57 09/09/25 22:34 09/10/25 04:42 Temperature 97.8 F 97.2 F L 97.8 F Pulse Rate 98 89 87 Respiratory Rate 16 16 18 Blood Pressure 147/102 H 164/83 H 158/98 H Pulse Oximetry 98 98 95 Oxygen Delivery Exam Const: General: cooperative, healthy appearing, comfortable, no acute distress, well developed, awake, Physically active, average body habitus and well nourished Nutritional Appearance: average body habitus and well nourished Orientation/consciousness: oriented to person, oriented to place, oriented to time and patient oriented x3 Limitations: no limitations HENMT: Head: normal to inspection and normocephalic Ears: hearing grossly normal bilaterally and external ears normal Face/Nose/Sinus: Normal external nose present Eyes: General: appearance normal, both eyes and all related structures Alignment and Position: alignment normal Eyelids: eyelids normal EOM: EOMs intact bilaterally Neck: Neck: normal visual inspection, full ROM, no lymphadenopathy and trachea midline Chest: Chest palpation & inspection: normal inspection of the chest Resp: Effort & Inspection: normal respiratory effort Auscultation: clear to auscultation bilaterally Cardio: Palpation: normal PMI Rate: regular rate Rhythm: regular rhythm Heart sounds: S1 normal heart sound present and S2 normal heart sound present Peripheral pulses: Peripheral pulses 2+ throughout GI: Inspection: normal to inspection Percussion: Yes normal to percussion Auscultation: normal bowel sounds Rectal Exam: deferred Skin: General skin exam: normal color Lesions: no lesions Rashes: no rashes Trauma: no lacerations or abrasions Wounds: no wounds Hair: normal Nails: normal Neuro: General: oriented to person, oriented to place, oriented to time and patient oriented x3 Cranial nerves: Yes Normal hearing present Cognition (Neuro): normal cognition Speech: normal speech Gait exam (Neuro): Normal gait present Motor exam (neuro): 5/5 motor strength present throughout Sensory Exam: normal sensation Extrem: General: normal to inspection Right upper extremity: normal to inspection and shoulder/upper arm Left upper extremity: normal to inspection and shoulder/upper arm Right lower extremity: normal to inspection Left lower extremity: normal to inspection Psych: Appearance: grossly normal Mental Status: mental status grossly normal Speech and movement: Normal speech and movement present Affect: normal affect Attitude: cooperative Thought process: Normal thought process present Thought content: Yes Normal thought content present Insight: Good insight present (Psych) Judgement: Good judgement present (Psych) H&P: Results Labs Labs: Short CBC 09/09/25 09/10/25 Range/Units 16:53 06:06 WBC 9.1 8.7 (4.5-10.0) K/mm3 Hgb 16.2 16.3 (14.0-18.0) g/dL Hct 48.3 49.2 (42.0-52.0) % Plt Count 301 255 (150-375) k/mm3 [facility] 09/09/25 16:53 Sodium 137 Potassium 4.1 Chloride 103 Carbon Dioxide 26 BUN 20 Creatinine 1.12 Glucose 102 Calcium 9.5 Liver Function 09/09/25 Range/Units 16:53 Total Bilirubin 0.5 (0.2-1.3) mg/dL AST 38 (17-59) U/L ALT 39 (6-50) U/L Alkaline Phosphatase 83 (38-126) U/L Albumin 4.6 (3.5-5.1) g/dL Urine 09/09/25 Range/Units 16:53 Urine Color Yellow (Yellow) Urine Appearance Clear (Clear) Urine pH 7.0 (5.0-9.0) Ur Specific [place] 1.012 (1.001-1.035) Urine Protein Negative (Negative) mg/dL Urine Glucose (UA) Negative (Negative) mg/dL Imaging CT scan - abdomen: Radiologist's impression: ITS Impressions Abdomen/Pelvis CT 09/09/25 18:52 IMPRESSION: 1. Limited noncontrast examination is not optimal for evaluation of solid viscera, neoplasms and vascular structures. 2. Bilateral intrarenal calculi as described above. 3. 9 mm size calculus in the proximal right ureter at the L2 level causing moderately significant right hydronephrosis. 4. Degenerative disc disease at L4-5 level. Assessment and Plan Assessment and plan (1) Nephrolithiasis: Code(s): N20.0 - Calculus of kidney Status: Acute Assessment and Plan: -urology has been consulted for further recommendations, evaluation, and treatment -continue with pain management -strain all urine -He is NPO for possible procedures except for sips with medications -monitor cbc - empiriclly started on rocephin -blood and urine cultures pending - continue with tamsulosin -IMPRESSION: 1. Limited noncontrast examination is not optimal for evaluation of solid viscera, neoplasms and vascular structures. 2. Bilateral intrarenal calculi as described above. 3. 9 mm size calculus in the proximal right ureter at the L2 level causing moderately significant right hydronephrosis. 4. Degenerative disc disease at L4-5 level. (2) Hypothyroidism: Code(s): E03.9 - Hypothyroidism, unspecified Status: Acute Assessment and Plan: - he may use his home supply of armour thyroid (3) Hypertension: Code(s): I10 - Essential (primary) hypertension Status: Acute Assessment and Plan: - this may be elevated due to the discomfort . - monitor renal panel -bp decreases some what with pain medication - prn hydralizine with parameters (4) Depression: Code(s): F32.9 - Major depressive disorder, single episode, unspecified Status: Acute Assessment and Plan: - continue with lexapro and buproprion Quality VTE Prophylaxis VTE prophylaxis: mechanical ordered
[2025-09-10 06:47] LABS: Anion Gap 7 mmol/L (4-12); Blood Urea Nitrogen 18 mg/dL (9-20); Calcium 9.2 mg/dL (8.4-10.2); Carbon Dioxide 27 mmol/L (22-30); Chloride 104 mmol/L (98-107); Estimated CRCL calculation 72 ml/min; Estimated Glomerular Filt Rate > 60; Glucose 102 mg/dL (65-110); Potassium 4.0 mmol/L (3.4-5.0); Sodium 138 mmol/L (137-145)
--- NOTE | 2025-09-10 09:16 | WPDURCON ---
Assessment and Plan Assessment and plan (1) Nephrolithiasis: Code(s): N20.0 - Calculus of kidney Status: Acute Assessment and Plan: - CT A/P reviewed with pt confirming Right 9 mm proximal ureteral stone - Significant upstream hydro; UA nitrate positive concerning for UTI. In the setting of significant hydro and infection recommend ureteral stent placement; pt voices her understanding and agrees with plan - Plan for cysto, Right RGP, Left ureteral stent placement with Dr. Lundberg in the OR today. - Surgery and associated risks and benefits of procedure reviewed with pt. - Hold NPO - Continue to strain urine (2) Hydronephrosis: Qualifiers: Hydronephrosis type: with renal calculous obstruction Qualified Code(s): N13.2 - Hydronephrosis with renal and ureteral calculous obstruction Code(s): N13.30 - Unspecified hydronephrosis Status: Acute Assessment and Plan: - In the setting of ureteral stone; stent placement as above - Creatinine stable at 1.2 (3) UTI (urinary tract infection): Qualifiers: Urinary tract infection type: acute cystitis Hematuria presence: without hematuria Qualified Code(s): N30.00 - Acute cystitis without hematuria Code(s): N39.0 - Urinary tract infection, site not specified Status: Acute Assessment and Plan: - UA consistent with UTI - Continue broad spectrum Abx - Once UCx resulted transition to cover based on susceptibility profile Urology Consult Note HPI Date Seen: 09/10/25 Requesting Physician: Babar Cole DO Primary Care Provider: Tamiko Solitario, PA Consult Narrative Narrative: Pt is a 59 year old M with Hx of nephrolithiasis requiring previous surgery who presented to the ED with acute onset Right flank pain found to have a 9 mm Right proximal ureteral stone for whom urology is consulted for stone management. Pt states that at 2 AM he experience abrupt onset of severe 10/10 Right flank pain which radiated to his lower abdomen. Presented to the ED and was diagnosed with above stone. Denies N/V or voiding symptoms Currently pain is well controlled and he is resting comfortably in bed. Last PO intake was last night. Review of Systems Cardiovascular: Cardiovascular: Denies chest pain, Denies lightheadedness, Denies palpitations and Denies dyspnea Respiratory: Respiratory: Denies dyspnea Gastrointestinal: Gastrointestinal: Denies diarrhea, Denies nausea and Denies vomiting Genitourinary: Genitourinary: Denies hematuria and Denies dysuria Endocrine: Endocrine: Denies palpitations PMF Past Medical History Medical History Tear of left rotator cuff History of kidney stones Thyroid disorder Hypertension Arthritis Asthma Allergies Adenomatous colon polyp Renal lithiasis Depression Hypothyroidism JULES (obstructive sleep apnea) Surgical History Surgical History History of elbow surgery H/O lithotripsy Hx of colonoscopy Family History Family History Mother Cerebrovascular accident Family history of kidney stones Asthma Depression Thyroid disorder Father Family history of diabetes mellitus in first degree relative Family history of primary malignant neoplasm of liver Family history of malignant neoplasm of kidney Diabetes mellitus Hypertension Depression Heart disease Cerebrovascular accident Sibling Depression Social History Social History Smoking status: Never smoker Second hand tobacco smoke exposure: No Alcohol intake: never Substance use: never Substance use type: does not use Lack of Transportation: No Lack of Food: Never True Current Housing: I Have Housing Concerned About Future Housing: No Difficulty Paying Gas/Electric Bills: No Difficulty Paying for Meds: No Currently Unemployed: No Education: Bachelor's Degree Difficulty w/ Childcare or Family Care: No Living arrangements: with family 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- [employer] Spiritual care concerns: No Meds Home Medications and Allergies Home Medications ?Medication ?Instructions ?Recorded ?Confirmed ?Type escitalopram oxalate 20 mg tablet 20 mg PO DAILY 12/28/19 09/09/25 History fexofenadine 60 mg tablet (Herlinda 180 mg PO DAILY 12/28/19 09/09/25 History Allergy) meloxicam 15 mg tablet 15 mg PO DAILY 12/28/19 09/09/25 History testosterone cypionate 200 mg/mL 100 mg IM .biweekly 12/28/19 09/09/25 History intramuscular oil thyroid (pork) 60 mg tablet 60 mg PO DAILY 12/28/19 09/09/25 History ([place] Thyroid) vitamin B complex (Super B-50 1 cap PO DAILY 12/28/19 09/09/25 History Complex capsule) antiarthritic combination no.2 900 900 mg PO DAILY 08/11/22 09/09/25 History mg tablet (glucosamine-chondroitin) bupropion HCl 300 mg 24 hr tablet, 300 mg PO QAM 08/11/22 09/09/25 History extended release caffeine 200 mg tablet 200 mg PO BID PRN drowsiness 08/11/22 09/09/25 History cholecalciferol (vitamin D3) 125 125 mcg PO DAILY 08/11/22 09/09/25 History mcg (5,000 unit) capsule omega-3 fatty acids-fish oil 360 1 cap PO DAILY 08/11/22 09/09/25 History mg-1,200 mg capsule (Fish Oil) acetaminophen 500 mg tablet 1,000 mg (2 x 500 mg) PO TID PRN 12/14/24 09/09/25 Rx (Tylenol Extra Strength) pain #30 tabs calcium 333 mg-vit D3 200 1 tablet PO DAILY 09/09/25 09/09/25 History unit-magnesium 133 mg-zinc 5 mg tablet fluticasone propionate 50 2 spray intranasal Q12H PRN 09/09/25 09/09/25 History mcg/actuation nasal congestion spray,suspension magnesium oxide 400 mg PO DAILY 09/09/25 09/09/25 History tamsulosin 0.4 mg capsule 0.4 mg PO Q24H 09/09/25 09/09/25 History triamcinolone acetonide 0.1 % 1 applic topical BID 09/09/25 09/09/25 History topical cream zinc gluconate 50 mg tablet 50 mg PO ONCE 09/09/25 09/09/25 History Allergies Allergy/AdvReac Type Severity Reaction Status Date / Time levothyroxine sodium (From Allergy Severe Hives Verified 09/09/25 23:04 Levothroid) Vital Signs Vital Signs - 24 hr 09/09/25 15:00 09/09/25 17:22 09/09/25 20:28 Temperature 36.8 C 36.6 C Pulse Rate 109 H 95 102 H Respiratory Rate 18 16 16 Blood Pressure 168/95 H 168/102 H 137/102 H Pulse Oximetry 98 97 97 Oxygen Delivery Room Air 09/09/25 21:57 09/09/25 22:34 09/10/25 04:42 Temperature 36.6 C 36.2 C L 36.6 C Pulse Rate 98 89 87 Respiratory Rate 16 16 18 Blood Pressure 147/102 H 164/83 H 158/98 H Pulse Oximetry 98 98 95 Oxygen Delivery Exam Const: General: comfortable and no acute distress Eyes: General: appearance normal, both eyes and all related structures Resp: Effort & Inspection: normal respiratory effort Skin: General skin exam: normal color Neuro: Speech: normal speech Extrem: General: normal to inspection Psych: Speech and movement: Normal speech and movement present Affect: normal affect Results Labs 09/10/25 06:06 09/10/25 06:06 Labs: Short CBC 09/09/25 09/10/25 Range/Units 16:53 06:06 WBC 9.1 8.7 (4.5-10.0) K/mm3 Hgb 16.2 16.3 (14.0-18.0) g/dL Hct 48.3 49.2 (42.0-52.0) % Plt Count 301 255 (150-375) k/mm3 [facility] 09/09/25 09/10/25 16:53 06:06 Sodium 137 138 Potassium 4.1 4.0 Chloride 103 104 Carbon Dioxide 26 27 BUN 20 18 Creatinine 1.12 1.16 Glucose 102 102 Calcium 9.5 9.2 Liver Function 09/09/25 Range/Units 16:53 Total Bilirubin 0.5 (0.2-1.3) mg/dL AST 38 (17-59) U/L ALT 39 (6-50) U/L Alkaline Phosphatase 83 (38-126) U/L Albumin 4.6 (3.5-5.1) g/dL Urine 09/09/25 Range/Units 16:53 Urine Color Yellow (Yellow) Urine Appearance Clear (Clear) Urine pH 7.0 (5.0-9.0) Ur Specific [place] 1.012 (1.001-1.035) Urine Protein Negative (Negative) mg/dL Urine Glucose (UA) Negative (Negative) mg/dL
[2025-09-10] MEDS: ESCITALOPRAM OXALATE 10 MG TABLET 20 MG PO (11:14)
[2025-09-10] MEDS: buPROPion HCL XL (24 HR) 150 MG TABCR 300 MG PO (11:14)
--- NOTE | 2025-09-10 13:11 | P.PNIM_ITS ---
Progress Note: A&P Assessment and Plan (1) Nephrolithiasis: Code(s): N20.0 - Calculus of kidney Status: Acute Assessment and Plan: Presented with right ureteral stone with moderate hydronephrosis -urology has been consulted for further recommendations, evaluation, and treatment -continue with pain management -strain all urine -He is NPO for stent placement today -monitor cbc - empiriclly started on rocephin -blood and urine cultures pending - continue with tamsulosin -IMPRESSION: 1. Limited noncontrast examination is not optimal for evaluation of solid viscera, neoplasms and vascular structures. 2. Bilateral intrarenal calculi as described above. 3. 9 mm size calculus in the proximal right ureter at the L2 level causing moderately significant right hydronephrosis. 4. Degenerative disc disease at L4-5 level. (2) Hypothyroidism: Code(s): E03.9 - Hypothyroidism, unspecified Status: Acute Assessment and Plan: - he may use his home supply of armour thyroid (3) Hypertension: Code(s): I10 - Essential (primary) hypertension Status: Acute Assessment and Plan: - this may be elevated due to the discomfort . - monitor renal panel -bp decreases some what with pain medication - prin hydralizine with parameters (4) Depression: Code(s): F32.9 - Major depressive disorder, single episode, unspecified Status: Acute Assessment and Plan: - continue with lexapro and buproprion Subjective Date/time seen: 09/10/25 13:11 Interval history: Pain control no shortness of breath or chest pain. Review of Systems Review of Systems: All systems reviewed & are unremarkable except as noted in HPI and below Exam Narrative: GENERAL: The patient is well developed, not in acute distress HEENT: Nonicteric sclerae, PERRLA, EOMI. Oropharynx clear. Moist mucous membranes. Conjunctivae appear well perfused. CHEST: Chest wall is nontender. HEART: Regular rate and rhythm without murmur, rubs, or gallops LUNGS: Clear to auscultation bilaterally. no respiratory distress ABDOMEN: Soft, positive bowel sounds, non-tender, no organomegaly. SKIN: No rash, no excessive bruising, petechiae, or purpura. NEUROLOGIC: Cranial nerves II-XII intact, alert and oriented x 3, no gross motor deficits EXTREMITIES: no edema, cyanosis or clubbing Objective Data Vital Signs Vital Signs: Vital Signs - 24 hr 09/09/25 15:00 09/09/25 17:22 09/09/25 20:28 Temperature 98.3 F 97.8 F Pulse Rate 109 H 95 102 H Respiratory Rate 18 16 16 Blood Pressure 168/95 H 168/102 H 137/102 H Pulse Oximetry 98 97 97 Oxygen Delivery Room Air 09/09/25 21:57 09/09/25 22:34 09/10/25 04:42 Temperature 97.8 F 97.2 F L 97.8 F Pulse Rate 98 89 87 Respiratory Rate 16 16 18 Blood Pressure 147/102 H 164/83 H 158/98 H Pulse Oximetry 98 98 95 Oxygen Delivery 09/10/25 08:20 Temperature Pulse Rate Respiratory Rate 18 Blood Pressure Pulse Oximetry 95 Oxygen Delivery Room Air Intake/Output Intake/Output: Intake & Output 09/07/25 09/08/25 09/09/25 09/10/25 23:59 23:59 23:59 23:59 Intake Total 50 0 Output Total 0 Balance 50 0 Meds/Results Medications: Active Medications Generic Name Dose Route Start Last Admin Trade Name Freq PRN Reason Stop Dose Admin Hydrocodone Bitart/Acetaminophen 1 tab 09/10/25 03:51 09/10/25 11:14 Hydrocodone/Acetaminophen (*Crx) 5-325 Mg Tablet PO 1 tab Q4H PRN Administration Pain Rated 4-6 Bupropion HCl 300 mg 09/10/25 09:00 09/10/25 11:14 Bupropion Hcl Xl (24 Hr) 150 Mg Tabcr PO 300 mg QAM RHONDA Administration Escitalopram Oxalate 20 mg 09/10/25 09:00 09/10/25 11:14 Escitalopram Oxalate 10 Mg Tablet PO 20 mg DAILY RHONDA Administration Fluticasone Propionate 2 spray 09/10/25 09:48 Fluticasone Propionate 0.05% Na Spr 16 Gm Btl (*Bkc) NASAL Q12H PRN Congestion Hydralazine HCl 10 mg 09/10/25 09:54 Hydralazine Hcl 20 Mg/Ml Vial IV PUSH Q8H PRN Blood Pressure - High Hydromorphone HCl 1 mg 09/10/25 03:50 09/10/25 07:52 Hydromorphone Hcl Inj (*Crx) 1 Mg/Ml Syr IV PUSH 1 mg Q3H PRN Administration Pain Rated 7-10 Ceftriaxone Sodium 1 gm/ 50 mls @ 100 mls/hr 09/10/25 21:00 Sodium Chloride IVPB Q24H [facility] Tamsulosin HCl 0.4 mg 09/10/25 21:00 Tamsulosin Hcl 0.4 Mg Capsule PO Q24H [facility] Thyroid 60 mg 09/11/25 06:30 Thyroid 30 Mg Tablet PO DAILY@0630 [facility] Radiology Results: ITS Impressions Abdomen/Pelvis CT 09/09/25 18:52 IMPRESSION: 1. Limited noncontrast examination is not optimal for evaluation of solid viscera, neoplasms and vascular structures. 2. Bilateral intrarenal calculi as described above. 3. 9 mm size calculus in the proximal right ureter at the L2 level causing moderately significant right hydronephrosis. 4. Degenerative disc disease at L4-5 level. Labs Labs: Laboratory Results - last 24 hr 09/09/25 09/09/25 09/10/25 16:53 21:07 06:06 WBC 9.1 8.7 RBC 5.36 5.45 Hgb 16.2 16.3 Hct 48.3 49.2 MCV 90.1 90.3 MCH 30.2 29.9 MCHC 33.5 33.1 RDW 13.3 13.2 Plt Count 301 255 MPV 9.0 9.1 Immature Gran % (Auto) 0.4 Neut % (Auto) 65.1 Lymph % (Auto) 18.1 L [place] % (Auto) 11.8 H Eos % (Auto) 3.9 Baso % (Auto) 0.7 Lymph # (Auto) 1.64 [place] # (Auto) 1.1 H Eos # (Auto) 0.4 H Baso # (Auto) 0.1 Abs Immat Gran (auto) 0.04 H Absolute Neuts (auto) 5.9 Absolute Nucleated RBC 0.000 Nucleated RBC % 0.0 Sodium 137 138 Potassium 4.1 4.0 Chloride 103 104 Carbon Dioxide 26 27 Anion Gap 8 7 BUN 20 18 Creatinine 1.12 1.16 Estim Creat Clear Calc 76 72 Estimated GFR > 60 > 60 Glucose 102 102 Lactic Acid 0.9 Calcium 9.5 9.2 Total Bilirubin 0.5 AST 38 ALT 39 Alkaline Phosphatase 83 Total Protein 7.3 Albumin 4.6 Lipase 126 Urine Color Yellow Urine Appearance Clear Urine pH 7.0 Ur Specific [place] 1.012 Urine Protein Negative Urine Glucose (UA) Negative Urine Ketones Negative Ur Blood (Man) Non-hemolyzed trace Urine Nitrate Positive H Urine Bilirubin Negative Urine Urobilinogen 0.2 Leukocyte Esterase Rfl 2+ H Urine RBC 6-10 H Urine WBC 21-50 H Ur Squamous Epith Cells None seen Urine Bacteria Rare Urine Casts 0-2
--- NOTE | 2025-09-10 14:28 | PC.NURSE ---
To OR via wheelchair. Voiding. Family at bedside.
--- NOTE | 2025-09-10 14:32 | WPDHPUPDATE1 ---
History and Physical Update Update Date/Time: 09/10/25 14:32 History and Physical has been reviewed, including an updated exam of the patient. There are NO changes in the patient's condition. Risks, benefits, and alternatives have been discussed and questions answered. Patient agrees to proceed with procedure.
--- NOTE | 2025-09-10 15:25 | WPDANESEPPF ---
Anes - Initial Pre Proc Eval Procedure: Operation Date: 09/10/25 16:30 Proposed Procedures p Cystoscopy, Right Retrograde Pyelogram, Right Stent Placement - Conrad Lundberg MD Date/Time: 09/10/25 15:25 Surgeon: Babar Cole DO Pre Op Diagnosis: Nephrolithiasis Patient Data Age: 59 Gender: M Height: 1.8 m Weight: 101.3 kg Last Vital Signs Temp 37.2 C 09/10/25 14:00 Pulse 96 09/10/25 14:00 Resp 18 09/10/25 14:00 BP 153/95 H 09/10/25 14:00 Pulse Ox 95 09/10/25 14:00 O2 Del Method Room Air 09/10/25 08:20 Allergies Allergy/AdvReac Type Severity Reaction Status Date / Time levothyroxine sodium (From Allergy Severe Hives Verified 09/09/25 23:04 Levothroid) Home Medications ?Medication ?Instructions ?Recorded ?Confirmed ?Type escitalopram oxalate 20 mg tablet 20 mg PO DAILY 12/28/19 09/09/25 History fexofenadine 60 mg tablet (Herlinda 180 mg PO DAILY 12/28/19 09/09/25 History Allergy) meloxicam 15 mg tablet 15 mg PO DAILY 12/28/19 09/09/25 History testosterone cypionate 200 mg/mL 100 mg IM .biweekly 12/28/19 09/09/25 History intramuscular oil thyroid (pork) 60 mg tablet 60 mg PO DAILY 12/28/19 09/09/25 History ([place] Thyroid) vitamin B complex (Super B-50 1 cap PO DAILY 12/28/19 09/09/25 History Complex capsule) antiarthritic combination no.2 900 900 mg PO DAILY 08/11/22 09/09/25 History mg tablet (glucosamine-chondroitin) bupropion HCl 300 mg 24 hr tablet, 300 mg PO QAM 08/11/22 09/09/25 History extended release caffeine 200 mg tablet 200 mg PO BID PRN drowsiness 08/11/22 09/09/25 History cholecalciferol (vitamin D3) 125 125 mcg PO DAILY 08/11/22 09/09/25 History mcg (5,000 unit) capsule omega-3 fatty acids-fish oil 360 1 cap PO DAILY 08/11/22 09/09/25 History mg-1,200 mg capsule (Fish Oil) acetaminophen 500 mg tablet 1,000 mg (2 x 500 mg) PO TID PRN 12/14/24 09/09/25 Rx (Tylenol Extra Strength) pain #30 tabs calcium 333 mg-vit D3 200 1 tablet PO DAILY 09/09/25 09/09/25 History unit-magnesium 133 mg-zinc 5 mg tablet fluticasone propionate 50 2 spray intranasal Q12H PRN 09/09/25 09/09/25 History mcg/actuation nasal congestion spray,suspension magnesium oxide 400 mg PO DAILY 09/09/25 09/09/25 History tamsulosin 0.4 mg capsule 0.4 mg PO Q24H 09/09/25 09/09/25 History triamcinolone acetonide 0.1 % 1 applic topical BID 09/09/25 09/09/25 History topical cream zinc gluconate 50 mg tablet 50 mg PO ONCE 09/09/25 09/09/25 History Laboratory Tests 09/09/25 09/09/25 09/10/25 16:53 21:07 06:06 WBC 9.1 K/mm3 8.7 K/mm3 (4.5-10.0) (4.5-10.0) RBC 5.36 M/mm3 5.45 M/mm3 (4.6-6.20) (4.6-6.20) Hgb 16.2 g/dL 16.3 g/dL (14.0-18.0) (14.0-18.0) Hct 48.3 % 49.2 % (42.0-52.0) (42.0-52.0) MCV 90.1 fl 90.3 fl (80-100) (80-100) MCH 30.2 pg 29.9 pg (26-34) (26-34) MCHC 33.5 g/dl 33.1 g/dl (32-36) (32-36) RDW 13.3 % 13.2 % (11.5-14.5) (11.5-14.5) Plt Count 301 k/mm3 255 k/mm3 (150-375) (150-375) MPV 9.0 fl 9.1 fl (7.4-10.4) (7.4-10.4) Immature Gran % (Auto) 0.4 % (0-0.5) Neut % (Auto) 65.1 % (45.5-73.1) Lymph % (Auto) 18.1 L % (18.3-44.2) [place] % (Auto) 11.8 H % (2.6-8.5) Eos % (Auto) 3.9 % (0-4.4) Baso % (Auto) 0.7 % (0.2-1.2) Lymph # (Auto) 1.64 K/mm3 (0.9-3.2) [place] # (Auto) 1.1 H K/mm3 (0.1-0.6) Eos # (Auto) 0.4 H K/mm3 (0-0.3) Baso # (Auto) 0.1 K/mm3 (0.0-0.1) Abs Immat Gran (auto) 0.04 H K/mm3 (0.00-0.031) Absolute Neuts (auto) 5.9 K/mm3 (1.3-6.7) Absolute Nucleated RBC 0.000 K/mm3 (0.0-0.012) Nucleated RBC % 0.0 % (0.0-0.2) Sodium 137 mmol/L 138 mmol/L (137-145) (137-145) Potassium 4.1 mmol/L 4.0 mmol/L (3.4-5.0) (3.4-5.0) Chloride 103 mmol/L 104 mmol/L (98-107) (98-107) Carbon Dioxide 26 mmol/L 27 mmol/L (22-30) (22-30) Anion Gap 8 mmol/L 7 mmol/L (4-12) (4-12) BUN 20 mg/dL 18 mg/dL (9-20) (9-20) Creatinine 1.12 mg/dL 1.16 mg/dL (0.7-1.3) (0.7-1.3) Estim Creat Clear Calc 76 ml/min 72 ml/min Estimated GFR > 60 > 60 (59 - ) (59 - ) Glucose 102 mg/dL 102 mg/dL (65-110) (65-110) Lactic Acid 0.9 mmol/L (0.7-2.0) Calcium 9.5 mg/dL 9.2 mg/dL (8.4-10.2) (8.4-10.2) Total Bilirubin 0.5 mg/dL (0.2-1.3) AST 38 U/L (17-59) ALT 39 U/L (6-50) Alkaline Phosphatase 83 U/L (38-126) Total Protein 7.3 g/dL (6.3-8.2) Albumin 4.6 g/dL (3.5-5.1) Lipase 126 U/L (23-300) Urine Color Yellow (Yellow) Urine Appearance Clear (Clear) Urine pH 7.0 (5.0-9.0) Ur Specific [place] 1.012 (1.001-1.035) Urine Protein Negative mg/dL (Negative) Urine Glucose (UA) Negative mg/dL (Negative) Urine Ketones Negative mg/dL (Negative) Ur Blood (Man) Non-hemolyzed trace (Negative) Urine Nitrate Positive H (Negative) Urine Bilirubin Negative (Negative) Urine Urobilinogen 0.2 mg/dL (<2.0) Leukocyte Esterase Rfl 2+ H CHARAN/UL (Negative) Urine RBC 6-10 H /hpf (0-2) Urine WBC 21-50 H /hpf (0-3) Ur Squamous Epith Cells None seen /hpf (Few) Urine Bacteria Rare /hpf Urine Casts 0-2 Patient hx anesthesia problems: none Family hx anesthesia problems: none Results Review: All pre-operative results and documents have been reviewed as part of the pre-operative evaluation. [facility] Past Medical History Medical History (Updated 09/10/25 @ 09:45 by Xiomara Kate APRN) Tear of left rotator cuff History of kidney stones Thyroid disorder Hypertension Arthritis Asthma Allergies Adenomatous colon polyp Renal lithiasis Depression Hypothyroidism JULES (obstructive sleep apnea) Surgical History Surgical History (Updated 09/10/25 @ 09:38 by Xiomara Kate APRN) History of elbow surgery right elbow H/O lithotripsy Hx of colonoscopy Family History Family History Mother Cerebrovascular accident Family history of kidney stones Asthma Depression Thyroid disorder Father Family history of diabetes mellitus in first degree relative Family history of primary malignant neoplasm of liver Family history of malignant neoplasm of kidney Diabetes mellitus Hypertension Depression Heart disease Cerebrovascular accident Sibling Depression Social History Social History (Updated 09/10/25 @ 09:41 by Xiomara Kate APRN) Social History: He is but from his currently. He has one adopted daughter . 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 Informed Consent: The patient's anesthetic plan and its attendant risks and benefits were discussed with the patient/family/POA. Questions were solicited and answers provided to the satisfaction of the patient/family/POA.
[2025-09-10] MEDS: LACTATED RINGERS 1,000 ML 30 ML IV CONT (15:30)
--- NOTE | 2025-09-10 16:08 | P.OP_ITS ---
Procedure Note - Detailed Date of Procedure 09/10/25 Pre-op Diagnosis Right ureteral stone, urinary tract infection Post-op Diagnosis Same Procedure Performed 1. Cystoscopy 2. Right retrograde pyelogram with intraoperative interpretation 3. Stone manipulation without extraction 4. Right ureteral stent placement Surgeon Conrad Lundberg MD Anesthesia MAC Findings 1. Cystourethroscopy revealed patchy hyperemia of the bladder mucosa and debris within the bladder consistent with his known urinary tract infection 2. Right retrograde pyelogram using a 50 50 mixture of contrast and saline showed a filling defect at the right ureteropelvic junction as well as filling defects in the right lower pole with mild hydronephrosis and no contrast extravasation 3. During advancement of the wire into the right kidney, the right proximal ureteral stone was felt and seen under fluoroscopy to be manipulated but not extracted 4. Successful placement of right ureteral stent without strings attached Description of Procedure After informed consent was obtained, the patient was brought back to the operating theatre and placed in the supine position on the operating table. Pre- operative antibiotics were confirmed to have been administered. Anesthesia was induced. The patient was moved into the dorsal lithotomy position and prepped and draped in the standard sterile fashion for an endoscopic case. All pressure points were padded. Bilateral sequential compression devices were on and noted to be functioning. A formal timeout was performed with Dr. Lundberg in attendance to confirm the correct patient, site/laterality, and procedure and all were in agreement to proceed. To begin with, I atraumatically advanced a lubricated 22-Romanian rigid cystoscope transurethrally into the patient's bladder. Pancystoscopy was performed with findings as noted above. Attention was then turned to the right ureteral orifice, which was gently cannulated with a Sensor wire which was advanced up to the level of the right distal ureter under fluoroscopy. Over top of the wire, a 5-Romanian open ended catheter was advanced to the level of the distal ureter. The wire was removed keeping the open-ended catheter in place and a right retrograde pyelogram was performed using a 50:50 mixture of saline and contrast with findings as noted above. The wire was then replaced through the open-ended catheter and was advanced up to the level of the right kidney under fluoroscopy; during this process while the wire was advanced past the stone into the right kidney, the right proximal ureteral stone was felt and seen under fluoroscopy to be manipulated but not extracted. Afterwards, the open-ended catheter was removed in Seldinger fashion, leaving the wire in place. Over top of the wire, a 6-Romanian x 26 cm JJ stent was advanced and the pusher was used to deploy the stent in place, confirming a good proximal curl in the right kidney under fluoroscopy and a good distal curl in the bladder under both fluoroscopic and direct cystoscopic vision. The patient's bladder was then emptied and the cystoscope was removed, essentially concluding the case. At the conclusion of the case all sponge, instrument, and sharp counts were correct x 2. The patient was then awoken from anesthesia and taken to the recovery room in stable condition. The patient tolerated the procedure well and there were no immediate complications noted. Disposition: The patient will be monitored in the PACU and be transferred back to the [facility] after clearing PACU protocol. From there, urology recommends following up his urine culture results in order to pass guide the most appropriate antibiotic th erapy. Urology will arrange for patient's follow-up surgery in the upcoming weeks for definitive stone management after confirming resolution of his urinary tract infection. The patient's sister was provided with an update following the surgery and all questions were answered to her satisfaction at the conclusion of our discussion. Urine Output 0
--- NOTE | 2025-09-10 17:36 | PC.NURSE ---
Patient returns from procedure at this time. Denies pain or nausea.
[2025-09-10] MEDS: cefTRIAXone 1 GM in SODIUM CHLORIDE 0.9% IV 50 ML 100 ML IVPB (20:38)
[2025-09-10] MEDS: TAMSULOSIN HCL 0.4 MG CAPSULE PO (20:38)
[2025-09-11 00:11] VITALS: BP 129/78; PULSE 95; RESP 16; TEMP 37.1; O2SAT 94
[2025-09-11] MEDS: HYDROmorphone HCL INJ (*CRX) 1 MG/ML SYR IV PUSH (00:11)
[2025-09-11 04:00] VITALS: BP 126/81; PULSE 94; RESP 16; TEMP 37; O2SAT 95
[2025-09-11] MEDS: THYROID 30 MG TABLET 60 MG PO (05:31)
[2025-09-11] MEDS: HYDROcodone/acetaminophen (*CRX) 5-325 MG TABLET 1 TAB PO (05:31)
[2025-09-11 07:45] VITALS: BP 140/86; PULSE 94; RESP 18; TEMP 36.4; O2SAT 96
[2025-09-11 08:20] LABS: Hematocrit 45.5 % (42.0-52.0); Hemoglobin 14.7 g/dL (14.0-18.0); Mean Corpuscular HGB Conc 32.3 g/dl (32-36); Mean Corpuscular Hemoglobin 30.1 pg (26-34); Mean Corpuscular Volume 93.2 fl (80-100); Platelet Count Result 216 k/mm3 (150-375); Red Blood Count 4.88 M/mm3 (4.6-6.20); White Blood Count 6.8 K/mm3 (4.5-10.0)
[2025-09-11] MEDS: buPROPion HCL XL (24 HR) 150 MG TABCR 300 MG PO (08:42)
[2025-09-11 08:43] VITALS: RESP 18; O2SAT 96
[2025-09-11] MEDS: ESCITALOPRAM OXALATE 10 MG TABLET 20 MG PO (08:43)
[2025-09-11 09:00] LABS: Anion Gap 6 mmol/L (4-12); Blood Urea Nitrogen 21 mg/dL (9-20); Calcium 8.7 mg/dL (8.4-10.2); Carbon Dioxide 29 mmol/L (22-30); Chloride 100 mmol/L (98-107); Estimated CRCL calculation 73 ml/min; Estimated Glomerular Filt Rate > 60; Glucose 78 mg/dL (65-110); Potassium 3.8 mmol/L (3.4-5.0); Sodium 135 mmol/L (137-145)
[2025-09-11 11:54] VITALS: BP 141/89; PULSE 94; RESP 18; TEMP 36.5; O2SAT 96
--- NOTE | 2025-09-11 13:12 | PM.DS ---
DS: Admitting Diagnosis Discharge Date 09/11/25 Admitting Diagnosis Abdominal pain DS: Discharge Diagnosis Discharge Diagnosis (1) Nephrolithiasis: Code(s): N20.0 - Calculus of kidney Status: Acute (2) UTI (urinary tract infection): Qualifiers: Hematuria presence: without hematuria Urinary tract infection type: acute cystitis Qualified Code(s): N30.00 - Acute cystitis without hematuria Code(s): N39.0 - Urinary tract infection, site not specified Status: Acute (3) Hydronephrosis: Qualifiers: Hydronephrosis type: with renal calculous obstruction Qualified Code(s): N13.2 - Hydronephrosis with renal and ureteral calculous obstruction Code(s): N13.30 - Unspecified hydronephrosis Status: Acute (4) Right renal stone: Code(s): N20.0 - Calculus of kidney Status: Acute (5) Hypertension: Code(s): I10 - Essential (primary) hypertension Status: Acute (6) Hypothyroidism: Code(s): E03.9 - Hypothyroidism, unspecified Status: Acute (7) Depression: Code(s): F32.9 - Major depressive disorder, single episode, unspecified Status: Acute DS: Summary Hospital Course Reason for hospitalization: 59 year old male with HTN and history of kidney stones here for abdominal pain. Please see H&P for details. Hospital Course: Patient presets with right flank and abdominal pain. He has a hx of kidney stones. His vital signs were stable. No fevers. Normal CBC and CMP. UA was concerning for UTI so Rocephin started after Cultures collected. CT of Abd/pelvis without contrast showing bilateral intrarenal calculi and a 9 mm size calculus in the proximal right ureter at the L2 level causing moderately significant right hydronephrosis. Please see report for details. Urology consulted. Patient was taken to the OR and had a Cystoscopy, right retrograde pyelogram with intraoperative interpretation, stone manipulation without extraction and a right ureteral stent placed. Also noted was multiple wide bore narrowings in the bulbar urethra without focal or significant stricture disease; he had [id number] lateral lobe hyperplasia with an elevated bladder neck. Bladder mucosa demonstrated patchy hyperemia and debris within the urinary bladder consistent with his known urinary tract infection. Cultures pending. Patient feels much better and is eager for discharge. He overall did well and was able to be discharged on 09/11/25. Discharge instructions discussed in detail including new medications and side effects. All questions answered. Status at Discharge Cognitive/behavioral status at discharge: stable Time Spent with Patient Time attestation: Total time spent providing and/or coordinating discharge services: 34 minutes Time spent: Greater than 30 minutes Exam Narrative: AF 97.7 141/89 94 18 96% ra Gen - NARD Chest - CTA bilaterally, nml RR CV - RRR S1/S2 Abd - Soft, NT/ND, Positive BS Ext - No pedal edema Neuro - Alert and appropriate Psych - Nml mood and affect Skin - Warm and dry DS: Data Data Completed and Pending Labs on day of discharge: Labs from last 24 hours 09/11/25 07:09 WBC 6.8 RBC 4.88 Hgb 14.7 Hct 45.5 MCV 93.2 MCH 30.1 MCHC 32.3 RDW 13.4 Plt Count 216 MPV 9.4 Sodium 135 L Potassium 3.8 Chloride 100 Carbon Dioxide 29 Anion Gap 6 BUN 21 H Creatinine 1.14 Estim Creat Clear Calc 73 Estimated GFR > 60 Glucose 78 Calcium 8.7 Preliminary micro results at discharge 09/09/25 16:53 - Preliminary Urine Clean Catch Discharge Plan Discharge Attending physician on discharge: Srinivasan Fairchild Consulting providers: Conrad Lundberg Discharging Clinician: Srinivasan Fairchild Anticipated Discharge Date/Time: 09/11/25 13:23 Patient Disposition: Home Activity: as tolerated Diet: regular Discharge Instructions: Please complete your antibiotic course even if you are starting to feel well. Contact your doctor or call 911 and come to the Emergency Room if you have fevers, worsening abdominal/flank pain or other worrisome symptoms. Avoid NSAIDs (ibuprofen, naproxen, Aleve). Tylenol is safe to take. Follow-up with your primary care provider in 1-2 weeks. Please call for appointment. Follow-up with Urology as arranged. Thank you for using [facility] for your health care needs. Patient Instructions: Antibiotic Form Patient Language: Pakistani Stand Alone Forms: General Discharge Information Follow-up/Referrals: Conrad Lundberg MD [Physician, Urology] - Call for Appointment Altaf,ROXY Morrison [Primary Care Provider, Unknown] - Call for Appointment Discharge Medications: New cephalexin 500 mg capsule 500 mg PO Q8H 5 Days Qty: 15 0RF Continued bupropion HCl 300 mg tablet extended release 24 hr 300 mg PO QAM cholecalciferol (vitamin D3) 125 mcg (5,000 unit) capsule 125 mcg PO DAILY omega-3 fatty acids-fish oil [Fish Oil] 360-1,200 mg capsule 1 cap PO DAILY glucosamine-chondroitin 900 mg tablet 900 mg PO DAILY acetaminophen [Tylenol Extra Strength] 500 mg tablet 1,000 mg PO TID PRN (Reason: pain) Qty: 30 0RF fexofenadine [Herlinda Allergy] 60 mg Tablet 180 mg PO DAILY meloxicam 15 mg tablet 15 mg PO DAILY testosterone cypionate 200 mg/mL oil 100 mg IM .biweekly Rx Instructions: tuesday every 2 weeks vitamin B complex [Super B-50 Complex] Capsule 1 cap PO DAILY escitalopram oxalate 20 mg tablet 20 mg PO DAILY thyroid (pork) [Cameron Thyroid] 60 mg tablet 60 mg PO DAILY fluticasone propionate 50 mcg/actuation spray,suspension 2 spray INTRANASAL Q12H PRN (Reason: congestion) tamsulosin 0.4 mg capsule 0.4 mg PO Q24H magnesium oxide 400 mg magnesium capsule 400 mg PO DAILY calcium carb-D3-mag [id number] 333 mg-200 unit -133 mg-5 mg tablet 1 tablet PO DAILY Rx Instructions: administer with a meal zinc gluconate 50 mg tablet 50 mg PO ONCE triamcinolone acetonide 0.1 % cream 1 applic topical BID Discontinued caffeine 200 mg tablet 200 mg PO BID PRN (Reason: drowsiness) Date of admission: 09/09/25 20:33 Primary Care Provider: Altaf,Tamiko Admitting Provider: Maria Del Rosario Cole Attending physician on admission: Maria Del Rosario Cole Condition: Stable Hospitalist MIPS Heart Failure (Exclusion) Patient has history of Heart Transplant or Left Ventricular Assistive Device?: No IF YES, STOP HERE Heart Failure (Qualifier) Patient has current or prior documentation of LVEF less than or equal to 40%, or mod/servere depressed LVSF?: No IF NO, STOP HERE
--- NOTE | 2025-09-11 13:35 | WPDUROPN2 ---
Progress Note: A&P Assessment and Plan (1) Nephrolithiasis: Code(s): N20.0 - Calculus of kidney Status: Acute Assessment and Plan: - CT A/P reviewed with pt confirming Right 9 mm proximal ureteral stone -POD 1 1. Cystoscopy 2. Right retrograde pyelogram with intraoperative interpretation 3. Stone manipulation without extraction 4. Right ureteral stent placement -plan for outpatient stone management in the coming weeks after resolution of infection. -culture driven antibiotics per primary service. (2) Hydronephrosis: Qualifiers: Hydronephrosis type: with renal calculous obstruction Qualified Code(s): N13.2 - Hydronephrosis with renal and ureteral calculous obstruction Code(s): N13.30 - Unspecified hydronephrosis Status: Acute Assessment and Plan: - Creatinine wnl (3) UTI (urinary tract infection): Qualifiers: Urinary tract infection type: acute cystitis Hematuria presence: without hematuria Qualified Code(s): N30.00 - Acute cystitis without hematuria Code(s): N39.0 - Urinary tract infection, site not specified Status: Acute Assessment and Plan: - urine culture pending. - Continue broad spectrum Abx - Once UCx resulted transition to cover based on susceptibility profile Subjective Subjective Date/Time Seen: 09/11/25 13:35 Interval history: patient is doing well and denies any discomfort. discussed follow up in the coming weeks for stone management Review of Systems Review of Systems: All systems reviewed & are unremarkable except as noted in HPI and below Cardiovascular: Cardiovascular: Denies chest pain, Denies lightheadedness, Denies palpitations and Denies dyspnea Exam Const: General: comfortable and no acute distress HENMT: Mouth: Yes moist mucous membranes Eyes: Pupils: Equal, round and reactive pupils present Resp: Effort & Inspection: normal respiratory effort GI: GI Palp: Yes Soft to palpation Skin: General skin exam: normal color Neuro: Speech: normal speech Psych: Mental Status: mental status grossly normal Objective Data Vital Signs Vital Signs: Vital Signs - 24 hr 09/10/25 14:00 09/10/25 15:00 09/10/25 16:14 Temperature 98.9 F 98.6 F 97.3 F L Pulse Rate 96 100 97 Respiratory Rate 18 16 20 Blood Pressure 153/95 H 170/92 H 141/86 H Pulse Oximetry 95 96 95 Oxygen Delivery Room Air Simple Face Mask Oxygen Flow Rate 7 11/18/25 16:25 09/10/25 16:40 09/10/25 16:55 Temperature Pulse Rate 96 96 96 Respiratory Rate 20 20 19 Blood Pressure 154/96 H 150/99 H 117/83 Pulse Oximetry 95 94 91 Oxygen Delivery Simple Face Mask Room Air Room Air Oxygen Flow Rate 7 09/10/25 17:10 09/10/25 17:24 09/10/25 17:35 Temperature Pulse Rate 98 98 Respiratory Rate 20 21 H Blood Pressure 133/94 H 126/94 H Pulse Oximetry 92 95 Oxygen Delivery Room Air Room Air Room Air Oxygen Flow Rate 09/10/25 17:40 09/10/25 17:55 09/10/25 18:25 Temperature 97.3 F L 97.4 F L 97.9 F Pulse Rate 106 H 103 H 95 Respiratory Rate 20 20 18 Blood Pressure 130/90 139/94 H 135/90 Pulse Oximetry 95 93 93 Oxygen Delivery Oxygen Flow Rate 09/10/25 21:11 09/11/25 00:11 09/11/25 04:00 Temperature 99.6 F 98.8 F 98.6 F Pulse Rate 92 95 94 Respiratory Rate 16 16 16 Blood Pressure 139/90 129/78 126/81 Pulse Oximetry 96 94 95 Oxygen Delivery Oxygen Flow Rate 09/11/25 07:45 09/11/25 08:43 09/11/25 11:54 Temperature 97.6 F 97.7 F Pulse Rate 94 94 Respiratory Rate 18 18 18 Blood Pressure 140/86 141/89 H Pulse Oximetry 96 96 96 Oxygen Delivery Room Air Oxygen Flow Rate Intake/Output Intake/Output: Intake & Output 09/08/25 09/09/25 09/10/25 09/11/25 23:59 23:59 23:59 23:59 Intake Total 50 150 1580 Output Total 2 Balance 50 148 1580 Meds/Results Medications: Active Medications Generic Name Dose Route Start Last Admin Trade Name Freq PRN Reason Stop Dose Admin Hydrocodone Bitart/Acetaminophen 1 tab 09/10/25 03:51 09/11/25 05:31 Hydrocodone/Acetaminophen (*Crx) 5-325 Mg Tablet PO 1 tab Q4H PRN Administration Pain Rated 4-6 Bupropion HCl 300 mg 09/10/25 09:00 09/11/25 08:42 Bupropion Hcl Xl (24 Hr) 150 Mg Tabcr PO 300 mg QAM RHONDA Administration Escitalopram Oxalate 20 mg 09/10/25 09:00 09/11/25 08:43 Escitalopram Oxalate 10 Mg Tablet PO 20 mg DAILY RHONDA Administration Fentanyl Citrate 25 mcg 09/10/25 15:30 Fentanyl Citrate Inj (*Crx) 100 Mcg/2 Ml Vial IV PUSH Q2M PRN Pain Fluticasone Propionate 2 spray 09/10/25 09:48 Fluticasone Propionate 0.05% Na Spr 16 Gm Btl (*Bkc) NASAL Q12H PRN Congestion Hydralazine HCl 10 mg 09/10/25 09:54 Hydralazine Hcl 20 Mg/Ml Vial IV PUSH Q8H PRN Blood Pressure - High Hydromorphone HCl 1 mg 09/10/25 03:50 09/11/25 00:11 Hydromorphone Hcl Inj (*Crx) 1 Mg/Ml Syr IV PUSH 1 mg Q3H PRN Administration Pain Rated 7-10 Ceftriaxone Sodium 1 gm/ 50 mls @ 100 mls/hr 09/10/25 21:00 09/10/25 21:08 Sodium Chloride IVPB Infused Q24H RHONDA Infusion Ondansetron HCl 4 mg 09/10/25 15:30 Ondansetron Inj 4 Mg/2 Ml Vial IV PUSH ONCE PRN Nausea Tamsulosin HCl 0.4 mg 09/10/25 21:00 09/10/25 20:38 Tamsulosin Hcl 0.4 Mg Capsule PO 0.4 mg Q24H RHONDA Administration Thyroid 60 mg 09/11/25 06:30 09/11/25 05:31 Thyroid 30 Mg Tablet PO 60 mg DAILY@0630 RHONDA Administration Radiology Results: ITS Impressions Abdomen/Pelvis CT 09/09/25 18:52 IMPRESSION: 1. Limited noncontrast examination is not optimal for evaluation of solid viscera, neoplasms and vascular structures. 2. Bilateral intrarenal calculi as described above. 3. 9 mm size calculus in the proximal right ureter at the L2 level causing moderately significant right hydronephrosis. 4. Degenerative disc disease at L4-5 level. Retrograde Pyelogram 09/10/25 16:27 IMPRESSION: As above. No radiologist present for this procedure. See also procedure/operative notes for complete evaluation. Labs Labs: Laboratory Results - last 24 hr 09/11/25 07:09 WBC 6.8 RBC 4.88 Hgb 14.7 Hct 45.5 MCV 93.2 MCH 30.1 MCHC 32.3 RDW 13.4 Plt Count 216 MPV 9.4 Sodium 135 L Potassium 3.8 Chloride 100 Carbon Dioxide 29 Anion Gap 6 BUN 21 H Creatinine 1.14 Estim Creat Clear Calc 73 Estimated GFR > 60 Glucose 78 Calcium 8.7
--- NOTE | 2025-09-13 08:26 | PC.NURSE ---
Urine cx growing Coag negative Staph. Pt dc on Cephalexin which is susceptible as Oxacillin. Dr. Fairchild reviewed findings.
--- NOTE | 2025-09-17 09:56 | PC.NURSE ---
Called and spoke with patient. Having increased hematuria with needing to urinate every 20 minutes. He is going to Urology office today to speak with them regarding this. Very pleased with his care he received from Dr. Fairchild. Will start new antibiotic today.
== END 2025-09-11 14:00 | disposition home or self-care (01) ==
LOC: ANHED 20:57 → ANH3MEDSUR 09-10 07:29
PROVIDERS: Emergency Medicine; Nurse Practitioner; Urology; Admitting Provider Student in an Organized Health Care Education/Training Program; PCP Physician Assistant; Visit Provider Internal Medicine
PROC: (CPT 52352; principal; 2025-09-10 16:30)
DX: N13.2 Hydronephrosis with renal and ureteral calculous obstruction (principal); N30.00 Acute cystitis without hematuria; I10 Essential (primary) hypertension; M51.369 Other intervertebral disc degeneration, lumbar region without mention of lumbar back pain or lower extremity pain; E03.9 Hypothyroidism, unspecified; F32.A Depression, unspecified; J45.909 Unspecified asthma, uncomplicated; M19.90 Unspecified osteoarthritis, unspecified site; G47.33 Obstructive sleep apnea (adult) (pediatric); E66.9 Obesity, unspecified; Z68.31 Body mass index [BMI] 31.0-31.9, adult; Z86.0101 Personal history of adenomatous and serrated colon polyps; Z87.442 Personal history of urinary calculi; Z79.1 Long term (current) use of non-steroidal anti-inflammatories (NSAID); Z79.51 Long term (current) use of inhaled steroids; Z79.52 Long term (current) use of systemic steroids; Z79.890 Hormone replacement therapy; Z82.3 Family history of stroke; Z84.19 Family history of other disorders of kidney and ureter; Z81.8 Family history of other mental and behavioral disorders; Z83.49 Family history of other endocrine, nutritional and metabolic diseases; Z83.3 Family history of diabetes mellitus; Z80.0 Family history of malignant neoplasm of digestive organs; Z80.51 Family history of malignant neoplasm of kidney; Z82.49 Family history of ischemic heart disease and other diseases of the circulatory system
CPT/HCPCS: 52330; 52332; 36415; 74176; 74420; 80048; 80053; 81001; 83605; 83690; 85025; 85027; 87040; 87086; 87147; 87186; 96365; 99285; A9270; C1758; C1769; C2617; G0378; J0330; J0696; J1171; J2405; J2704; J7120; Q9966

== ENCOUNTER 2025-10-08 02:02 | Day surgery (SDC) | payer OTHER, SELFPAY ==
[2025-10-04 09:25] VITALS: BMI 31.4
--- NOTE | 2025-10-04 09:35 | SUR.PREOP ---
[facility] has started construction of its new state of the art ER which will open Spring 2026. With this, we anticipate parking may be a challenge for some our surgical patients and families. Parking spaces are limited but are available for all Surgical, obstetrics, and ER patients sharing this lot. If you arrive and find you are having a hard time finding a parking space, please note that we understand the challenges, please drive around the hospital and park near Hospital Entrance 1. When you enter this entrance, you can ask a volunteer to direct or take you back to the surgical waiting area to check in. We appreciate everyone?s understanding of these expected challenges while we build for your future. Report to the Outpatient Waiting Room, entrance under the green pavilion located off [address], at time 6:30a.m. on date 10/08/2025. Planned Procedure Time: 8:30a.m.? Time changes happen often and if your time is changed the preop area will call you the afternoon before. - You and your visitor will be asked to self-screen and do not enter if you have any COVID symptoms. Please call surgeon if you need to reschedule. - A mask is optional within the hospital at this time. Patients may have clear liquids (water, carbonated beverages, clear teas, apple juice) until 3 hours prior to surgery with a maximum of 20 ounces. - No food from midnight until time of surgery and no smoking, or chewing tobacco (or any form of nicotine). No chewing gum, candy or mints. Take only the following medications with a SIP of water on the morning of surgery: bupropion, escitalopram DO NOT STOP ANY OF YOUR OTHER PRESCRIPTION MEDICATIONS PRIOR TO SURGERY EXCEPT THE FOLLOWING Hold all vitamins and supplements for 3 days per anesthesiologist. 10/05/25 is the day you need to stop all vitamins and supplements Please no make-up, nail belizean, hairspray, perfume, deodorant, or body powder the day of surgery.? No jewelry (including any body piercings) or valuables the day of surgery, leave them at home.? Please take a shower or bath the night before, or the morning of, surgery with an antibacterial soap.? Wear comfortable, loose fitting clothing.? Children are encouraged to wear pajamas. - Jewelry must be removed prior to entering the operating room.? Rings and piercings that are not removed may be cut off. - The hospital will not accept responsibility for valuables.? - Please leave all valuables, including medications, at home the day of surgery. If you are going home after surgery, a licensed regional otr company driver must drive you home.? - NO public transportation without another adult if you receive anesthesia. - We recommend that an adult stay with you for 24 hours following discharge. - We also recommend that you do not drive, make important decision, drink alcoholic beverages, or take any drugs that were not prescribed by your health care provider for at least 24 hours after your discharge time. Follow any additional instructions given to you from your surgeon. Telephone instructions given to Rah Chang and asked if any additional questions and then verbalized understanding. Patient advised to call surgeon office or pre surgery nurse liaison [phone] if any additional questions.
[2025-10-08] VITALS (14 sets, daily range): BP systolic 138–171; BP diastolic 78–104; PULSE 69–119; RESP 17–25; TEMP 36.4–36.8; O2SAT 90–97; BMI 32.1
--- NOTE | ~2025-10-08 | XR_ITS ---
EXAMINATION: XR retrograde pyelo w/stent RT DATE: 10/08/2025 09:10 INDICATION: Right retrograde internal ureteral stent exchange TECHNIQUE: 2 fluoroscopic images of the abdomen and pelvis were obtained procedure performed by Dr. Lundberg. Radiologist was not present for the imaging or procedure. The amount of fluoroscopy time used during this procedure was 0.6 minutes. The dose area product was 0.797 mGym^2. COMPARISON: None. FINDINGS: Images demonstrate a right internal ureteral stent with proximal loop formed in an upper pole calyx of the right kidney and distal loop projecting over the bladder. Injected contrast in the right renal collecting system demonstrates mild right hydronephrosis. IMPRESSION: 1. Right internal ureteral stent in expected position. See procedure note for further detail. Reviewed, dictated and finalized at location A. EXPERT IMPRESSION: 1. Right internal ureteral stent in expected position. See procedure note for f urther detail.
--- OUTSIDE RECORDS SUMMARY | 2025-10-08 02:05 | XMS_ITS | Encounter Summary ---
Author Organization [facility] Healthcare Address [address] [place] [address] Care Team Providers Care Living Specialist Name Role Phone Tamiko Solitario Primary Care Provider [phone]- [phone] Encounter Details Date Type Department Care Team (Late st Contact Info) Description 09/09/2025 Orders Only [facility] [place] Health Information Management [address] [place] [id number] Scanning, Provider Social History Tobacco Use Types Packs/Day Years Used Date Smoking Tobacco: Never Smokeless Tobacco: Never Alcohol Use Standard Drinks/Week Comments Never 0 (1 standard drink = 0.6 oz pur e alcohol) AUDIT-C Answer Date Recorded Q1: How often do you have a drink containing alcohol? Never 05/01/2025 Q2: How many drinks containi ng alcohol do you have on a typical day when you are drinking? Patient does not drink Q3: How often do you have si x or more drinks on one occasion? 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 Not on file Not on file documented as of this encounter Plan of Treatment Not on file documented as of this encounter Procedures Procedure Name Priority Date/Time Associated Diagnosis Comments SCAN - RADIOLOGY/IMAGING 09/09/2025 documented in this encounter Results * SCAN - RADIOLOGY/IMAGING (09/09/2025) Anatomical Region Laterality Modality Other us Provider Scanning Final Result documented in this encounter Visit Diagnoses Not on filedocumented in this encounter Care Teams Living Specialist Relationship Specialty Start Date End Date Tamiko Solitario PA [address] [place] [address] PCP - General Internal Medicine 02/01/19 documented as of this encounter
--- OUTSIDE RECORDS SUMMARY | 2025-10-08 02:05 | XMS_ITS | Encounter Summary ---
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 Not on file Not on file documented as of this encounter Plan of Treatment Not on file documented as of this encounter Procedures Procedure Name Priority Date/Time Associated Diagnosis Comments SCAN - LABS 09/10/2025 documented in this encounter Results * SCAN - LABS (09/10/2025) us Provider Scanning Edited Result - Final documented in this encounter Visit Diagnoses Not on filedocumented in this encounter Care Teams Vp Ancillary Relationship Specialty Start Date End Date Tamiko Solitario PA [address] [facility] [address] [place] [address] PCP - General Internal Medicine 02/01/19 documented as of this encounter
--- OUTSIDE RECORDS SUMMARY | 2025-10-08 02:05 | XMS_ITS | Encounter Summary ---
Author Organization [facility] Healthcare Address [address] [place] [address] Care Team Providers Care Charge Entry Name Role Phone Tamiko Solitario Primary Care Provider +1- [phone] Encounter Details Date Type Department Care Team (Late st Contact Info) Description 12/14/2024 Orders Only [facility] [place] Information Management [address] [place] [id number] Scanning, Provider Social History Tobacco Use Types [...] Date Recorded PHQ-2 Total Score 17 06/20/2024 PHQ-9 Answer Date Recorded PHQ-9 Total Score 17 06/20/2024 Sex and Gender Information Value Date Recorded Sex Assigned at Not on file 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 Gender Identity Male 08/04/2021 1:13 PM CDT Sexual Orientation Not on file 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 Not on file Not on file documented as of this encounter Plan of Treatment Not on file documented as of this encounter Procedures Procedure Name Priority Date/Time Associated Diagnosis Comments SCAN - RADIOLOGY/IMAGING 12/14/2024 documented in this encounter Results * SCAN - RADIOLOGY/IMAGING (12/14/2024) Anatomical Region Laterality Modality Other us Provider Scanning Final Result documented in this encounter Visit Diagnoses Not on filedocumented in this encounter Care Teams Charge Entry Relationship Specialty Start Date End Date Tamiko Solitario PA [address] [facility] [address] [place] [phone] PCP - General Internal Medicine 02/01/19 documented as of this encounter
--- OUTSIDE RECORDS SUMMARY | 2025-10-08 02:05 | XMS_ITS | Clinical Summary ---
Author Organization [facility] Address [address] [address] [address] Phone Care Team Providers Care Clinical Partner Name Role Phone Tamiko Solitario PAC Primary Care Provider +1- [phone] Social History Tobacco Use Types Packs/Day Years Used Date Smoking Tobacco: Never Assessed Sex and Gender Information Value Date Recorded Sex Assigned at Not on file Legal Sex Male 12:39 AM CDT Gender Identity Not on file Sexual Orientation Not on file Plan of Treatment Health Maintenance Due Date Last Done Comments Hepatitis C Virus (HCV) Screening 1965 TdaP Immunization 1965 Cologuard 2008 Immunochemical Fecal Occult Blood 2008 Pneumococcal Immunization (5 0+ years) (1 of 1 - PCV) 2013 Zoster Immunization (1 of 2) 2013 Colonoscopy 01/02/2025 01/03/2020 Colorectal Cancer Screening 01/02/2025 Influenza Immunization (#1) 2025 SARS-COV-2 Immunization ( - season) 2025 Respiratory Syncytial Virus (RSV) Immunization (Adult) (1 - 1-dose 75+ series) 2038 Hepatitis B Immunization Aged Out No longer eligible based on patient's age to complete this topic Human Papillomavirus (HPV) Immunization Aged Out No longer eligible b ased on patient's age to complete this topic [...] Recently Relevant to Health Maintenance Care Teams Clinical Partner Relationship Specialty Start Date End Date Tamiko Solitario, PAC PCP - General Physician Mortgage Closing Clerk 01/09/20
--- OUTSIDE RECORDS SUMMARY | 2025-10-08 02:05 | XMS_ITS | Encounter Summary ---
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
--- OUTSIDE RECORDS SUMMARY | 2025-10-08 02:05 | XMS_ITS | Encounter Summary ---
Author Organization [facility] Healthcare Address [address] [place] [address] Care Team Providers Care Log Operations Coordinator Name Role Phone Tamiko Solitario Primary Care Provider +1- [phone] Encounter Details Date Type Department Care Team (Late st Contact Info) Description 09/23/2025 Results Follow-Up [facility] Family Medicine [address] [place] [address] Tamiko Solitario PA [address] [facility] [address] [place] [address] TSH, Uric acid, PTH, Additional followed-up results: 2 Social History Tobacco Use Types Packs/Day Years [...] on file 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
--- OUTSIDE RECORDS SUMMARY | 2025-10-08 02:05 | XMS_ITS | Encounter Summary ---
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 [employer] Gender Identity Male 08/04/2021 1:13 PM CDT Sexual Orientation Not on file 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 Not on file Not on file documented as of this encounter Plan of Treatment Not on file documented as of this encounter Procedures Procedure Name Priority Date/Time Associated Diagnosis Comments SCAN - LABS 12/17/2024 documented in this encounter Results * SCAN - LABS (12/17/2024) us Provider Scanning Edited Result - Final documented in this encounter Visit Diagnoses Not on filedocumented in this encounter Care Teams Corner Former Relationship Specialty Start Date End Date Tamiko Solitario PA [address] [facility] [address] [place] [address] PCP - General Internal Medicine 02/01/19 documented as of this encounter
--- OUTSIDE RECORDS SUMMARY | 2025-10-08 02:05 | XMS_ITS | Clinical Summary ---
Author Organization [facility] [address] [facility] Address [address] [place] [address] Care Team Providers Care Tool Maker Bench Name Role Phone Tamiko Solitario Primary Care Provider [phone] Allergies Active Allergy Reactions Criticality Noted Date Comments Levothyroxine Itching Low 02/05/2025 Medications fexofenadine (HERLINDA) 180 mg tablet 1 tablet (180 mg total) daily Active vitamin B complex capsule Rx: Vitamin B Complex-C - Capsule Active cyanocobalamin 2,000 mcg tablet daily Active BD LUER-KAYLEEN SYRINGE 3 mL 23 x 1 syringe USE WEEKLY WITH TESTOSTERONE 12 Syringe 3 9 Active testosterone cypionate (DEPO-TESTOTERO NE) 200 mg/mL injection Inject 0.5 mL (100 mg total) into the muscle as instructed once a week 6 mL 1 9 Active triamcinolone (KENALOG) 0.1 % cream Apply topically 2 (two) times a day as needed for irritation 45 g 3 Active zinc gluconate 50 mg tablet Take 1 tablet (50 mg total) by mouth daily Active omega 6-oww-npp-fish oil 1,000 mg (120 mg-180 mg) capsule Active wnulzfzu-czcx-e ky5-Y-pmun-bosw 750 mg-644 mg- 30 mg-1 mg tablet Take by mouth Active calcium khvg-R2-cwdufne um glo 133 mg calcium -133 unit-67 mg capsule Take by mouth Active magnesium oxide 400 mg magnesium capsule Take 1 capsule by mouth daily Active [employer]RECTIONAL SUPER[employer]OR LIEUTENANT Thyroid 60 mg tablet TAKE 1 TABLET BY MOUTH EVERY DAY 90 tablet 1 5 Active meloxicam (MOBIC) 15 mg tabletIndicatio ns:Right sided sciatica TAKE 1 TABLET BY MOUTH EVERY DAY 30 tablet 5 5 Active escitalopram (LEXAPRO) 20 mg tablet Take 1 tablet (20 mg total) by mouth daily 90 tablet 1 5 Active Additional Information Patient taking differently: 30 mgoral Daily, Reported on 09/13/2025 buPROPion XL (WELLBUTRIN XL) 300 mg 24 hr tablet TAKE 1 TABLET BY MOUTH EVERY DAY IN THE MORNING 90 tablet 1 5 Active fluticasone propionate (FLONASE) 50 mcg/actuation nasal sprayIndication s:Acute maxillary sinusitis, recurrence not specified SPRAY 2 SPRAYS INTO EACH NOSTRIL EVERY DAY 48 mL 1 5 Active cephalexin (KEFLEX) 500 mg capsule Take 1 capsule (500 mg total) by mouth 5 Active cyclobenzaprine (FLEXERIL) 10 mg tabletIndicatio ns:Left shoulder pain, unspecified chronicity,Righ t shoulder pain, unspecified chronicity,Inte rnal derangement of right shoulder Take 0.5 tablets (5 mg total) by mouth 3 (three) times a day as needed for muscle spasms 30 tablet 5 Active sulfamethoxazol e-trimethoprim (BACTRIM) 800-160 mg per tabletIndicatio ns:Urinary tract infection with hematuria, site unspecified,Pos itive blood culture Take 1 tablet by mouth 2 (two) times a day for 7 days 14 tablet 5 025 Active Problems Problem Noted Date Diagnosed Date Left shoulder pain 09/13/2025 Right shoulder pain 09/13/2025 Internal derangement of right shoulder 5 Complete tear of left rotator cuff 09/13/2025 Obesity (BMI 30.0-34.9) 02/17/2025 Assessment & Plan (05/01/2025 9:39 AM CDT): Discussed the patient's BMI. The BMI is above average. BMI management plan is completed. BMI Follow-up includes: nutrition counseling, exercise counseling and education provided. Assessment & Plan (02/17/2025 12:24 AM CDT): Discussed the patient's BMI. The BMI is above average. BMI management plan is completed. BMI Follow-up includes: nutrition counseling, exercise counseling and education provided. Kidney stones 02/04/2025 Assessment & Plan (02/17/2025 12:29 AM CDT): Continue per Dr. Naila De's. He is managing the kidney stones Pre-diabetes 02/04/2025 Assessment & Plan (02/17/2025 12:29 AM CDT): Pre-diabetes/hyperglycemia is a precursor to Dm. Stressed importance of working on diet (decrease your simple sugars and one carbohydrate with each meal) and increase you exercise to achieve weight loss and this will help prevent you from progressing to diabetes. BMI 30.0-30.9,adult 06/15/2023 Assessment & Plan (05/01/2025 9:39 AM CDT): Discussed the patient's BMI. The BMI is above average. BMI management plan is completed. BMI Follow-up includes: nutrition counseling, exercise counseling and education provided. Assessment & Plan (02/05/2025 7:40 AM CDT): Discussed the patient's BMI. The BMI is above average. BMI management plan is completed. BMI Follow-up includes: nutrition counseling, exercise counseling and education provided. Assessment & Plan (06/20/2024 5:27 PM CDT): Discussed the patient's BMI. The BMI is above average. BMI management plan is completed. BMI Follow-up includes: nutrition counseling, exercise counseling and education provided. Assessment & Plan (02/17/2024 2:56 PM CDT): Weight/BMI is in healthy range. Continue healthy lifestyle to maintain. Assessment & Plan (12/31/2023 3:02 PM LABORER/KEY MAN): Discussed the patient's BMI. The BMI is [...] Annual physical exam 12/10/2021 Assessment & Plan (02/17/2025 12:28 AM CDT): Encouraged healthy lifestyle, good nutrition and exercise. Encouraged Calcium and Vitamin D and weight bearing exercise for bone health. Reviewed immunizations Reviewed age appropirate screenings. Assessment & Plan (06/20/2024 8:59 AM CDT): Encouraged healthy lifestyle, good nutrition and exercise. Encouraged Calcium and Vitamin D and weight bearing exercise for bone health. Reviewed immunizations Reviewed age appropirate screenings. Assessment & Plan (12/31/2023 2:58 PM LABORER/KEY MAN): Encouraged healthy lifestyle, good nutrition and exercise. Encouraged Calcium and Vitamin D and weight bearing exercise for bone health. Reviewed immunizations Reviewed age appropirate screenings. Assessment & Plan (12/15/2022 9:24 AM LABORER/KEY MAN): Encouraged healthy lifestyle, good nutrition and exercise. Encouraged Calcium and Vitamin D and weight bearing exercise for bone health. Reviewed immunizations Reviewed age appropirate screenings. Assessment & Plan (12/10/2021 6:28 PM LABORER/KEY MAN): Encouraged healthy lifestyle, good nutrition and exercise. Encouraged Calcium and Vitamin D and weight bearing exercise for bone health. Reviewed immunizations Reviewed age appropirate screenings. Right sided sciatica 05/30/2020 Assessment & Plan (05/30/2020 7:55 PM CDT): NSAIDs prn ICE/heat Exercise/activity, do not sit/lay around excessively Encouraged PT. . Family history of colon cancer 05/22/2019 Assessment & Plan (02/17/2025 12:28 AM CDT): Continue with close colon cancer monitoring. His last 1 was in 2019 and was normal but recommendation will be in 5 years, 2024 due to family history. Will make referral to Dr. Erik selby as his last 1 was done up at [facility] by Dr. Jhaveri Assessment & Plan (06/20/2024 8:57 AM CDT): Next colonoscopy is due in December of 2024. Will refer to his next visit as he prefers to see Dr. Erik selby us at [facility]. Assessment & Plan (07/07/2019 10:26 AM CDT): Pt has made contact with Dr. Jhaveri again for followup colonoscopy. He plans to repeat in the new year. Assessment & Plan (05/22/2019 8:21 AM CDT): Refer back to Dr. Jhaveri for repeat colonoscopy Seasonal allergies 04/06/2019 Assessment & Plan (02/17/2025 12:24 AM CDT): Allergy symptoms are stable with Herlinda and Flonase and albuterol PRN Assessment & Plan (06/20/2024 8:58 AM CDT): Continue allergy regimen with Herlinda albuterol and Flonase Assessment & Plan (12/31/2023 3:01 PM LABORER/KEY MAN): Continue with allergy regimen Assessment & Plan (06/04/2021 6:42 AM CDT): Stable with current otc regimen Assessment & Plan (12/01/2020 8:27 AM LABORER/KEY MAN): Continue otc prn Assessment & Plan (07/07/2019 10:27 AM CDT): Stable with current regimen. Acquired hypothyroidism 07/03/2018 Assessment & Plan (02/17/2025 12:27 AM CDT): Continue levothyroxine. Monitor labs. Patient would like to transition away from the [place] due to cost. Will try CORRECTIONAL SUPERVISOR LIEUTENANT thyroid port of the pharmacist recommendation. Assessment & Plan (06/20/2024 5:27 PM CDT): Continue [place] 60 mg. Monitor labs. Assessment & Plan (12/31/2023 2:59 PM LABORER/KEY MAN): Continue levothyroxine. Monitor labs. Assessment & Plan (06/15/2023 10:22 PM CDT): Continue levothyroxine. Monitor labs. Assessment & Plan (12/15/2022 9:23 AM LABORER/KEY MAN): Continue levothyroxine. Monitor labs. Assessment & Plan (12/10/2021 6:23 PM LABORER/KEY MAN): Continue levothyroxine. Monitor labs. Assessment & Plan (06/04/2021 6:41 AM CDT): Continue levothyroxine. Monitor labs. Assessment & Plan (12/01/2020 8:27 AM LABORER/KEY MAN): Check labs. Continue [place] Assessment & Plan (04/28/2020 8:30 AM CDT): Due to check labs. Continue replacement Assessment & Plan (11/26/2019 9:13 AM LABORER/KEY MAN): Continue replacement Assessment & Plan (07/07/2019 10:25 AM CDT): Stable. Continue replacement Assessment & Plan (05/22/2019 8:11 AM CDT): Continue with the [place]. Check the labs prn Hypogonadism in male 07/03/2018 Assessment & Plan (02/17/2025 12:27 AM CDT): Continue testosterone replacement per Neurology in [place]. Assessment & Plan (06/20/2024 8:58 AM CDT): Continue with urology for testosterone injections Assessment & Plan (12/31/2023 2:59 PM LABORER/KEY MAN): Continue testosterone supplement per Urology Assessment & Plan (12/15/2022 9:23 AM LABORER/KEY MAN): Continue per Urology for management of his hypogonadism and testosterone replacement Assessment & Plan (12/10/2021 6:23 PM LABORER/KEY MAN): Continue Testosterone replacement managed by Urology Assessment & Plan (06/04/2021 6:41 AM CDT): Continue testosterone injections per Urology Assessment & Plan (12/01/2020 10:32 AM LABORER/KEY MAN): Managed by Urology Assessment & Plan (04/28/2020 8:30 AM CDT): Managed by Urology Assessment & Plan (11/26/2019 9:12 AM LABORER/KEY MAN): Continue the replacement Assessment & Plan (07/07/2019 10:24 AM CDT): Stable with testosterone replacement Assessment & Plan (05/22/2019 8:11 AM CDT): Continue the supplement Moderate episode of recurrent major depressive d isorder 05/30/2017 Assessment & Plan (02/17/2025 12:24 AM CDT): Depression symptoms seem to be stable with the Wellbutrin and Lexapro. Refills available at pharmacy Assessment & Plan (06/20/2024 8:59 AM CDT): [...] important Assessment & Plan (12/31/2023 3:02 PM LABORER/KEY MAN): Stable with Wellbutrin and Lexapro Assessment & [...] time. Assessment & Plan (12/15/2022 9:23 AM LABORER/KEY MAN): Continue Wellbutrin and Lexapro Assessment & Plan (12/10/2021 6:22 PM LABORER/KEY MAN): Patient is having increased depression sxs. He denies any suicidal or homocidal thoughts. Continue LExapro 20 Increase WellbutrinXL 300mg He is to call if he notes increase in sxs or if his sxs don't respond to the dose increase. Assessment & Plan (06/04/2021 6:42 AM CDT): Stable with wellbutrin and lexapro Assessment & Plan (12/01/2020 8:27 AM LABORER/KEY MAN): Continue lexapro and Wellbutrin Assessment & Plan [...] understanding. Assessment & Plan (11/26/2019 9:18 AM LABORER/KEY MAN): Stable with the Lexapro. Assessment & Plan [...] Problem Noted Date Diagnosed Date Resolved Date Diabetes mellitus screening 06/20/2024 02/04/2025 Assessment & Plan (06/20/2024 5:27 PM CDT): Check labs Left thigh pain 02/17/2024 06/20/2024 Assessment & [...] He is in agreement with the plan Elevated hemoglobin 12/31/2023 02/05/20 25 Assessment & Plan (06/20/2024 5:27 PM CDT): Elevated hemoglobin. Recheck labs. Maybe secondary to his testosterone Assessment & Plan (12/31/2023 3:04 PM LABORER/KEY MAN): Patient has elevated hemoglobin. Check iron indices. He declines any knowledge of hemochromatosis in the family BMI 32.0-32.9,adult 06/15/2023 02/17/20 24 Assessment & Plan (12/31/2023 3:02 PM LABORER/KEY MAN): Discussed the patient's BMI. The BMI is [...] amounts of the triamcinolone with Lamisil available [id number] to use in the area until resolved. Stressed the importance of keeping the area clean and dry may even use a powder if needed. Call if symptoms worsen or do not resolve BMI 31.0-31.9,adult 12/15/2022 06/20/20 Assessment & Plan (02/17/2024 2:56 PM CDT): Weight/BMI is in healthy range. Continue healthy lifestyle to maintain. Assessment & Plan (12/15/2022 8:31 AM LABORER/KEY MAN): Discussed the patient's BMI. The BMI is above average. BMI management plan is completed. BMI Follow-up includes: nutrition counseling, exercise counseling and education provided. Obesity (BMI 30-39.9) 12/10/20212022 Assessment & Plan (12/15/2022 9:24 AM LABORER/KEY MAN): Discussed the patient's BMI. The BMI is above average. BMI management plan is completed. BMI Follow-up includes: nutrition counseling, exercise counseling and education provided. Assessment & Plan (12/10/2021 8:11 AM LABORER/KEY MAN): Obesity is unchanged. Discussed the patient's BMI. The BMI is above average. BMI management plan is completed. BMI Follow-up includes: nutrition counseling, exercise counseling and education provided. BMI 33.0-33.9,adult 12/10/2021 12/15/19 Assessment & Plan (12/10/2021 8:12 AM LABORER/KEY MAN): Obesity is unchanged. Discussed the patient's BMI. The BMI is above average. BMI management plan is completed. BMI Follow-up includes: nutrition counseling, exercise counseling and education provided. Prostate cancer screening 12/10/2021 Assessment & Plan (12/10/2021 6:26 PM LABORER/KEY MAN): Check labs Arthralgia 12/10/2021 06/20/2024 Assessment & Plan (12/10/2021 6:27 PM LABORER/KEY MAN): This is a significant, separately identifiable problem that was evaluated and managed on the same day as the wellness exam Patient is noting increased joint pain. Mother and sister both have RA. Will check labs and determine followup pending results. Acute non-recurrent frontal sinusitis 12/10/2021 12/15/2022 Assessment & Plan (12/10/2021 6:29 PM LABORER/KEY MAN): This is a significant, separately identifiable problem that was evaluated and managed on the same day as the wellness exam Start antibiotic, antihistamine (Claritin OR Zyrtec), Mucinex 12hour and Steroid nasal spray (Flonase). Push fluids. Rest. Supportive care. If sxs worsen or don\'t improve, pt is to followup in the office. Chronic nasal congestion 08/09/2021 Assessment & Plan [...] nutrition counseling, exercise counseling and education provided. Fatigue 06/04/2021 02/04/2025 Assessment & Plan (06/20/2024 5:27 PM CDT): Probably multifactorial. Check labs and followup to re-evaluate Assessment & Plan (12/15/2022 9:23 AM LABORER/KEY MAN): Probably multifactorial. Check labs and followup to re-evaluate Assessment & Plan (12/10/2021 6:26 PM LABORER/KEY MAN): Probably multifactorial. Check labs and followup to re-evaluate Assessment & Plan (06/04/2021 8:40 AM CDT): Probably multifactorial. Check labs and followup to re-evaluate Mixed hyperlipidemia 06/04/2021 025 Assessment & Plan (06/20/2024 5:27 PM CDT): Encouraged patient to follow low fat/low chol diet like the Mediterranean diet. Increase good fats in the diet. Increase exercise. Monitor labs as needed. Assessment & Plan (12/31/2023 2:59 PM LABORER/KEY MAN): Encouraged patient to follow low fat/low chol diet like the Mediterranean diet. Increase good fats in the diet. Increase exercise. Monitor labs as needed. Assessment & Plan (12/15/2022 9:23 AM LABORER/KEY MAN): Encouraged patient to follow low fat/low chol diet like the Mediterranean diet. Increase good fats in the diet. Increase exercise. Monitor labs as needed. Assessment & Plan (12/10/2021 6:26 PM LABORER/KEY MAN): Encouraged patient to follow fat/low chol diet like the Mediterranean diet. Increase good fats in the diet. Increase exercise. Monitor labs as needed. Assessment & Plan (06/04/2021 8:39 AM CDT): Encouraged patient to follow fat/low chol diet like the Mediterranean diet. Increase good fats in the diet. Increase exercise. Monitor labs as needed. Diabetes mellitus screening 06/04/2021 06/15/2023 Assessment & Plan (12/15/2022 9:24 AM LABORER/KEY MAN): Check labs Assessment & Plan (12/10/2021 6:26 PM LABORER/KEY MAN): Check labs Assessment & Plan (06/04/2021 8:39 AM CDT): Check labs BMI 34.0-34.9,adult 12/01/2020 06/04/20 21 Assessment & Plan (12/01/2020 8:03 AM LABORER/KEY MAN): Obesity is unchanged. Discussed the patient's BMI. The BMI is above average. BMI management plan is completed. BMI Follow-up includes: nutrition counseling, exercise counseling and education provided. Obesity (BMI 30-39.9) 12/01/20202020 Assessment & Plan (12/01/2020 8:03 AM LABORER/KEY MAN): Obesity is unchanged. Discussed the patient's BMI. The BMI is above average. BMI management plan is completed. BMI Follow-up includes: nutrition counseling, exercise counseling and education provided. Annual physical exam 11/28/2020 021 Assessment & Plan (12/01/2020 8:28 AM LABORER/KEY MAN): Encouraged healthy lifestyle, good nutrition and exercise. [...] 11/26/1912/31/2023 Assessment & Plan (12/10/2021 6:26 PM LABORER/KEY MAN): Bp is elevated today but he is on cold medication. Will have him start the Augmentin and stop all D products. He is to take his bp at work in 1 week to determine control. Assessment & Plan (12/01/2020 8:27 AM LABORER/KEY MAN): Stable without medication Assessment & Plan (11/26/2019 9:14 AM LABORER/KEY MAN): Pt to call with readings to see [...] provided. Assessment & Plan (11/26/2019 9:13 AM LABORER/KEY MAN): Obesity is unchanged. Discussed the patient's BMI. [...] Follow-up includes: Discussed diet and exercising counseling. BMI 32.0-32.9,adult 10/21/2018 02/06/20 25 Assessment & Plan (06/20/2024 5:26 PM CDT): [...] Encounters Date Type Department Care Team Description 09/23/2025 Results Follow-Up [facility] [address] [address] Tamiko Solitario PA TSH, Uric acid, PTH, Additional followed-up results: 2 09/20/2025 6:48 AM LABORER/KEY MAN - 09/20/2025 11:59 PM LABORER/KEY MAN Hospital Encounter [address] [address] Internal derangement of right shoulder Discharge Disposition: Discharge to home or self care 09/17/2025 Telephone [facility] [address] [place] [address] [address] [place] [address] Tamiko Solitario PA 09/13/2025 8:30 AM LABORER/KEY MAN Office Visit [facility] [address] [place] [phone] Mejia Baez PA Left shoulder pain, unspecified chronicity (Primary Dx); Complete tear of left rotator cuff, unspecified whether traumatic; Right shoulder pain, unspecified chronicity; Internal derangement of right shoulder 09/13/2025 8:08 AM LABORER/KEY MAN - 09/13/2025 11:59 PM LABORER/KEY MAN Hospital Encounter [facility] [address] [place] [id number] Left shoulder pain, unspecified chronicity; Right shoulder pain, unspecified chronicity Discharge Disposition: Discharge to home or self care 09/12/2025 Orders Only [address] [place] [address] Tamiko Solitario PA Kidney stones (Primary Dx); Acquired hypothyroidism 09/12/2025 Nurse Triage [facility] Patient Access [address] [place] [address] Ashley Brasher RN 09/12/[address] [place] [address] Tamiko Solitario PA 09/11/2025 Orders Only [facility] [address] [place] [address] Scanning, Provider 09/09/2025 Orders Only [facility] [address] [place] [address] Scanning, Provider 08/20/2025 Telephone [facility] [address] [place] [address] [address] [place] [address] Tamiko Solitario PA 08/15/2025 Telephone [facility] [address] [place] [address] Tamiko Solitario PA Referral Request 07/18/2025 Telephone [facility] [address] [facility] [address] [place] [address] Tamiko Solitario PA from Last 3 Months Immunizations Immunization Administration Dates Next Due Influenza, Quadrivalent, Lexis l Culture-based MDCK, Preservative Free, Antibiotic Free, Intramuscular 07/28/2018 Influenza, Quadrivalent, Spl it, Preservative Free, Intramuscular 09/28/2022,08/16/2021,07/31/2020,08/08,06/20/2017,06/20/2017,06/17/2017 Influenza, Trivalent, Cell Culture-based MDCK, Preservative Free, Antibiotic Free, Intramuscular 07/04/2025 Influenza, Trivalent, IM (MDV) 08/24/2018,2013 Influenza, Unspecified 10/24/2024(Deferr ed: Patient Refused),10/24/2023(Deferred: Patient Refused),10/24/2023(Deferred: Patient Refused),11/24/2022(Deferred: [...] on file Legal Sex Male 8:44 PM LABORER/KEY MAN Gender Identity Male 08/04/2021 1:13 PM CDT Sexual Orientation Not on file Occupation Industry Job Start Date Job End Date [employer] Not on file Not on file Not on file Last Filed Vital Signs Vital Sign Reading Time Taken Comments Blood Pressure 159/89 05/20/2025 1:35 PM CDT Pulse 82 05/20/2025 1:35 PM CDT Temperature 36.3 C (97.3 F) 05/12/2025 10:10 AM CDT Respiratory Rate 20 05/12/2025 10:10 AM CDT Oxygen Saturation 97% 05/12/2025 10:10 AM CDT Inhaled Oxygen Concentration - - Weight 104.3 kg (230 lb) 09/13/2025 8:29 AM LABORER/KEY MAN Height 180.3 cm (5' 11) 09/13/2025 8:29 AM LABORER/KEY MAN Body Mass Index 32.08 09/13/2025 8:29 AM LABORER/KEY MAN Plan of Treatment Health Maintenance Due Date Last Done Comments Hepatitis C Screening 1965 Hepatitis B Screening 1981 Prostate Cancer Screening-PSA 01/01/2024 12/31/2021, 10/20/2018 Covid-19 Vaccine ( season) 2025 09/09/2022, 09/08/2022, 08/16/2021, Additional history exists Regular Well Visit/Exam 18-64 02/05/2026 02/05/2025, 12/21/2023, 12/15/2022, Additional history exists Depression Screening 05/01/2026 05/01/2025, 02/05/2025, 06/20/2024, Additional history exists DTaP/Tdap/Td Vaccine (2 - Td or Tdap) 10/05/2028 10/05/2018 Colon Cancer Screening-Colonoscopy 04/15/2030 04/15/2025, 01/03/2020 Zoster Vaccine Completed 03/14/2021, 10/01/2020 Colon Cancer Screening-CT Colonography Discontinued 04/15/2025, 01/03/2020 Colon Cancer Screening-DNA Stool Discontinued 04/15/2025, 01/03/2020 Colon Cancer Screening-FIT Discontinued 04/15/2025, Colon Cancer Screening-Sigmoidoscopy Discontinued 04/15/2025, 01/03/2020 Influenza Vaccine Completed 07/04/2025, , 09/28/2022, Additional history exists Pneumococcal vaccine <65 Aged Out No longer eligible based on patient's age to complete this topic Procedures Procedure Name Priority Date/Time Associated Diagnosis Comments MRI SHOULDER RIGHT WO CONTRAST Schedule Routine, Read Routine (OP Routine) 09/20/2025 7:42 AM LABORER/KEY MAN Internal derangement of right shoulder CALCIUM, IONIZED Routine 09/17/2025 10:27 AM LABORER/KEY MAN Kidney stones Acquired hypothyroidism COMPREHENSIVE METABOLIC PANEL Routine 09/17/2025 10:27 AM LABORER/KEY MAN Kidney stones PTH Routine 09/17/2025 10:27 AM LABORER/KEY MAN Kidney stones Acquired hypothyroidism URIC ACID Routine 09/17/2025 10:27 AM LABORER/KEY MAN Kidney stones TSH Routine 09/17/2025 10:27 AM LABORER/KEY MAN Kidney stones Acquired hypothyroidism XR SHOULDER RIGHT 2 OR MORE VIEWS Schedule Routine, Read Routine (OP Routine) 09/13/2025 8:20 AM LABORER/KEY MAN Right shoulder pain, unspecified chronicity XR SHOULDER LEFT 2 OR MORE VIEWS Schedule Routine, Read Routine (OP Routine) 09/13/2025 8:20 AM LABORER/KEY MAN Left shoulder pain, unspecified chronicity SCAN - LABS 09/10/2025 SCAN - RADIOLOGY/IMAGING 09/09/2025 HM COLONOSCOPY Routine 04/15/2025 11:10 AM CDT PSA SCREEN Routine 12/31/2021 8:09 AM LABORER/KEY MAN from Last 3 Months or Most Recently Relevant to Health Maintenance Results * MRI Shoulder Right WO Contrast (09/20/2025 7:42 AM LABORER/KEY MAN) Anatomical Region Laterality Modality Upper Extremities Right Magnetic Reson ance 09/20/2025 10:2 3 AM LABORER/KEY MAN Impressions 09/20/2025 10:23 AM LABORER/KEY MAN 1. 2.6 x 2.5 cm full-thickness tear of the supraspinatus superimposed on cuff tendinosis. 2. Moderate right and infraspinatus cuff tendinosis with superimposed partial-thickness articular and interstitial tearing. 3. Mild right acromioclavicular joint osteoarthritis. 4. Mild right glenohumeral joint chondrosis with a small shoulder effusion and decompression. 5. Focal complex tear of the superior glenoid labrum with small paralabral cyst. The biceps tendon is likely torn and distally retracted. Electronically signed by: Abad Austin M.D. Narrative 09/20/2025 10:23 AM LABORER/KEY MAN EXAMINATION: 1. MRI right shoulder without contrast HISTORY: Right shoulder pain. Rotator cuff tear. COMPARISON: Radiographs 09/13/2025 FINDINGS: Multiplanar multisequence MR examination of the right shoulder was performed with a local coil. There is a type 2 acromion. The coracoacromial ligament is mildly thickened. Mild acromioclavicular joint osteoarthritis. The subacromial subdeltoid bursa communicates with the joint space. The rotator cuff muscle bulk is normal. Mild insertional subscapularis tendinosis. The biceps tendon is likely torn and retracted distally. 2.6 x 2.5 cm full-thickness tear of the supraspinatus superimposed on cuff tendinosis. Moderate infraspinatus cuff tendinosis with superimposed partial-thickness articular and interstitial tearing anteriorly. Complex tear of the superior glenoid labrum is present with a small paralabral cyst. The labrum below the equator is normal. Mild glenohumeral chondrosis. Small shoulder effusion is present with decompression. No loose bodies are identified. Procedure Note Abad Austin MD - 09/20/2025 EXAMINATION: 1. MRI right shoulder without contrast HISTORY: Right shoulder pain. Rotator cuff tear. COMPARISON: Radiographs 09/13/2025 FINDINGS: Multiplanar multisequence MR examination of the right shoulder was performed with a local coil. There is a type 2 acromion. The coracoacromial ligament is mildly thickened. Mild acromioclavicular joint osteoarthritis. The subacromial subdeltoid bursa communicates with the joint space. The rotator cuff muscle bulk is normal. Mild insertional subscapularis tendinosis. The biceps tendon is likely torn and retracted distally. 2.6 x 2.5 cm full-thickness tear of the supraspinatus superimposed on cuff tendinosis. Moderate infraspinatus cuff tendinosis with superimposed partial-thickness articular and interstitial tearing anteriorly. Complex tear of the superior glenoid labrum is present with a small paralabral cyst. The labrum below the equator is normal. Mild glenohumeral chondrosis. Small shoulder effusion is present with decompression. No loose bodies are identified. IMPRESSION: 1. 2.6 x 2.5 cm full-thickness tear of the supraspinatus superimposed on cuff tendinosis. 2. Moderate right and infraspinatus cuff tendinosis with superimposed partial-thickness articular and interstitial tearing. 3. Mild right acromioclavicular joint osteoarthritis. 4. Mild right glenohumeral joint chondrosis with a small shoulder effusion and decompression. 5. Focal complex tear of the superior glenoid labrum with small paralabral cyst. The biceps tendon is likely torn and distally retracted. Electronically signed by: Abad Austin M.D. Mejia RAMSEY IMG MRI PROCEDURES Fi nal Result * Calcium, ionized (09/17/2025 10:27 AM LABORER/KEY MAN) [facility] Calcium, Ionized, Serum 5.2 4.5 - 5.6 mg/dL [facility] - Blood 09/17/2025 10:2 7 AM LABORER/KEY MAN 09/17/2025 Narrative [facility] - 09/19/2025 7:37 AM LABORER/KEY MAN Performed at: [address] [place], [place] [id number] Mathematics Education Professor: Gerardo Lundberg PhD, Phone: [phone] Tamiko RAMSEY LAB BLOOD ORDERABLES Final Result Performing Organization Address [facility] Co de Phone Number [facility] * Uric acid (09/17/2025 10:27 AM LABORER/KEY MAN) [facility] Uric acid 5.2 3.8 - 8.4 mg/dL [facility] - Comment:Therapeutic target f or gout patients: <6.0 Blood 09/17/2025 10:2 7 AM LABORER/KEY MAN 09/17/2025 Narrative [facility] - 09/18/2025 9:36 AM LABORER/KEY MAN Performed at: [address] [place] [id number] Mathematics Education Professor: Gerardo Lundberg PhD, Phone: [phone] Tamiko RAMSEY LAB BLOOD ORDERABLES Final Result Performing Organization Address City/[facility] Co de Phone Number [facility] * TSH (09/17/2025 10:27 AM LABORER/KEY MAN) [facility] TSH 1.950 0.450 - 4.500 uIU/mL [facility] - Blood 09/17/2025 10:2 7 AM LABORER/KEY MAN 09/17/2025 Narrative [facility] - 09/18/2025 7:37 AM LABORER/KEY MAN Performed at: [address] [id number] Mathematics Education Professor: Gerardo Lundberg PhD, Phone: [phone] Tamiko RAMSEY LAB BLOOD ORDERABLES Final Result Performing Organization Address [facility] de Phone Number [facility] * PTH (09/17/2025 10:27 AM LABORER/KEY MAN) [facility] PTH Intact 23 15 - 65 pg/mL [facility] - 01 Blood 09/17/2025 10:2 7 AM LABORER/KEY MAN 09/17/2025 Narrative [facility] - 09/18/2025 9:36 AM LABORER/KEY MAN Performed at: [address] [id number] Mathematics Education Professor: Gerardo Lundberg PhD, Phone: [phone] Tamiko RAMSEY LAB BLOOD ORDERABLES Final Result Performing Organization Address [facility] Phone Number [facility] * Comprehensive metabolic panel (09/17/2025 10:27 AM LABORER/KEY MAN) [facility] Glucose 86 70 - 99 mg/dL [facility] - 01 BUN 22 8 - 27 mg/dL [facility] - 01 Creatinine, Serum 1.02 0.76 - 1.27 mg/dL [facility] - 01 eGFR 84 >59 mL/min/1.73 [facility] - 01 BUN/creat ratio 22 10 - 24 [facility] - 01 Sodium 140 134 - 144 mmol/L [facility] - 01 Potassium, sr 4.9 3.5 - 5.2 mmol/L [facility] - 01 Chloride 102 96 - 106 mmol/L [facility] - 01 CO2 24 20 - 29 mmol/L [facility] - 01 Calcium 9.5 8.6 - 10.2 mg/dL [facility] - 01 Protein, sr 6.6 6.0 - 8.5 g/dL [facility] - 01 Albumin 4.6 3.9 - 4.9 g/dL [facility] - 01 Globulin, Total 2.0 1.5 - 4.5 g/dL [facility] - 01 Bilirubin, Total 0.4 0.0 - 1.2 mg/dL [facility] - 01 Alk phos 81 47 - 123 IU/L [facility] - 01 AST 26 0 - 40 IU/L [facility] - 01 ALT 35 0 - 44 IU/L [facility] - 01 Blood 09/17/2025 10:2 7 AM LABORER/KEY MAN 09/17/2025 Narrative [facility] - 09/18/2025 7:37 AM LABORER/KEY MAN Performed at: - [facility] [id number] Mathematics Education Professor: Gerardo Lundberg PhD, Phone: [phone] Tamiko RAMSEY LAB BLOOD ORDERABLES Final Result [facility] - 01 * XR Shoulder Right 3 Views (09/13/2025 8:20 AM LABORER/KEY MAN) Anatomical Region Laterality Modality Upper Extremities, Shoulder Right Comp uted Radiography 09/13/2025 9:59 AM LABORER/KEY MAN Impressions 09/13/2025 9:59 AM LABORER/KEY MAN 1. Mild bilateral glenohumeral and acromioclavicular joint osteoarthritis. Electronically signed by: Abad Austin M.D. Narrative 09/13/2025 9:59 AM LABORER/KEY MAN EXAMINATION: XR SHOULDER LEFT 2 OR MORE VIEWS, XR SHOULDER RIGHT 2 OR MORE VIEWS HISTORY: PAIN. Bilateral shoulder osteoarthritis. FINDINGS: 4 views each shoulder submitted without comparison. No acute fracture. Alignment is normal. Mild bilateral glenohumeral and acromioclavicular joint osteoarthritis. Thoracic degenerative disc disease noted. Procedure Note Abad Austin MD - 09/13/2025 EXAMINATION: XR SHOULDER LEFT 2 OR MORE VIEWS, XR SHOULDER RIGHT 2 OR MORE VIEWS HISTORY: PAIN. Bilateral shoulder osteoarthritis. FINDINGS: 4 views each shoulder submitted without comparison. No acute fracture. Alignment is normal. Mild bilateral glenohumeral and acromioclavicular joint osteoarthritis. Thoracic degenerative disc disease noted. IMPRESSION: 1. Mild bilateral glenohumeral and acromioclavicular joint osteoarthritis. Electronically signed by: Abad Austin M.D. Mejia [facility] XR PROCEDURES Fin al Result * XR Shoulder Left 3 Views (09/13/2025 8:20 AM LABORER/KEY MAN) Anatomical Region Laterality Modality Upper Extremities, Shoulder Left Comp uted Radiography 09/13/2025 9:59 AM LABORER/KEY MAN Impressions 09/13/2025 9:59 AM LABORER/KEY MAN 1. Mild bilateral glenohumeral and acromioclavicular joint osteoarthritis. Electronically signed by: Abad Austin M.D. Narrative 09/13/2025 9:59 AM LABORER/KEY MAN EXAMINATION: XR SHOULDER LEFT 2 OR MORE VIEWS, XR SHOULDER RIGHT 2 OR MORE VIEWS HISTORY: PAIN. Bilateral shoulder osteoarthritis. FINDINGS: 4 views each shoulder submitted without comparison. No acute fracture. Alignment is normal. Mild bilateral glenohumeral and acromioclavicular joint osteoarthritis. Thoracic degenerative disc disease noted. Procedure Note Abad Austin MD - 09/13/2025 EXAMINATION: XR SHOULDER LEFT 2 OR MORE VIEWS, XR SHOULDER RIGHT 2 OR MORE VIEWS HISTORY: PAIN. Bilateral shoulder osteoarthritis. FINDINGS: 4 views each shoulder submitted without comparison. No acute fracture. Alignment is normal. Mild bilateral glenohumeral and acromioclavicular joint osteoarthritis. Thoracic degenerative disc disease noted. IMPRESSION: 1. Mild bilateral glenohumeral and acromioclavicular joint osteoarthritis. Electronically signed by: Abad Austin M.D. Mejia BAZZI XR PROCEDURES Fin al Result * SCAN - LABS (09/10/2025) Provider Scanning Edited Result - Final * SCAN - RADIOLOGY/IMAGING (09/09/2025) Anatomical Region Laterality Modality Other us Provider Scanning Final Result * HM COLONOSCOPY (04/15/2025 11:10 AM CDT) Scribed Colonoscopy Normal Impressions Rosanna Tsai, CASEY - 04/15/2025 11:10 AM CDT Normal colonoscopy to depth of insertion . No polyps no neoplasia Historical Provider [facility] Edited Result - Final * PSA screen (12/31/2021 8:09 AM LABORER/KEY MAN) PSA 1.3 0.0 - 4.0 ng/mL [facility] - 01 Comment: Sergio ECLIA methodology. According to the [place] [employer], Serum PSA should decrease and [...] absence of malignant disease. 12/31/2021 8:09 AM LABORER/KEY MAN 12/31/2021 Narrative [facility] - 01/01/2022 4:11 PM LABORER/KEY MAN Performed at: - [facility] [id number] Mathematics Education Professor: Gerardo Lundberg PhD, Phone: [phone] Tamiko RAMSEY LAB BLOOD ORDERABLES Final Result [facility] - 01 from Last 3 Months or Most Recently Relevant to Health Maintenance Insurance [employer] [facility] Care Teams Tool Maker Bench Relationship Specialty Start Date End Date Tamiko Solitario PA [address] [address] PCP - General Internal Medicine 02/01/19
--- OUTSIDE RECORDS SUMMARY | 2025-10-08 02:05 | XMS_ITS | Encounter Summary ---
Author Organization [facility] Healthcare Address [address] [place] [address] Care Team Providers Care Food And Beverage Lead Name Role Phone Tamiko Solitario Primary Care Provider [phone] Reason for Visit * Reason Onset Date Comments CRITICAL LAB RESULTS 09/12/2025 Encounter Details Date Type Department Care Team (Late st Contact Info) Description 09/12/2025 Nurse Triage [facility] Medical Group Patient Access [address] [facility] [address] [place] [phone] Ashley Brasher RN Social History Tobacco Use Types Packs/Day Years [...] on file Legal Sex Male 8:44 PM LOT ATTENDANT Gender Identity Male 08/04/2021 1:13 PM CDT Sexual Orientation Not on file 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 PCP reviewed reports and gave verbal to send Bactrim DS BIDX 7 days. Called pt to inform him of new order. Medication sent. Pt [facility] also [facility] to follow [facility]. ATTENDANT * Telephone Encounter - Madina Barry LPN - 09/17/2025 8:11 AM LOT ATTENDANT Called [facility] records to request final result of blood cultures. ATTENDANT * Telephone Encounter - Madina Barry LPN - 09/12/2025 3:56 PM LOT ATTENDANT Labs placed per PCP. Pt made aware via [employer] per his request. Will pend this message this message to follow up on blood culture final report early next week if not yet received. ATTENDANT * Telephone Encounter - Tamiko Solitario PA - 09/12/2025 3:45 PM LOT ATTENDANT Ok to check the TSH, Uric acid, PTH, CMP and ionized calcium. Dx: kidney stones and hypothyroid ATTENDANT * Telephone Encounter - Madina Barry LPN - 09/12/2025 2:39 PM LOT ATTENDANT Called to check on pt and he stated he is feeling better. He is a little sore but otherwise is doing much better. No s/sx of sepsis. Pt picked up Keflex from pharmacy and started it. He stated he is following up with urology soon. Urologist stated that pt may need a full thyroid panel done since heis having an increased number of stones. He stated that the urologist said they could order it if PCP did not want to. Pt prefers [facility]. Please advise. ATTENDANT * Telephone Encounter - Tamiko Solitario PA - 09/12/2025 2:15 PM LOT ATTENDANT Patient was treated with Rocephin at [facility] and discharged with keflex. Diagnosis Kidney stone/UTI Only one bottle (aerobic) with gram positive cocci --- Check on patient Check for s/s sepsis. If he is feeling better, will await final culture results as suspect contaminant vs treatment already covering. ATTENDANT * Telephone Encounter - Madina Barry LPN - 09/12/2025 1:24 PM LOT ATTENDANT All lab results received along with discharge instructions. Please review and advise on treatment. Pt was discharged on Cephalexin 500 mg PO Q 8 hours x 5 days. ATTENDANT * Telephone Encounter - Madina Barry LPN - 09/12/2025 1:05 PM LOT ATTENDANT Results have not yet been received. Call placed to [facility] lab to request report be faxed. ATTENDANT * Telephone Encounter - Ashley Brasher RN - 09/12/2025 5:19 AM LOT ATTENDANT Regarding: Critical Labs ----- Message from Tia Montoya sent at 09/12/2025 5:18 AM LOT ATTENDANT ----- Critical Lab for Blood Cultures. Labs drawn 09/10/25. Results to be given to physician correspondence transcriber only. S=CRITICAL LAB RESULTS B=Aerobic blood culture gram positive for cocci [facility] MESSAGE: Anything I need to do other than send to provider? [facility] RESPONSE: No just forward to the PCP A=DISPOSITION PER GUIDELINE=CALL PCP NOW R-HOME CARE/SELF CARE INSTRUCTIONS=Verbalized understanding ATTENDANT ATTENDANT documented in this encounter Plan of Treatment Not on file documented as of this encounter Visit Diagnoses Not on filedocumented in this encounter Care Teams Food And Beverage Lead Relationship Specialty [place] [address] [place] [id number] PCP - General Internal Medicine 02/01/19 documented as of this encounter
--- OUTSIDE RECORDS SUMMARY | 2025-10-08 02:05 | XMS_ITS | Clinical Summary ---
Author Organization [facility] Address [address] [facility] [place] [address] Care Team Providers Care Technical Business Analyst Name Role Phone Addison Hanna MD Primary Care Provider Vivi vailable Allergies No known active allergies Medications meloxicam (MOBIC) 15 MG tablet TAKE 1 TABLET BY MOUTH EVERY DAY 1 11/17/2016 Active escitalopram oxalate (LEXAPRO) 10 MG tablet Take 10 mg by mouth daily. Active Immunizations Immunization Administration Dates Next Due Flucelvax Trivalent Prefilled Syringe (18+MOS) 0 07/04/2025 Family History Medical History Relation Comments Cancer Father Diabetes Father Relation Status Comments Father Social History Tobacco Use Types Packs/Day Years Used Date Smoking Tobacco: Never Smokeless Tobacco: Never Sex and Gender Information Value Date Recorded Sex Assigned at Not on file Legal Sex Male 5:30 PM EDT Gender Identity Not on file Sexual Orientation Not on file Last Filed Vital Signs Vital Sign Reading Time Taken Comments Blood Pressure 120/82 02/15/2018 9:38 AM CDT Pulse 86 02/15/2018 9:38 AM CDT Temperature 37.1 C (98.7 F) 08/21/2017 10:48 AM CDT Respiratory Rate 14 02/15/2018 9:38 AM CDT Oxygen Saturation 97% 02/15/2018 9:38 AM CDT Inhaled Oxygen Concentration - - Weight 114 kg (251 lb 14.4 oz) 02/15/2018 9:38 A M CDT Height 177.8 cm (5' 10) 02/15/2018 9:38 AM CDT Body Mass Index 36.14 02/15/2018 9:38 AM CDT Plan of Treatment Not on file Medical Devices Not on file Insurance [facility] HEALTH on file [facility] Care Teams Technical Business Analyst Relationship Specialty Start Date End Date Addison Hanna MD PCP - General Family Medicine 08/21/17
--- NOTE | 2025-10-08 06:54 | WPDANESEPPF ---
Anes - Initial Pre Proc Eval Procedure: Operation Date: 10/08/25 08:30 Proposed Procedures p Cystoscopy, Right Retrograde Pyelogram, Right Ureteroscopy, Laser Lithotripsy Stone Basket Extraction, Right Ureteral Stent Exchange - Conrad Lundberg MD Date/Time: 10/08/25 06:54 Surgeon: Conrda Lundberg MD Pre Op Diagnosis: right ureteral and renal stones Patient Data Age: 59 Gender: M Height: 1.8 m Weight: 102.1 kg Allergies Allergy/AdvReac Type Severity Reaction Status Date / Time levothyroxine sodium (From Allergy Severe Hives Verified 10/04/25 09:20 Levothroid) Home Medications ?Medication ?Instructions ?Recorded ?Confirmed ?Type escitalopram oxalate 20 mg tablet 30 mg PO DAILY 12/28/19 10/04/25 History fexofenadine 60 mg tablet (Herlinda 180 mg PO DAILY 12/28/19 10/04/25 History Allergy) meloxicam 15 mg tablet 15 mg PO DAILY 12/28/19 10/04/25 History testosterone cypionate 200 mg/mL 100 mg IM .biweekly 12/28/19 10/04/25 History intramuscular oil thyroid (pork) 60 mg tablet 60 mg PO DAILY 12/28/19 10/04/25 History ([place] Thyroid) vitamin B complex (Super B-50 1 cap PO DAILY 12/28/19 10/04/25 History Complex capsule) antiarthritic combination no.2 900 900 mg PO DAILY 08/11/22 10/04/25 History mg tablet (glucosamine-chondroitin) bupropion HCl 300 mg 24 hr tablet, 300 mg PO QAM 08/11/22 10/04/25 History extended release cholecalciferol (vitamin D3) 125 125 mcg PO DAILY 08/11/22 10/04/25 History mcg (5,000 unit) capsule omega-3 fatty acids-fish oil 360 1 cap PO DAILY 08/11/22 10/04/25 History mg-1,200 mg capsule (Fish Oil) acetaminophen 500 mg tablet 1,000 mg (2 x 500 mg) PO TID PRN 12/14/24 10/04/25 Rx (Tylenol Extra Strength) pain #30 tabs fluticasone propionate 50 2 spray intranasal Q12H PRN 09/09/25 10/04/25 History mcg/actuation nasal congestion spray,suspension magnesium oxide 400 mg PO DAILY 09/09/25 10/04/25 History tamsulosin 0.4 mg capsule 0.4 mg PO Q24H 09/09/25 10/04/25 History triamcinolone acetonide 0.1 % 1 applic topical BID 09/09/25 10/04/25 History topical cream zinc gluconate 50 mg tablet 50 mg PO ONCE 09/09/25 10/04/25 History Patient hx anesthesia problems: none Family hx anesthesia problems: none Results Review: All pre-operative results and documents have been reviewed as part of the pre-operative evaluation. [facility] Past Medical History Medical History Tear of left rotator cuff History of kidney stones Thyroid disorder Hypertension Arthritis Asthma Allergies Adenomatous colon polyp Renal lithiasis Depression Hypothyroidism JULES (obstructive sleep apnea) Surgical History Surgical History History of elbow surgery right elbow H/O lithotripsy Hx of colonoscopy Family History Family History Mother Cerebrovascular accident Family history of kidney stones Asthma Depression Thyroid disorder Father Family history of diabetes mellitus in first degree relative Family history of primary malignant neoplasm of liver Family history of malignant neoplasm of kidney Diabetes mellitus Hypertension Depression Heart disease Cerebrovascular accident Sibling Depression Social History Social History Social History: He is but from his currently. He has one adopted daughter . 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 Spiritual care concerns: No Anes - Eval Final PreProcedure Day of Procedure 10/08/25 06:54 Patient weight: obese Heart: regular rate and rhythm Lungs: clear to auscultation Airway: Mallampati scale class II Neurological: alert and oriented Last oral intake: >/= 8 hours ASA classification: III Emergent: no Anesthetic plan: proceed Anesthesia type and monitoring: general LMA and standard monitoring Results Review: All pre-operative results and documents have been reviewed as part of the pre-operative evaluation. Informed Consent: The patient's anesthetic plan and its attendant risks and benefits were discussed with the patient/family/POA. Questions were solicited and answers provided to the satisfaction of the patient/family/POA.
[2025-10-08] MEDS: LACTATED RINGERS 1,000 ML 30 ML IV CONT ×2 (07:00→09:18)
--- NOTE | 2025-10-08 07:28 | WPDHPUPDATE1 ---
History and Physical Update Update Date/Time: 10/08/25 07:28 History and Physical has been reviewed, including an updated exam of the patient. There are NO changes in the patient's condition. Risks, benefits, and alternatives have been discussed and questions answered. Patient agrees to proceed with procedure.
--- NOTE | 2025-10-08 07:29 | PM.HPGS ---
History of Present Illness History of Present Illness Consent: Risks, benefits, and alternatives have been discussed and questions answered. Patient agrees to proceed with procedure. Chief complaint: right ureteral and renal stones Narrative: Rah Chang is a 59 year old male with history of urolithiasis who underwent placement of a right ureteral stent on 09/10/2025 for a 9 mm right proximal ureteral stone. He also has several additional right renal stones. He presents today for endoscopic management of his right-sided urinary tract stones. Preoperative urine culture 09/27/2025 negative for UTI. Patient otherwise denies any changes passes baseline is ready for the procedure today. Review of Systems Review of Systems: Constitutional: No fevers or chills Eyes: No changes in vision HENT: No hearing loss Cardiovascular: No chest pain or palpitations Respiratory: No shortness of breath, cough, wheezing GI: No abdominal pain, nausea, or vomiting : No dysuria or difficulty urinating Heme: No easy bruising or bleeding Skin: No rash or itching MSK: No myalgias or joint pain Psych: No hallucinations Neuro: No lateralized numbness or tingling PMFSH Past Medical History Medical History Tear of left rotator cuff History of kidney stones Thyroid disorder Hypertension Arthritis Asthma Allergies Adenomatous colon polyp Renal lithiasis Depression Hypothyroidism JULES (obstructive sleep apnea) Surgical History Surgical History History of elbow surgery right elbow H/O lithotripsy Hx of colonoscopy Family History Family History Mother Cerebrovascular accident Family history of kidney stones Asthma Depression Thyroid disorder Father Family history of diabetes mellitus in first degree relative Family history of primary malignant neoplasm of liver Family history of malignant neoplasm of kidney Diabetes mellitus Hypertension Depression Heart disease Cerebrovascular accident Sibling Depression Social History Social History Social History: He is but from his currently. He has one adopted daughter . 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- [employer] Spiritual care concerns: No Meds Home Medications and Allergies Home Medications ?Medication ?Instructions ?Recorded ?Confirmed ?Type escitalopram oxalate 20 mg tablet 30 mg PO DAILY 12/28/19 10/04/25 History fexofenadine 60 mg tablet (Herlinda 180 mg PO DAILY 12/28/19 10/04/25 History Allergy) meloxicam 15 mg tablet 15 mg PO DAILY 12/28/19 10/04/25 History testosterone cypionate 200 mg/mL 100 mg IM .biweekly 12/28/19 10/04/25 History intramuscular oil thyroid (pork) 60 mg tablet 60 mg PO DAILY 12/28/19 10/04/25 History (Indiahoma Thyroid) vitamin B complex (Super B-50 1 cap PO DAILY 12/28/19 10/04/25 History Complex capsule) antiarthritic combination no.2 900 900 mg PO DAILY 08/11/22 10/04/25 History mg tablet (glucosamine-chondroitin) bupropion HCl 300 mg 24 hr tablet, 300 mg PO QAM 08/11/22 10/04/25 History extended release cholecalciferol (vitamin D3) 125 125 mcg PO DAILY 08/11/22 10/04/25 History mcg (5,000 unit) capsule omega-3 fatty acids-fish oil 360 1 cap PO DAILY 08/11/22 10/04/25 History mg-1,200 mg capsule (Fish Oil) acetaminophen 500 mg tablet 1,000 mg (2 x 500 mg) PO TID PRN 12/14/24 10/04/25 Rx (Tylenol Extra Strength) pain #30 tabs fluticasone propionate 50 2 spray intranasal Q12H PRN 09/09/25 10/04/25 History mcg/actuation nasal congestion spray,suspension magnesium oxide 400 mg PO DAILY 09/09/25 10/04/25 History tamsulosin 0.4 mg capsule 0.4 mg PO Q24H 09/09/25 10/04/25 History triamcinolone acetonide 0.1 % 1 applic topical BID 09/09/25 10/04/25 History topical cream zinc gluconate 50 mg tablet 50 mg PO ONCE 09/09/25 10/04/25 History Allergies Allergy/AdvReac Type Severity Reaction Status Date / Time levothyroxine sodium (From Allergy Severe Hives Verified 10/08/25 07:10 Levothroid) Vital Signs Vital Signs - 24 hr 10/08/25 07:11 Temperature 36.8 C Pulse Rate 100 Blood Pressure 144/89 H Pulse Oximetry 97 Oxygen Delivery Room Air Exam Narrative: General: Alert, no acute distress Head: Normocephalic, atraumatic Eyes: Extraocular movements intact Neck: No JVD, trachea midline Respiratory: Symmetric chest rise, nonlabored breathing on room air CV: Normal rate, adequate peripheral perfusion Abdomen: Soft, nontender, nondistended Skin: Warm/dry Extremities: No peripheral edema, no cyanosis Neuro: No focal deficits Psych: Answers questions appropriately, appropriate mood Assessment and Plan Assessment and plan (1) Right ureteral stone: Code(s): N20.1 - Calculus of ureter Status: Acute Assessment and Plan: 59-year-old male with a 9 mm right proximal ureteral stone in addition to multiple right renal stones status post placement of right ureteral stent on 09/10/2025 - To OR for cystoscopy, right retrograde pyelogram, ureteroscopy, laser lithotripsy, stone basket extraction, right ureteral stent exchange - Risks, benefits, alternatives reviewed with the patient. He is amenable to proceed - Anticipate discharge home thereafter
[2025-10-08] MEDS: ceFAZolin 2 GM in SODIUM CHLORIDE 0.9% IV 50 ML 100 ML IVPB (07:36)
--- NOTE | 2025-10-08 09:02 | S_PTH ---
PATIENT: Rah Chang LOC: [facility] U#:[id number] AGE/SX: 59/M ROOM: RE10/08/[address]: Conrad Lundberg MD : [id number] BED: DIS: 10/08/2025 SPEC #: [id number] RECD: 10/08/25 09:05 STATUS: OSIEL MARTINEZ #: [id number] RIKKI: 10/08/25 09:[address]: Conrad Lundberg DEPT: [facility] Surgical RECD BY: Willy Carson ENTERED: 10/08/25 09:06 SP TYPE: Surgical OTHR DR: Tamiko Solitario, PA Tissues: A - Stone Procedures: Gross Exam Level 1 Crystalline Analysis
[2025-10-08] MEDS: fentaNYL CITRATE INJ (*CRX) 100 MCG/2 ML VIAL 25 MCG IV PUSH ×4 (09:25→10:05)
--- NOTE | 2025-10-08 09:25 | P.OP_ITS ---
Procedure Note - Detailed Date of Procedure 10/08/25 Pre-op Diagnosis right ureteral and renal stones Post-op Diagnosis Same Procedure Performed 1. Cystoscopy 2. Urethral calibration and dilation 3. Right retrograde pyelogram with intraoperative interpretation 4. Right ureteroscopy 5. Laser lithotripsy 6. Stone basket extraction 7. Right ureteral stent exchange Surgeon Conrad Lundberg MD Anesthesia General Findings 1. Modifier 22 -- please note that this case required significantly greater effort, increased intensity, time, technical difficulty of procedure, and physical and mental effort required, than is usually needed for this procedure due to the patient's large stone burden measuring at least 2.5 cm. 2. 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 3. After advancement of a Sensor wire into the right kidney, I was unable to advance the cystoscope due to some degree of meatal narrowing. As such, I sequentially calibrated and dilated the patient's distal most urethra in 2 Portuguese increments from 20 Portuguese to 26 Portuguese. Afterwards as able to advance the cystoscope atraumatically transurethrally into the patient's bladder 4. Right renal endoscopy revealed 2 fairly large stones in the right lower pole of the kidney as well as several scattered smaller stones measuring about 2 mm each. These were successfully fragmented with the laser fiber into sub 1 mm fragments. During pullback ureteroscopy, I encountered the patient's larger 9 mm stone which was successfully dusted and fragmented with the laser fiber and the larger fragments were retrieved with the basket. Completion ureteroscopy revealed no residual ureteral stones no notable injury 5. Right retrograde pyelogram performed after stone treatment using a 50 50 mixture of contrast and saline showed no hydroureteronephrosis, filling defects, or contrast extravasation 6. Successful right ureteral stent exchange without strings attached Description of Procedure After informed consent was obtained, the patient was brought back to the operating theatre and placed in the supine position on the operating table. Pre- operative antibiotics were confirmed to have been administered. Anesthesia was induced. The patient was moved into the dorsal lithotomy position and prepped and draped in the standard sterile fashion for an endoscopic case. All pressure points were padded. Bilateral sequential compression devices were on and noted to be functioning. A formal timeout was performed with Dr. Lundberg in attendance to confirm the correct patient, site/laterality, and procedure and all were in agreement to proceed. To begin with, I atraumatically advanced a lubricated 22-Portuguese rigid cystoscope transurethrally into the patient's bladder. Pancystoscopy was performed with findings as noted above. Attention was then turned to the right ureteral orifice, from which was seen emanating patient's existing right ureteral stent in appropriate position. Alongside the stent I advanced a Sensor wire up to the level of the right kidney under fluoroscopy. I then removed the cystoscope and secured the Sensor wire to the drapes with a hemostat. I then attempted to reinsert the cystoscope alongside the wire transurethrally, but I was meeting resistance at the urethral meatus. As such, I called for Ashlie sounds and I sequentially calibrated and dilated the patient's distal most urethra in 2 Portuguese increments from 20 Portuguese to 26 Portuguese. Afterwards I was able to atraumatically advance the cystoscope into the bladder. I used flexible graspers to retrieve the existing stent and brought out through the urethral meatus. I then cannulated the existing stent with a 2nd safety Glidewire was also advanced up to the level of the right kidney under fluoroscopy. Next, under direct fluoroscopic guidance I advanced the 12/14 Portuguese 46 cm ureteral access sheath and advanced this to the level of the right proximal ureter. I removed the inner sheath and then advanced the flexible digital ureteral scope through the ureteral access sheath and advanced the scope into the kidney. I performed renal endoscopy, exploring the upper, mid, and lower poles of the kidney as well as the renal pelvis. Patient had 2 fairly large stones measuring about 7 mm each in the right lower pole. There were also several scattered smaller stones about 2 mm throughout the kidney. All of the stones were dusted with a 200 micron Charlie laser. One slightly larger fragment was retrieved as a specimen to be sent for kidney stone analysis. I then re-explored the right kidney and did not appreciate any sizable stones remaining. Through the ureteral scope I then performed a right-sided retrograde pyelogram in order to delineate the right collecting system in anticipation of stent placement; please see above for intraoperative retrograde pyelogram findings. Next, I then performed pullback ureteroscopy was somewhat easily removing the ureteral access sheath. At the level of the right mid to proximal ureter I encountered a large 9 mm stone commensurate with the patient's prior CT scan. The patient's total stone burden measured at least 2.5 cm. I used the Charlie laser to dust and fragment the stone into smaller pieces; any larger pieces were retrieved with a ZeroTip Nitinol basket. Completion ureteroscopy revealed no residual right ureteral stones nor notable injury. Next, with the ureteral scope and ureteral access sheath removed, I backloaded the cystoscope onto the Sensor wire was advanced transurethrally the patient's bladder with attention on the right ear orifice. Over top of the wire, a 6-Portuguese x 26 cm JJ stent was advanced and the pusher was used to deploy the stent in place, confirming a good proximal curl in the right kidney under fluoroscopy and a good distal curl in the bladder under both fluoroscopic and direct cystoscopic vision. The patient's bladder was then emptied and the cystoscope was removed, essentially concluding the case. At the conclusion of the case all sponge, instrument, and sharp counts were correct x 2. The patient was then awoken from anesthesia and taken to the recovery room in stable condition. The patient tolerated the procedure well and there were no immediate complications noted. Disposition: The patient will monitor in the PACU with discharge home is clearing PACU protocol. Per the patient's preoperative wishes, no friend or family was provided with a postoperative update. He will follow-up in the Urology Clinic in about 2 weeks for office cystoscopy and right ureteral stent removal.
== END 2025-10-08 12:30 | disposition home or self-care (01) ==
PROVIDERS: PCP Physician Assistant; Visit Provider Urology
PROC: (CPT 52352; principal; 2025-10-08 08:30)
DX: N20.2 Calculus of kidney with calculus of ureter (principal); E66.9 Obesity, unspecified; Z68.32 Body mass index [BMI] 32.0-32.9, adult
CPT/HCPCS: 52356; 74420; 82365; 88300; J0690; C1758; C1769; C2617; J1100; J2003; J2250; J2405; J2704; J3010; J7120; Q9966